=== PATIENT | female | born 1965 | race Caucasian/White ===

== ENCOUNTER 2019-03-29 13:56 | Outpatient (CLI) | payer OTHER, MEDICARE, SELFPAY ==
--- NOTE | ~2019-03-29 | CT_ITS ---
EXAMINATION: CT hip RT wo con DATE: 03/29/2019 14:31 INDICATION: Right hip pain. TECHNIQUE: Computed tomography (CT) of the right hip was performed without intravenous contrast. Auto mated exposure control and iterative reconstruction technique were employed. The dose-length product was 344.60 mGy-cm. COMPARISON: None FINDINGS: There is an electrode in right S3 neural foramen with generator in the subcutaneous fat. Th ere are changes of anterior and posterior fusion procedures at L4-L5 with interbody device, pedicle s crews, and anterior plate and screws. No fracture. There is mild osteoarthritis of right sacroiliac j oint and right hip joint. IMPRESSION: 1. Mild right hip osteoarthritis. Reviewed, dictated and finalized at location A. GE RN
== END 2019-03-29 13:57 | disposition home or self-care (01) ==
PROVIDERS: PCP Internal Medicine
DX: M16.11 Unilateral primary osteoarthritis, right hip (principal)
CPT/HCPCS: 73700

== ENCOUNTER → 2022-10-30 10:34 | Outpatient (CLI) | payer OTHER, MEDICARE, SELFPAY ==
--- NOTE | ~2022-10-30 | CT_ITS ---
EXAMINATION: CT cervical spine wo con DATE: 10/30/2022 10:53 INDICATION: Spinal stenosis, cervical region. Neck pain. TECHNIQUE: Computed tomography (CT) of the cervical spine was performed without intravenous contrast. Automated exposure control and iterative reconstruction technique were employed. The dose-length pro duct was 237.92 mGy-cm. COMPARISON: Cervical spine CT 07/26/2014 FINDINGS: There is 6 degrees levocurvature of cervicothoracic spine. There is 2 mm anterolisthesis of C4 on C5 and C7 on T1. There is kyphosis of cervical spine. There is 2 mm retrolisthesis of C5 on C6 with interbody fusion. There is moderately decreased disc height at C3-C4 and severely decreased dis c height at C6-C7. The following disc levels are specifically discussed: C2-C3: There is no uncovertebral joint osteoarthritis. There is mild bilateral facet joint osteoarthr itis. There is no neural foraminal stenosis. There is no central canal stenosis. C3-C4: There is moderate right and severe left uncovertebral joint osteoarthritis. There is mild righ t and severe left facet joint osteoarthritis. There is mild bilateral neural foraminal stenosis. Ther e is mild central canal stenosis. C4-C5: There is mild bilateral uncovertebral joint osteoarthritis. There is severe right and mild lef t facet joint osteoarthritis. There is moderate right neural foraminal stenosis. There is mild centra l canal stenosis. C5-C6: There is ankylosis of the uncovertebral joints without hypertrophy. There is ankylosis of the facet joints with mild hypertrophy. There is no neural foraminal stenosis. There is no central canal stenosis. C6-C7: There is severe bilateral uncovertebral joint osteoarthritis. There is severe right and modera te left facet joint osteoarthritis. There is mild right and moderate left neural foraminal stenosis. There is mild central canal stenosis. C7-T1: There is no uncovertebral joint osteoarthritis. There is severe bilateral facet joint osteoart hritis. There is mild bilateral neural foraminal stenosis. There is no central canal stenosis. IMPRESSION: 1. Severe cervical spondylosis, worsened from 07/26/2014. 2. Anterior and posterior fusion at C5-C6. Reviewed, dictated and finalized at location E.
== END ==
PROVIDERS: PCP Internal Medicine; Visit Provider Internal Medicine
DX: M48.02 Spinal stenosis, cervical region (principal); M47.892 Other spondylosis, cervical region; Z98.1 Arthrodesis status
CPT/HCPCS: 72125

== ENCOUNTER 2023-03-11 13:57 | Outpatient (CLI) | payer OTHER, MEDICARE, SELFPAY ==
--- NOTE | ~2023-03-11 | XR_ITS ---
EXAMINATION: XR chest 2V 03/11/2023 14:12 INDICATION: Cough PROCEDURE: 2 view chest COMPARISON: No prior studies for comparison. FINDINGS: The lungs are clear. The cardiomediastinal silhouette is within normal limits. There are no pleural effusions. There is no pneumothorax suspected. Spinal leads are noted overlying the lowe r thoracic spine. IMPRESSION: 1: NO ACUTE CARDIOPULMONARY DISEASE. Reviewed, dictated and finalized at location L. R RECONNAISSANCE SPECIALIST
== END 2023-03-11 13:58 ==
PROVIDERS: PCP Internal Medicine; Visit Provider Internal Medicine
DX: R05.9 Cough, unspecified (principal)
CPT/HCPCS: 71046

== ENCOUNTER 2024-06-21 08:30 | Outpatient (CLI) | payer MEDICARE, SELFPAY ==
--- OUTSIDE RECORDS SUMMARY | 2024-06-21 08:34 | XMS_ITS | CONTINUITY OF CARE DOCUMENT ---
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 Name Role Phone Dima MARTINEZ, Umesh Unavailable TRINI MARTINEZ, CHICO Unavailable [phone] TRINI MARTINEZ, CHICO Unavailable [phone] PROBLEMS Condition Status Date Provider Notes PALPITATIONS active Tiffanie Staadairschmidtani DEPRESSION active Tiffanie Staadairschmidt ANXIETY DISORDER GENERALIZED active Tiffanie Covingtonmidtani SHORTNESS OF BREATH SLEEP AP NIKKI USES CPAP active Umesh Ch MD CHEST PAIN-NL STRESS TEST IN 07 completed - Umesh Ch MD HYPERCHOLESTEROLEMIA completed - Umesh Ch MD CAD completed - Umesh Ch MD BACK PAIN, CHRONIC WITH ATON IC BLADDER active Umesh Ch MD Family History Coronary Hear t Disease male < 55: active ? Umesh Ch MD Chest pain--CCS zero , 10/2022 active Rudy Penn Petechiae active David Rodrigues MD Elevated LFT's active David Rodrigues MD Hypertension--echo ef nl, 08/2022 active To payton Ch MD Hyperlipidemia active Umesh Ch MD Elevated liver enzymes active Umesh Ch MD ENCOUNTERS Date Type Provider Location Encounter Diag nosis 11/01 - 11/01 In-person encounter Office Visit Umesh Ch MD [facility] Chest pain--CCS zero , 10/2022 - 08/25 In-person encounter Office Visit Umesh Ch MD [facility] 10/06 - 10/06 In-person encounter Office Visit Umesh Ch MD [facility] HYPERCHOLESTEROLEMIAHyperlipidemiaElevat ed liver enzymes 09/28 - 09/28 In-person encounter Office Visit Umesh Ch MD [facility] 09/10 - 09/10 In-person encounter Office Visit Umesh Ch MD [facility] Hypertension--echo ef nl, 08/2022 - 04/13 In-person encounter Office Visit David Rodrigues MD [facility] Elevated LFT's 03/15 - 03/23 In-person encounter Office Visit David Rodrigues MD [facility] Petechiae 02/21 - 02/21 In-person encounter Office Visit Umesh Ch MD [facility] CHEST PAIN-NL STRESS TEST IN 07Chest pain--CCS zero , 10/2022 - 09/19 In-person encounter Office Visit Umesh Ch MD [facility] 04/02 - 04/02 In-person encounter Office Visit Umesh Ch MD [facility] Family History Coronary Heart Disease ma le < 55: 04/03 - 04/04 In-person encounter Office Visit Umesh Ch MD [facility] 04/04 - 04/05 In-person encounter Office Visit Umesh Ch MD [facility] 03/30 - 04/01 In-person encounter Office Visit Umesh Ch MD [facility] 08/05 - 08/05 In-person encounter Office Visit Umesh Ch MD [facility] BACK PAIN, CHRONIC WITH ATONIC BLADDER 04/03 - 04/03 In-person encounter Office Visit Umesh Ch MD [facility] 09/03 - 09/04 In-person encounter Office Visit Umesh Ch MD [facility] SHORTNESS OF BREATH SLEEP APNEA USES CPA PCAD 04/04 - 04/04 In-person encounter Office Visit Umesh Ch MD [facility] 08/03 - 08/06 In-person encounter Office Visit Umesh Ch MD [facility] 03/02 - 03/05 In-person encounter Office Visit Umesh Ch MD [facility] VITAL SIGNS Date Observation Value Provider Body Mass Index (Ratio) 31.01 kg/m2 Easton Ch MD blood pressure, cuff size regular Ke glen Villalobos blood pressure, diastolic 84 mm[Hg] Ke rrbenjamin Villalobos blood pressure, systolic 130 mm[Hg] Santana Villalobos oxygen saturation, oximetry 96 % Juany Villalobos respiratory rate E&M 12 /min Juany barragan pulse rate 90 /min Juany Zavaleta [facility] weight E&M 198 [lb_av] Juany Zavaleta [facility] height E&M 67 [in_i] Juany Zavaleta [facility] Body Mass Index (Ratio) 30.38 kg/m2 Easton Ch MD blood pressure, diastolic 84 mm[Hg] Libia Vidal blood pressure, systolic 138 mm[Hg] She elma Vidal pulse rate 103 /min Jie Vidal oxygen saturation, oximetry 98 % Jie Vidal weight E&M 194 [lb_av] Jie Vidal blood pressure, cuff size regular caro Vidal height E&M 67 [in_i] Jie Vidal Body Mass Index (Ratio) 29.29 kg/m2 Easton Ch MD blood pressure, diastolic 92 mm[Hg] Li nkLog blood pressure, systolic 164 mm[Hg] Madhavi kLog blood pressure, cuff size large Ke rri Fengnejagdish blood pressure, diastolic 92 mm[Hg] Ke rri Fengyelena blood pressure, systolic 164 mm[Hg] Santana ri Griselda oxygen saturation, oximetry 98 % Juany Griselda respiratory rate E&M 16 /min Juany Morrell [facility] pulse rate 81 /min Juany Aztay [facility] weight E&M 187 [lb_av] Juany Waqar [facility] height E&M 67 [in_i] Juany Waqar [facility] Body Mass Index (Ratio) 30.38 kg/m2 Easton Ch MD blood pressure, resting Yes [facility] blood pressure, diastolic 96 mm[Hg] To [facility] blood pressure, systolic 145 mm[Hg] [facility] oxygen saturation, oximetry 98 % [facility] respiratory rate E&M 16 /min [facility] pulse rate 85 /min [facility] weight E&M 194 [lb_av] [facility] height E&M 67 [in_i] [facility] Body Mass Index (Ratio) 31.95 kg/m2 Kaylee Rodrigues MD blood pressure, diastolic 92 mm[Hg] Zoraida Pringle blood pressure, systolic 158 mm[Hg] Danyell Pringle oxygen saturation, oximetry 94 % Iris Pringle respiratory rate E&M 18 /min Candice Pringle pulse rate 89 /min Iris child weight E&M 204.0 [lb_av] Iris torres height E&M 67 [in_i] Iris Rae lanettemalcolm Body Mass Index (Ratio) 31.63 kg/m2 Kaylee Rodrigues MD blood pressure, cuff size regular Ke rri Griselda blood pressure, diastolic 90 mm[Hg] Ke rri Griselda blood pressure, systolic 160 mm[Hg] Santana paulino Griselda oxygen saturation, oximetry 97 % Juany Griselda respiratory rate E&M 16 /min Juany barragan pulse rate 62 /min Juany Waqar lder weight E&M 202 [lb_av] Juany Waqar er height E&M 67 [in_i] Juany Waqar er blood pressure, diastolic 80 mm[Hg] Zoraida Pringle blood pressure, systolic 136 mm[Hg] Danyell Pringle pulse rate 73 /min Iris Rae lanettemalcolm oxygen saturation, oximetry 98 % Iris Pringle respiratory rate E&M 18 /min Candice Pringle Body Mass Index (Ratio) 32.10 kg/m2 Grace Pringle weight E&M 205 [lb_av] Iris Rae lanettemalcolm pulse rate 75 /min Esther Page oxygen saturation, oximetry 100 % Esther Page respiratory rate E&M 18 /min Estherarash Page blood pressure, diastolic 90 mm[Hg] Kr isty Duncan blood pressure, systolic 130 mm[Hg] Aleni leena Page Body Mass Index (Ratio) 30.85 kg/m2 Ran Page weight E&M 197 [lb_av] Esther Page blood pressure, diastolic 79 mm[Hg] Me reeves Geller blood pressure, systolic 125 mm[Hg] Mica coburn Geller pulse rate 68 /min Emma Geller oxygen saturation, oximetry 97 % Emma Geller Body Mass Index (Ratio) 30.54 kg/m2 Krysta yin Geller respiratory rate E&M 14 /min Emma Geller weight E&M 195 [lb_av] Emma Geller Body Mass Index (Ratio) 27.04 kg/m2 Camilo i Griselda blood pressure, diastolic 69 mm[Hg] Ke rri Griselda blood pressure, systolic 115 mm[Hg] Santana ri Griselda pulse rate 65 /min Juany Waqar murilloer oxygen saturation, oximetry 98 % Juany Griselda respiratory rate E&M 15 /min Juany Porsche barragan weight E&M 172 [lb_av] Juany Waqar lder Body Mass Index (Ratio) 30.18 kg/m2 Glen ph [place] blood pressure, diastolic 82 mm[Hg] Tricia seph [place] blood pressure, systolic 136 mm[Hg] Triston eph [place] pulse rate 87 /min Rehan [place] oxygen saturation, oximetry 93 % Rehan [place] respiratory rate E&M 16 /min Rehan [place] weight E&M 192 [lb_av] Rehan [place] height E&M 67 [in_i] Rehan [place] blood pressure, diastolic 88 mm[Hg] Tricia seph [place] blood pressure, systolic 134 mm[Hg] Triston eph [place] pulse rate 74 /min Rehan [place] oxygen saturation, oximetry 93 % Rehan [place] respiratory rate E&M 16 /min Rehan [place] weight E&M 204 [lb_av] Rehan [place] blood pressure, diastolic 95 mm[Hg] De maria luisa Otero blood pressure, systolic 117 mm[Hg] Cordell donws Otero pulse rate 84 /min Yogesh Mataran oxygen saturation, oximetry 95 % Yogesh Otero respiratory rate E&M 16 /min Yogesh Mataran weight E&M 202 [lb_av] Yogesh Otero blood pressure, diastolic 79 mm[Hg] To payton Ch MD blood pressure, systolic 126 mm[Hg] Daniel Ch MD pulse rate 78 /min Umesh Ch MD oxygen saturation, oximetry 98 % Umesh Ch MD respiratory rate E&M 18 /min Umesh Ch MD weight E&M 191 [lb_av] Umesh Ch MD blood pressure, diastolic 75 mm[Hg] Camilo Manriquez blood pressure, systolic 121 mm[Hg] Dieudonne Manriquez pulse rate 84 /min Natalie Manriquez oxygen saturation, oximetry 98 % Natalie Manriquez respiratory rate E&M 16 /min Patrick Manriquez weight E&M 208 [lb_av] Natalie Manriquez blood pressure, diastolic, left arm 82 mm [Hg] Katerin Castano blood pressure, systolic, left arm 129 mm [Hg] Katerin Castano blood pressure, diastolic, right arm 83 m m[Hg] Katerin Castano blood pressure, systolic, right arm 119 m m[Hg] Katerin Castano pulse rate 66 /min Katerin Castano oxygen saturation, oximetry 97 % Katerin Castano respiratory rate E&M 20 /min Katerin talbert weight E&M 200 [lb_av] Katerin Castano blood pressure, diastolic 59 mm[Hg] Tricia seph [place] blood pressure, systolic 107 mm[Hg] Triston eph [place] pulse rate 80 /min Rehan [place] oxygen saturation, oximetry 98 % Rehan [place] respiratory rate E&M 16 /min Rehan [place] weight E&M 195 [lb_av] Rehan [place] blood pressure, diastolic 80 mm[Hg] Raissa Blair ZORAIDA blood pressure, systolic 132 mm[Hg] Jeremiah Blair ZORAIDA pulse rate 92 /min Lily Johnnie CONWAY oxygen saturation, oximetry 98 % Lily Johnnie CON[facility]AY respiratory rate E&M 16 /min Lily Johnnie [place] weight E&M 195 [lb_av] Lily Johnnie [place] RESULTS Date Observation Value Provider Reference Range Interpretation Location ristocetin cofactor, plasma 98 % [facility] 50-200 von Willebrand factor antigen 131 % [facility] 50-200 B-12, serum 469 pg/mL [facility] 321-825 2208/12 /03 erythrocyte sedimentation rate 15 mm/h [facility] 0-32 antinuclear antibody Negative [facility] Negative rheumatoid factor 10.1 [iU]/mL [facility] 0.0-13.9 activated partial thromboplastin time (aPTT) 27 s [facility] 24-33 prothrombin time (patient) 11.1 s [facility] 9.1-12.0 international normalized ratio (INR) 1.1 [facility] 0.8-1.2 basophil count, absolute 0.0 x10E3/uL [facility] 0.0-0.2 Eosinophil Absolute Count 0.0 X10E3/UL [facility] 0.0-0.4 monocyte count, blood, automated 0.2 X10E3/UL [facility] 0.1-0.9 lymphocyte count, blood, automated 2.3 X10E3/UL [facility] 0.7-3.1 Absolute Neutrophils 2.0 X10E3/UL [facility] 1.4-7.0 basophils as percent of blood leukocytes 0 % [facility] eosinophils as percent of blood leukocytes 1 % [facility] monocytes as percent of blood leukocytes 5 % [facility] lymphocytes as percent of blood leukocytes 50 % [facility] neutrophils as percent of blood leukocytes 44 % [facility] platelet count 161 X10E3/UL [facility] 960-816 2778/12 /03 red blood cell distribution width 13.8 % [facility] 12.3-15.4 mean corpuscular hemoglobin concentration, RBC 33.2 G/DL [facility] 31.5-35.7 mean corpuscular hemoglobin, RBC 29.9 pg [facility] 26.6-33.0 mean corpuscular volume, RBC 90 fL [facility] 79-97 hematocrit, blood 41.6 % [facility] 34.0-46.6 hemoglobin, blood 13.8 g/dL [facility] 11.1-15.9 erythrocyte (RBC) count 4.62 X10E6/UL [facility] 3.77-5.28 leukocyte count, blood 4.5 X10E3/UL [facility] 3.4-10.8 anti-neutrophil cytoplasmic antibody (ANCA), perinuclear staining <1:20 [facility] Neg:<1:20 anti-neutrophil cytoplasmic antibody (ANCA), diffuse cytoplasmic staining <1:20 [facility] Neg:<1:20 Proteinase-3 antibody <3.5 U/mL [facility] 0.0-3.5 MYELOPEROXIDASE AB (PT; SER; QN; ) <9.0 U/mL [facility] 0.0-9.0 alanine aminotransferase (SGPT), serum 110 1/L [facility] 0-32 High aspartate aminotransferase (SGOT), serum 103 1/L [facility] 0-40 High alkaline phosphatase, serum 56 1/L [facility] 39-117 bilirubin, serum, total 0.4 mg/dL [facility] 0.0-1.2 albumin/globulin ratio, serum 1.6 [facility] 1.1-2.5 globulin, serum 2.9 [facility] 1.5-4.5 albumin, serum 4.5 g/dL [facility] 3.5-5.5 protein, total, serum 7.4 g/dL [facility] 6.0-8.5 calcium, serum 9.4 mg/dL [facility] 8.7-10.2 carbon dioxide, venous blood 23 mmol/L [facility] 18-29 chloride, serum 99 mmol/L [facility] 97-106 potassium, serum 3.8 mmol/L [facility] 3.5-5.2 sodium, serum 141 mmol/L [facility] 399-964 9949/12 /03 urea nitrogen/creatinine ratio, serum 17 [facility] 9-23 eGFR if not 105 mL/min/{1.7 3_m2} [facility] >59 creatinine, serum 0.65 mg/dL [facility] 0.57-1.00 urea nitrogen, blood 11 mg/dL [facility] 6-24 blood glucose, random 120 mg/dL [facility] 65-99 High triglyceride, serum, fasting 269 mg/dL Tricia Stephen HDL cholesterol, serum 57 mg/dL Tricia Stephen LDL cholesterol, serum 95 mg/dL Tricia Stephen cholesterol, serum 206 mg/dL Tricia Stephen cholesterol/HDL ratio, serum 3.3 Bridget Lyles triglyceride, serum, fasting 143 mg/dL Bridget Lyles HDL cholesterol, serum 49 mg/dL Bridget Lyles LDL cholesterol, serum 83 mg[facility], serum 161 mg/dL [facility] thyroid stimulating hormone, serum 3.94 u[IU]/mL [facility] thyroxine, serum, total 11.0 ug/dL [facility] globulins, serum, total 2.7 g/dL [facility] Estimated Glomerular Filtration Rate (calc) 80 mL/min/{1.7 3_m2} [facility] albumin/globulin ratio, serum 1.5 [facility] protein, total, serum 6.8 g/dL [facility] albumin, serum 4.1 g/dL [facility] bilirubin, serum, total 0.4 mg/dL [facility] alkaline phosphatase, serum 37 1/L [facility] alanine aminotransferase (SGPT), serum 26 1/L [facility] aspartate aminotransferase (SGOT), serum 18 1/L [facility] calcium, serum 9.5 mg/dL [facility] blood glucose, fasting 81 mg/dL [facility] creatinine, serum 0.88 mg/dL [facility] urea nitrogen, blood 17 mg/dL [facility] carbon dioxide, serum, total 28 mmol/L [facility] chloride, serum 105 mmol/L [facility] potassium, serum 4.4 mmol/L [facility] sodium, serum 142 mmol/L [facility] platelet count 202 10*3/uL [facility] red blood cell distribution width 12.9 % [facility] mean corpuscular hemoglobin concentration, RBC 33.0 g/dL [facility] mean corpuscular hemoglobin, RBC 31.4 pg [facility] mean corpuscular volume, RBC 95.2 fL [facility] hematocrit, blood 39.6 % [facility] hemoglobin, blood 13.0 g/dL [facility] erythrocyte (RBC) count 4.16 10*6/mm3 [facility] monocytes as percent of blood leukocytes 8.1 % [facility] lymphocytes as percent of blood leukocytes 44.6 % [facility] leukocyte count, blood 4.9 10*3/mm3 [facility] triglyceride, serum, fasting 139 mg/dL [facility] HDL cholesterol, serum 38 mg/dL [facility] LDL cholesterol, serum 126 mg/dL [facility] cholesterol, serum 192 mg/dL [facility] alanine aminotransferase (SGPT), serum 101 1/L [facility] aspartate aminotransferase (SGOT), serum 66 1/L [facility] blood glucose, fasting 94 mg/dL [facility] creatinine, serum 0.91 mg/dL [facility] urea nitrogen, blood 15 mg/dL [facility] carbon dioxide, serum, total 23 mmol/L [facility] chloride, serum 107 mmol/L [facility] potassium, serum 4.2 mmol/L [facility] sodium, serum 142 mmol/L [facility] platelet count 229 10*3/uL [facility] hematocrit, blood 40.1 % [facility] hemoglobin, blood 13.6 g/dL [facility] erythrocyte (RBC) count 4.42 10*6/mm3 [facility] leukocyte count, blood 4.4 10*3/mm3 [facility] thyroid stimulating hormone, serum 2.900 u[IU]/mL [facility] thyroxine, serum, total 10.2 ug/dL [facility] T3 (triiodothyronine), serum, free, by JOSE G 135 nmol/L [facility] very low density lipoproteins 37 mg/dL [facility] triglyceride, serum, fasting 187 mg/dL [facility] HDL cholesterol, serum 50 mg/dL [facility] LDL cholesterol, serum 111 mg/dL [facility] cholesterol, serum 198 mg/dL [facility] globulins, serum, total 2.9 g/dL [facility] Estimated Glomerular Filtration Rate (calc) >59 [facility] albumin/globulin ratio, serum 1.4 [facility] protein, total, serum 7.0 g/dL [facility] albumin, serum 4.1 g/dL [facility] bilirubin, serum, total 0.3 mg/dL [facility] alkaline phosphatase, serum 40 1/L [facility] alanine aminotransferase (SGPT), serum 97 1/L [facility] aspartate aminotransferase (SGOT), serum 58 1/L [facility] calcium, serum 9.8 mg/dL [facility] blood glucose, fasting 79 mg/dL [facility] creatinine, serum 0.95 mg/dL [facility] urea nitrogen, blood 18 mg/dL [facility] carbon dioxide, serum, total 26 mmol/L [facility] chloride, serum 102 mmol/L [facility] potassium, serum 4.3 mmol/L [facility] sodium, serum 139 mmol/L [facility] thyroid stimulating hormone, serum 4.09 u[IU]/mL Nhi Ramsey RN alanine aminotransferase (SGPT), serum 35 1/L Nhi Ramsey RN aspartate aminotransferase (SGOT), serum 23 1/L Nhi Ramsey RN blood glucose, fasting 79 mg/dL Nhi Ramsey RN creatinine, serum 0.86 mg/dL Nhi Ramsey RN urea nitrogen, blood 17 mg/dL [facility] carbon dioxide, serum, total 23 mmol/L [facility] chloride, serum 106 mmol/L [facility] potassium, serum 4.2 mmol/L [facility] sodium, serum 141 mmol/L [facility] triglyceride, serum, fasting 162 mg/dL [facility] HDL cholesterol, serum 53 mg/dL [facility] LDL cholesterol, serum 97 mg/dL [facility] cholesterol, serum 182 mg/dL [facility] blood glucose, fasting 79 mg/dL [facility] creatinine, serum 0.86 mg/dL [facility] urea nitrogen, blood 17 mg/dL [facility] platelet count 187 10*3/uL [facility] hematocrit, blood 36.3 % [facility] hemoglobin, blood 12.6 g/dL [facility] leukocyte count, blood 4.0 10*3/mm3 [facility] thyroid stimulating hormone, serum 2.927 u[IU]/mL [facility] bilirubin, serum, total 0.2 mg/dL [facility] alkaline phosphatase, serum 54 1/L [facility] alanine aminotransferase (SGPT), serum 173 1/L [facility] aspartate aminotransferase (SGOT), serum 144 1/L [facility] blood glucose, random 91 mg/dL [facility] creatinine, serum 0.83 mg/dL [facility] urea nitrogen, blood 14 mg/dL [facility] carbon dioxide, serum, total 28 mmol/L [facility] chloride, serum 103 mmol/L [facility] potassium, serum 403 mmol/L [facility] sodium, serum 143 mmol/L Nhi Braulio WALKER platelet count 191 10*3/uL Nhi Ramsey RN hematocrit, blood 37.5 % Nhi Ramsey RN hemoglobin, blood 13.3 g/dL Nhi Braulio WALKER leukocyte count, blood 5.4 10*3/mm3 Nhi Ramsey RN triglyceride, serum, fasting 310 mg/dL Tricia Stephen HDL cholesterol, serum 43 mg/dL Tricia Stephen LDL cholesterol, serum 137 mg/dL Tricia Stephen cholesterol, serum 242 mg/dL Tricia Stephen HISTORY OF MEDICATION USE Medication Status Instructions Dates Provider Indications Com ments losartan 100 mg tablet active TAKE 1 TABLET BY MOUTH ONCE A DAY DUE FOR FOLLOW UP 10/04 Umesh Ch MD hydrochlorothiazide 12.5 mg capsule active TAKE 1 CAPSULE BY MOUTH ONCE A DAY 09/22 Alejandra Sibley duloxetine 30 mg capsule,delayed release(DR/EC) active Rudy Penn trazodone 50 mg tablet active Rudy Penn losartan 100 mg tablet completed Take 1 tablet by mouth once a day 08/25 - 10/04 Juany Villalobos losartan 100 mg tablet completed Take 1 tablet by mouth every night 09/28 - 08/25 Rudy Penn OLMESARTAN MEDOXOMIL 20 MG ORAL TABLET completed half tab once daily 09/10 - 09/28 Umesh Ch MD Miralax 17 gram/dose powder active once a day 03/15 Juany Villalobos NORCO 7.5-325 MG ORAL TABLET active as needed Esther Page Percocet 2.5-325 mg tablet completed Take as needed 04/03 - 11/01 Rudy Penn Premarin 0.3 mg tablet active 1 tablet by mouth once a day Caroline Jeffrey MELOXICAM 15 MG ORAL TABLET completed 1 tablet by mouth daily - 09/06 Juany Villalobos TRAMADOL HCL 50 MG ORAL TABLET completed take one daily - 09/06 Rehan Mejia TRILIPIX 135 MG ORAL CAPSULE DELAYED RELEASE completed 1 tablet by mouth daily 04/25 - 04/03 Umesh Ch MD LEXAPRO 10 MG ORAL TABLET completed ONE TAB. DAILY 03/02 - 08/03 Umesh Ch MD METOPROLOL TARTRATE 50 MG ORAL TABLET completed 25mg in the moring and 25 in the evening twice daily 04/03 - 04/02 Emma Geller ASPIRIN 81 MG ORAL TABLET completed ONE TAB. DAILY - 09/06 Lily Blair MA ESTRADIOL TABLET completed 08/03 - 09/06 Yogesh Otero tizanidine 4 mg tablet active once a day Caroline Jeffrey TRAZODONE HCL TABLET completed 50 mg once a day - 08/25 Rudy Penn Lyrica 150 mg capsule active 1/2 tablet by mouth in the morning and 1 tablet in the evening Caroline Jeffrey VICODIN TABS completed as directed. - 09/19 Esther Page SOCIAL HISTORY Date Observation Value Provider drug use no Rudy Penn alcohol use, average drinks per day social basis only Rudy Penn alcohol use, type Wine Rudy handley alcohol use yes Rudy Penn passive cigarette sm sandra exposure yes Rudy Penn smoking status Never smoker Rudy Penn social history E&M Lives with amada ruiz/friends E thnicity: U nemployed on disability Katt shelby is a former smoker. socially A lcohol: Socially D rug: No Smoking History: Katt heron has never smoked. Rudy Penn smoking status Never smoker Jie Marcy social history reviewed E&M revi ewed - no changes required Rudy Penn physical exercise, f requency, days per week yes Juany Villalobos caffeine use, averag e drinks per day 1 /d Juany Griselda passive cigarette sm sandra exposure yes Juany Bernardodiana smoking status Former smoker Juany Keene jagdish social history reviewed E&M revi ewed - no changes required Rudy Penn social history E&M Lives with fa joseph/friends E thnicity: U nemployed on disability P atient is a former smoker. socially A lcohol: Socially D rug: No Smoking History: P atient is a former smoker. Umesh Ch MD social history reviewed E&M revi ewed - no changes required Umesh Ch MD physical exercise, f requency, days per week yes [facility] caffeine use, averag e drinks per day 1 /d [facility] passive cigarette sm sandra exposure yes [facility] smoking status Former smoker [facility] social history reviewed E&M revi ewed - no changes required David Rodrigues MD physical exercise, f requency, days per week yes Iris Pringle alcohol use, average drinks per day social basis only Iris Pringle alcohol use, type Wine Iris Pringle alcohol use yes IrisAminata Patele mateusz caffeine use, averag e drinks per day 1 /d Iris Pringle drug use no Iris Rae mateusz passive cigarette sm sandra exposure yes Iris Pringle smoking status Former smoker Iris Roper social history E&M Lives with fa joseph/friends E thnicity: U nemployed on disability Smoking History: P atient is a former smoker. socially A lcohol: Socially D rug: No David Rodrigues MD social history reviewed E&M revi ewed - no changes required David Rodrigues MD physical exercise, f requency, days per week yes Juany Villalobos alcohol use, average drinks per day social basis only Juany Villalobos alcohol use, type Wine Juany kirk alcohol use yes Juany Zavaleta lder caffeine use, averag e drinks per day 1 /d Juany Villalobos drug use no Juany Zavaleta lder passive cigarette sm sandra exposure yes Juany Villalobos smoking status Former smoker Juany ulricher social history reviewed E&M revi ewed - no changes required Umesh Ch MD physical exercise, f requency, days per week yes Iris Pringle alcohol use, average drinks per day social basis only Iris Pringle alcohol use, type Wine Iris Pringle alcohol use yes Iris Rae nson caffeine use, averag e drinks per day 1 /d Iris Pringle drug use no Iris Rae nson passive cigarette sm sandra exposure yes Iris Pringle smoking status Former smoker Iris Roper social history reviewed E&M revi ewed - no changes required Umesh Ch MD smoking status Former smoker Esther Page number of grandchildren Umesh Page physical exercise, f requency, days per week yes Esther Page alcohol use, average drinks per day social basis only Esther Duncan alcohol use, type Wine Esther Bus by alcohol use yes Esther Kaylee caffeine use, averag e drinks per day 1 /d Esther Kaylee drug use no Esther Duncan passive cigarette sm sandra exposure yes Esther Page social history reviewed E&M revi ewed - no changes required Umesh Ch MD physical exercise, f requency, days per week yes Emma Geller alcohol use, average drinks per day social basis only Emma Geller alcohol use, type Wine Emma Delacruz caffeine use, averag e drinks per day 1 /d Emma Geller drug use no Emma Geller passive cigarette sm sandra exposure yes Emma Geller smoking status Former smoker Emma Wong nn social history reviewed E&M reviewed Thierry Herman RN social history reviewed E&M reviewed Umesh Ch MD alcohol use, type Wine Rehan Man acop caffeine use, averag e drinks per day 1 /d Rehan Manacop drug use no Rehan [place] passive cigarette sm sandra exposure yes Rehan Man[place] smoking history, tot al pack/year 1/2 pack per day - 19 years [place] smoking, year quit 2005 Rehan Ma nacop smoking status former smoker Rhean Manac op social history reviewed E&M reviewed Umesh Ch MD social history reviewed E&M reviewed Umesh Ch MD social history reviewed E&M reviewed Umesh Ch MD social history reviewed E&M reviewed Umesh Ch MD social history reviewed E&M reviewed Umesh Ch MD social history reviewed E&M reviewed Umesh Ch MD physical exercise, f requency, days per week yes [employer] caffeine use, averag e drinks per day yes [employer] alcohol use, average drinks per day social basis only [employer] number of years as a smoker less than 10 years [employer] smoking status Quit [employer] social history E&M L rosa with family/friends E thnicity: Umesh Ch MD drug use none Umesh Ch MD social history reviewed E&M reviewed Umesh Ch MD physical exercise, f requency, days per week yes [facility] caffeine use, averag e drinks per day yes [facility] alcohol use, average drinks per day social basis only [facility] number of years as a smoker less than 10 years [facility] smoking status Quit [facility] physical exercise, f requency, days per week yes [facility] caffeine use, averag e drinks per day yes [facility] alcohol use, average drinks per day social basis only [facility] number of years as a smoker less than 10 years [facility] smoking status Quit [facility] MENTAL STATUS Date Observation Value Provider assessment of judgme nt and insight E&M Alert and oriented to time, place and person. Mood and affect are normal. Thierry Herman RN assessment of judgme nt and insight E&M Alert and oriented to time, place and person. Mood and affect are normal. Umesh Ch MD assessment of judgme nt and insight E&M Alert and oriented to time, place and person. Mood and affect are normal. Umesh Ch MD assessment of judgme nt and insight E&M Alert and oriented to time, place and person. Mood and affect are normal. Umesh Ch MD assessment of judgme nt and insight E&M Alert and oriented to time, place and person. Mood and affect are normal. Umesh Ch MD assessment of judgme nt and insight E&M Alert and oriented to time, place and person. Mood and affect are normal. Umesh Ch MD assessment of judgme nt and insight E&M Alert and oriented to time, place and person. Mood and affect are normal. Umesh Ch MD assessment of judgme nt and insight E&M Alert and oriented to time, place and person. Mood and affect are normal. Nhi Ramsey RN assessment of judgme nt and insight E&M Alert and oriented to time, place and person. Mood and affect are normal. Umesh Ch MD FAMILY HISTORY Family Member Condition Father [place] male <55 Mother Family History Unkno wn Paternal Grandmother Family History of C oronary Artery Disease: Father Family History Coron isatu Heart Disease male < 55: INSURANCE PROVIDERS Payer name Policy type / Coverage type [employer]ra red constitution party ID [employer] WIG [id number] [place] SEC[place] [id number] ADVANCE DIRECTIVES Name Date DISCUSSED - NO DECISION MADE TREATMENT PLAN Date Name Performer [id number],S, Rudy Ahmedza i [id number],S, Rudy Ahmedza i [id number],S, Rudy Ahmedza i [id number],S, Rudy Ahmedza i [id number],S, Rudy Ahmedza i [id number],S, Rudy Ahmedza i [id number],S, Rudy Ahmedza i [id number],S, Rudy Ahmedza i [id number],S, Rudy Ahmedza i [id number],S, Rudy Ahmedza i [id number],S, Rudy Ahmedza i [id number],S, Rudy Ahmedza i [id number],S, Rudy Ahmedza i [id number],B, Rudy Ahmedza i [id number],S, Rudy Ahmedza i [id number],B, Rudy Ahmedza i Cardiology: H er updated medication list for this problem includes: Losartan 100 Mg Tablet (Losartan) ..... Take 1 tablet by mouth once a day due for follow up Hydrochlorothiazide 12.5 Mg Capsule (Hydrochlorothiazide) ..... Take 1 capsule by mouth once a day Rudy Ahmedzai Cardiology Rudy Ahmedzai Cardiology: H er updated medication list for this problem includes: Losartan 100 Mg Tablet (Losartan) ..... Take 1 tablet by mouth once a day due for follow up Hydrochlorothiazide 12.5 Mg Capsule (Hydrochlorothiazide) ..... Take 1 capsule by mouth once a day BP today: 130/84 P rior BP: 138/84 (08/25/2022) Labs Reviewed: C reat: 0.65 (01/18/2016) C hol: 206 (01/31/2013) HDL: 57 (01/31/2013) LDL: 95 (01/31/2013) T (01/31/2013) Rudy Ahmedzai Cardiology Rudy Ahmedzai Cardiology Rudy Ahmedzai Telehealth Rudy Ahmedzai Telehealth Rudy Ahmedzai Telehealth Rudy Ahmedzai Telehealth Rudy Ahmedzai Cardiology Rudy Ahmedzai Cardiology Rudy Ahmedzai Cardiology Rudy Ahmedzai Cardiology Rudy Ahmedzai Cardiology Rudy Ahmedzai Cardiology Rudy Ahmedzai Cardiology Rudy Ahmedzai Cardiology Rudy Ahmedzai Cardiology Rudy Ahmedzai Cardiology Rudy Ahmedzai Cardiology Rudy Ahmedzai Cardiology Rudy Ahmedzai TeleHealth Umesh Ch MD TeleHealth Umesh Ch MD TeleHealth Umesh Ch MD TeleHealth Umesh Ch MD Cardiology - incomplete Umesh cotto MD Cardiology - incomplete Umesh cotto MD Cardiology - incomplete Umesh cotto MD Cardiology - incomplete Umesh cotto MD Hem/Onc:The patient' s LFTs have been chronically elevated. This may be secondary to her chronic use of Premarin. I will obtain a RUQ ultrasound for further evaluation. Orders: S NOMED-CT: [id number] Current Medications Documented ([id number]) U S, Abdomen ([id number]) 9 9214 MOD Complex ([id number]) David Rodrigues MD Hem/Onc:The patient' s rash on forearms is not likely petechiae. Her hematologic work up is negative thus far. If she develops a bleeding diathasis, then we consider platelet function assay for further evaluation. I query if this rash is not secodnary to an underlying dermatologic issue. 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 O rders: 9 9214 MOD Complex ([id number]) David Rodrigues MD Hem/Onc New Patient: The patient has noticed petechiae that self resolve within a week of appearing. The patient had a normal platelet count and coags in July 2015. I doubt an underlying hematologic issue is the cause of this. However, I will recheck CBC and coags as well as evaluation for von Willebrand's disease. Her petechiae are more likely secondary to an underlying vasculitis. I will check DANIELLE and RF. She will return in two weeks to [facility] lab testing. Orders: P ARTIAL THROMBOPLASTIN TIME, ACTIVATED (763) P rotime (22455) V ITAMIN B12 (927) C BC (INCLUDES DIFF/PLT) (6399) C OMPREHENSIVE METABOLIC PANEL W/EGFR (33929) S ED RATE BY MODIFIED WESTERGREN (809) A NA SCREEN REFL TO TITER, IFA (249) R HEUMATOID FACTOR (4418) v on Willebrand Factor (vWF) Ag (097367) V ON WILLEBRAND FACTOR ACTIVITY (76486) R ISTOCETIN COFACTOR (3459) F actor VIII Antigen (189330) A NCA SCREEN WITH REFLEX TO C- & P-ANCA TITERS AND MPO OR AL-3 AB (68281) 9 9244 MOD C omplex (CPT-[id number]) David Rodrigues MD Cardiology Umesh Ch MD Cardiology Umesh Ch MD Cardiology Umesh Ch MD Cardiology Umesh Ch MD Cardiology Umesh Ch MD Cardiology Umesh Ch MD Cardiology Umesh Ch MD Cardiology Umesh Ch MD Cardiology Umesh Ch MD Cardiology Umesh Ch MD : H er updated medication list for this problem includes: Metoprolol Tartrate 50 Mg Tabs (Metoprolol tartrate) ..... 25mg in the moring and 25 in the evening twice daily BP today: / Prior BP: 136/82 (02/02/2012) H gb: 13.0 (08/12/2010) HCT: 39.6 (08/12/2010) RBC: 4.16 (08/12/2010) WBC: 4.9 (08/12/2010) B UN: 17 (08/12/2010) Creat: 0.88 (08/12/2010) Glucose: 81 (08/12/2010) Na+: 142 (08/12/2010) K+: 4.4 (08/12/2010) Cl: 105 (08/12/2010) Calcium: 9.5 (08/12/2010) TSH: 3.94 (08/12/2010) T4 (total): 11.0 (08/12/2010) H olter Monitor Comments: NSR. The avg HR was 84bpm with a max HR of 153 bpm, min HR of 57bpm. First degree and second degree type 1 AV block. (02/22/2007) N uclear Stress Findings: Negative no evidence of ischemia. Normal myocardial thallium perfusion without evidence of reversible ischemia. (05/06/2006) Orders: E KG ([id number]) Umesh Ch MD : T he following medications were removed from the medication list: Trilipix 135 Mg Cpdr (Choline fenofibrate) ..... 1 tablet by mouth daily BP today: / Prior BP: 136/82 (02/02/2012) C HOL: 161 (08/12/2010) LDL: 83 (08/12/2010) HDL: 49 (08/12/2010) T (08/12/2010) Umesh Ch MD Yearly follow-up: H er updated medication list for this problem includes: Metoprolol Tartrate 50 Mg Tabs (Metoprolol tartrate) ..... 50mg in the moring and 25 in the evening twice daily & #13;BP today: 136/82 Prior BP: 134/88 (01/27/2011) N uclear Stress Findings: Negative no evidence of ischemia. Normal myocardial thallium perfusion without evidence of reversible ischemia. (05/06/2006) C arotid Doppler/Duplex: Normal study (02/16/2007) A rterial Doppler (leg): Normal arterial study of the upper extremities. (02/24/2007) C HOL: 161 (08/12/2010) LDL: 83 (08/12/2010) HDL: 49 (08/12/2010) T (08/12/2010) H gb: 13.0 (08/12/2010) HCT: 39.6 (08/12/2010) RBC: 4.16 (08/12/2010) WBC: 4.9 (08/12/2010) B UN: 17 (08/12/2010) Creat: 0.88 (08/12/2010) Glucose: 81 (08/12/2010) N a+: 142 (08/12/2010) K+: 4.4 (08/12/2010) Cl: 105 (08/12/2010) TSH: 3.94 (08/12/2010) T4 (total): 11.0 (08/12/2010) Umesh Ch MD Yearly follow-up: H er updated medication list for this problem includes: Metoprolol Tartrate 50 Mg Tabs (Metoprolol tartrate) ..... 50mg in the moring and 25 in the evening twice daily & #13;BP today: 136/82 Prior BP: 134/88 (01/27/2011) H gb: 13.0 (08/12/2010) HCT: 39.6 (08/12/2010) RBC: 4.16 (08/12/2010) WBC: 4.9 (08/12/2010) B UN: 17 (08/12/2010) Creat: 0.88 (08/12/2010) Glucose: 81 (08/12/2010) N a+: 142 (08/12/2010) K+: 4.4 (08/12/2010) Cl: 105 (08/12/2010) Calcium: 9.5 (08/12/2010) TSH: 3.94 (08/12/2010) T4 (total): 11.0 (08/12/2010) H olter Monitor Comments: NSR. The avg HR was 84bpm with a max HR of 153 bpm, min HR of 57bpm. First degree and second degree type 1 AV block. (02/22/2007) N uclear Stress Findings: Negative no evidence of ischemia. Normal myocardial thallium perfusion without evidence of reversible ischemia. (05/06/2006) Umesh Ch MD 6 month follow-up: H er updated medication list for this problem includes: Metoprolol Tartrate 50 Mg Tabs (Metoprolol tartrate) ..... 50mg in the moring and 25 in the evening twice daily & #13;BP today: 134/88 Prior BP: 117/95 (08/05/2010) N uclear Stress Findings: Negative no evidence of ischemia. Normal myocardial thallium perfusion without evidence of reversible ischemia. (05/06/2006) C arotid Doppler/Duplex: Normal study (02/16/2007) A rterial Doppler (leg): Normal arterial study of the upper extremities. (02/24/2007) C HOL: 161 (08/12/2010) LDL: 83 (08/12/2010) HDL: 49 (08/12/2010) T (08/12/2010) H gb: 13.0 (08/12/2010) HCT: 39.6 (08/12/2010) RBC: 4.16 (08/12/2010) WBC: 4.9 (08/12/2010) B UN: 17 (08/12/2010) Creat: 0.88 (08/12/2010) Glucose: 81 (08/12/2010) N a+: 142 (08/12/2010) K+: 4.4 (08/12/2010) Cl: 105 (08/12/2010) TSH: 3.94 (08/12/2010) T4 (total): 11.0 (08/12/2010) E chocardiogram: Normal left ventricular systolic function. Normal left ventricular size. Normal left ventricular wall thickness. The E to A ratio shows signs of borderline left ventricular diastolic dysfunction. Normal E/E` 8.0. Left ventricular ejection fraction is estimated at 60%. No significant valvular abnormalities. GC (08/05/2010) Umesh Ch MD 6 month follow-up: H er updated medication list for this problem includes: Trilipix 135 Mg Cpdr (Choline fenofibrate) ..... 1 tablet by mouth daily BP today: 134/88 Prior BP: 117/95 (08/05/2010) C HOL: 161 (08/12/2010) LDL: 83 (08/12/2010) HDL: 49 (08/12/2010) T (08/12/2010) Umesh Ch MD follow up: H er updated medication list for this problem includes: Metoprolol Tartrate 50 Mg Tabs (Metoprolol tartrate) ..... 50mg in the moring and 25 in the evening twice daily Umesh Ch MD follow up Umesh Ch MD follow up Umesh Ch MD follow up: H er updated medication list for this problem includes: Metoprolol Tartrate 50 Mg Tabs (Metoprolol tartrate) ..... 50mg in the moring and 25 in the evening twice daily BP today: 117/95 Prior BP: 126/79 (01/31/2010) H gb: 13.6 (03/03/2010) HCT: 40.1 (03/03/2010) RBC: 4.42 (03/03/2010) WBC: 4.4 (03/03/2010) B UN: 15 (03/03/2010) Creat: 0.91 (03/03/2010) Glucose: 94 (03/03/2010) N a+: 142 (03/03/2010) K+: 4.2 (03/03/2010) Cl: 107 (03/03/2010) Calcium: 9.8 (09/05/2009) TSH: 2.900 (09/05/2009) T4 (total): 10.2 (09/05/2009) H olter Monitor Comments: NSR. The avg HR was 84bpm with a max HR of 153 bpm, min HR of 57bpm. First degree and second degree type 1 AV block. (02/22/2007) N uclear Stress Findings: Negative no evidence of ischemia. Normal myocardial thallium perfusion without evidence of reversible ischemia. (05/06/2006) E chocardiogram: Normal LV ystolic function. Normal LV size. Mild concentric LVH. Normal E/E` 4.0. LVEF 60%. The left atrium is normal in size. T race MR. Aortic valve appears structurally normal. Tri-leaflet aortic valve. Trace TR. Non-specific thickening of the TV. The IVC is not well visualized. Unable to adequately assess the RVSP. Normal aortic root. [place] office (02/01/2009) Umesh Ch MD follow up: H er updated medication list for this problem includes: Trilipix 135 Mg Cpdr (Choline fenofibrate) ..... 1 tablet by mouth daily BP today: 117/95 Prior BP: 126/79 (01/31/2010) C HOL: 192 (03/03/2010) LDL: 126 (03/03/2010) HDL: 38 (03/03/2010) T (03/03/2010) Umesh Ch MD : H er updated medication list for this problem includes: Metoprolol Tartrate 50 Mg Tabs (Metoprolol tartrate) ..... 50mg in the moring and 25 in the evening twice daily BP today: 126/79 Prior BP: 121/75 (09/03/2009) H gb: 12.6 (07/31/2008) HCT: 36.3 (07/31/2008) WBC: 4.0 (07/31/2008) B UN: 18 (09/05/2009) Creat: 0.95 (09/05/2009) Glucose: 79 (09/05/2009) N a+: 139 (09/05/2009) K+: 4.3 (09/05/2009) Cl: 102 (09/05/2009) Calcium: 9.8 (09/05/2009) TSH: 2.900 (09/05/2009) T4 (total): 10.2 (09/05/2009) H olter Monitor Comments: NSR. The avg HR was 84bpm with a max HR of 153 bpm, min HR of 57bpm. First degree and second degree type 1 AV block. (02/22/2007) N uclear Stress Findings: Negative no evidence of ischemia. Normal myocardial thallium perfusion without evidence of reversible ischemia. (05/06/2006) E chocardiogram: Normal LV ystolic function. Normal LV size. Mild concentric LVH. Normal E/E` 4.0. LVEF 60%. The left atrium is normal in size. T race MR. Aortic valve appears structurally normal. Tri-leaflet aortic valve. Trace TR. Non-specific thickening of the TV. The IVC is not well visualized. Unable to adequately assess the RVSP. Normal aortic root. [place] office (02/01/2009) Umesh Ch MD : H er updated medication list for this problem includes: Metoprolol Tartrate 50 Mg Tabs (Metoprolol tartrate) ..... 50mg in the moring and 25 in the evening twice daily Umesh Ch MD : H er updated medication list for this problem includes: Metoprolol Tartrate 50 Mg Tabs (Metoprolol tartrate) ..... 50mg in the moring and 25 in the evening twice daily BP today: 126/79 Prior BP: 121/75 (09/03/2009) N uclear Stress Findings: Negative no evidence of ischemia. Normal myocardial thallium perfusion without evidence of reversible ischemia. (05/06/2006) C arotid Doppler/Duplex: Normal study (02/16/2007) A rterial Doppler (leg): Normal arterial study of the upper extremities. (02/24/2007) C HOL: 198 (09/05/2009) LDL: 111 (09/05/2009) HDL: 50 (09/05/2009) T (09/05/2009) H gb: 12.6 (07/31/2008) HCT: 36.3 (07/31/2008) WBC: 4.0 (07/31/2008) B UN: 18 (09/05/2009) Creat: 0.95 (09/05/2009) Glucose: 79 (09/05/2009) N a+: 139 (09/05/2009) K+: 4.3 (09/05/2009) Cl: 102 (09/05/2009) TSH: 2.900 (09/05/2009) T4 (total): 10.2 (09/05/2009) E chocardiogram: Normal LV ystolic function. Normal LV size. Mild concentric LVH. Normal E/E` 4.0. LVEF 60%. The left atrium is normal in size. T race MR. Aortic valve appears structurally normal. Tri-leaflet aortic valve. Trace TR. Non-specific thickening of the TV. The IVC is not well visualized. Unable to adequately assess the RVSP. Normal aortic root. [place] office (02/01/2009) Umesh Ch MD f/u: H er updated medication list for this problem includes: Metoprolol Tartrate 50 Mg Tabs (Metoprolol tartrate) ..... One tab. twice daily BP today: 121/75 Prior BP: 107/59 (08/03/2008) H gb: 12.6 (07/31/2008) HCT: 36.3 (07/31/2008) WBC: 4.0 (07/31/2008) B UN: 17 (07/31/2008) Creat: 0.86 (07/31/2008) Glucose: 79 (07/31/2008) N a+: 141 (07/31/2008) K+: 4.2 (07/31/2008) Cl: 106 (07/31/2008) TSH: 4.09 (07/31/2008) Holter Monitor Comments: NSR. The avg HR was 84bpm with a max HR of 153 bpm, min HR of 57bpm. First degree and second degree type 1 AV block. (02/22/2007) Nuclear Stress Findings: Negative no evidence of ischemia. Normal myocardial thallium perfusion without evidence of reversible ischemia. (05/06/2006) E chocardiogram: Normal LV ystolic function. Normal LV size. Mild concentric LVH. Normal E/E` 4.0. LVEF 60%. The left atrium is normal in size. T race MR. Aortic valve appears structurally normal. Tri-leaflet aortic valve. Trace TR. Non-specific thickening of the TV. The IVC is not well visualized. Unable to adequately assess the RVSP. Normal aortic root. [place] office (02/01/2009) Umesh Ch MD f/u: H er updated medication list for this problem includes: Metoprolol Tartrate 50 Mg Tabs (Metoprolol tartrate) ..... One tab. twice daily Trilipix 135 Mg Cpdr (Choline fenofibrate) ..... 1 tablet by mouth daily BP today: 121/75 Prior BP: 107/59 (08/03/2008) N uclear Stress Findings: Negative no evidence of ischemia. Normal myocardial thallium perfusion without evidence of reversible ischemia. (05/06/2006) C arotid Doppler/Duplex: Normal study (02/16/2007) A rterial Doppler (leg): Normal arterial study of the upper extremities. (02/24/2007) C HOL: 182 (07/31/2008) LDL: 97 (07/31/2008) HDL: 53 (07/31/2008) T (07/31/2008) H gb: 12.6 (07/31/2008) HCT: 36.3 (07/31/2008) WBC: 4.0 (07/31/2008) B UN: 17 (07/31/2008) Creat: 0.86 (07/31/2008) Glucose: 79 (07/31/2008) N a+: 141 (07/31/2008) K+: 4.2 (07/31/2008) Cl: 106 (07/31/2008) TSH: 4.09 (07/31/2008) Umesh Ch MD f/u: H er updated medication list for this problem includes: Trilipix 135 Mg Cpdr (Choline fenofibrate) ..... 1 tablet by mouth daily BP today: 121/75 Prior BP: 107/59 (08/03/2008) CHOL: 182 (07/31/2008) LDL: 97 (07/31/2008) HDL: 53 (07/31/2008) T (07/31/2008) Umesh Ch MD f/u: H er updated medication list for this problem includes: Metoprolol Tartrate 50 Mg Tabs (Metoprolol tartrate) ..... One tab. twice daily BP today: 121/75 Prior BP: 107/59 (08/03/2008) N uclear Stress Findings: Negative no evidence of ischemia. Normal myocardial thallium perfusion without evidence of reversible ischemia. (05/06/2006) E chocardiogram: Normal LV ystolic function. Normal LV size. Mild concentric LVH. Normal E/E` 4.0. LVEF 60%. The left atrium is normal in size. T race MR. Aortic valve appears structurally normal. Tri-leaflet aortic valve. Trace TR. Non-specific thickening of the TV. The IVC is not well visualized. Unable to adequately assess the RVSP. Normal aortic root. [place] office (02/01/2009) H gb: 12.6 (07/31/2008) HCT: 36.3 (07/31/2008) WBC: 4.0 (07/31/2008) B UN: 17 (07/31/2008) Creat: 0.86 (07/31/2008) Glucose: 79 (07/31/2008) N a+: 141 (07/31/2008) K+: 4.2 (07/31/2008) Cl: 106 (07/31/2008) SGOT (AST): 23 (07/31/2008) SGPT (ALT): 35 (07/31/2008) TSH: 4.09 (07/31/2008) Umesh Ch MD [facility]: H er updated medication list for this problem includes: Trilipix 135 Mg Cpdr (Choline fenofibrate) ..... 1 tablet by mouth daily BP today: / Prior BP: 107/59 (08/03/2008) C HOL: 182 (07/31/2008) LDL: 97 (07/31/2008) HDL: 53 (07/31/2008) T (07/31/2008) Umesh Ch MD [facility]: H er updated medication list for this problem includes: Metoprolol Tartrate 50 Mg Tabs (Metoprolol tartrate) ..... One tab. twice daily BP today: / Prior BP: 107/59 (08/03/2008) H gb: 12.6 (07/31/2008) HCT: 36.3 (07/31/2008) WBC: 4.0 (07/31/2008) B UN: 17 (07/31/2008) Creat: 0.86 (07/31/2008) Glucose: 79 (07/31/2008) N a+: 141 (07/31/2008) K+: 4.2 (07/31/2008) Cl: 106 (07/31/2008) TSH: 4.09 (07/31/2008) Holter Monitor Comments: NSR. The avg HR was 84bpm with a max HR of 153 bpm, min HR of 57bpm. First degree and second degree type 1 AV block. (02/22/2007) N uclear Stress Findings: Negative no evidence of ischemia. Normal myocardial thallium perfusion without evidence of reversible ischemia. (05/06/2006) E chocardiogram: Trace MR. Minimal TR. Mitral valve prolapse. (02/17/2007) Umesh Ch MD 6 month follow-up wi th Echo today: H er updated medication list for this problem includes: Metoprolol Tartrate 50 Mg Tabs (Metoprolol tartrate) ..... One tab. twice daily BP today: / Prior BP: 107/59 (08/03/2008) H gb: 12.6 (07/31/2008) HCT: 36.3 (07/31/2008) WBC: 4.0 (07/31/2008) B UN: 17 (07/31/2008) Creat: 0.86 (07/31/2008) Glucose: 79 (07/31/2008) N a+: 141 (07/31/2008) K+: 4.2 (07/31/2008) Cl: 106 (07/31/2008) TSH: 4.09 (07/31/2008) Holter Monitor Comments: NSR. The avg HR was 84bpm with a max HR of 153 bpm, min HR of 57bpm. First degree and second degree type 1 AV block. (02/22/2007) N uclear Stress Findings: Negative no evidence of ischemia. Normal myocardial thallium perfusion without evidence of reversible ischemia. (05/06/2006) E chocardiogram: Trace MR. Minimal TR. Mitral valve prolapse. (02/17/2007) Umesh Ch MD 6 month follow-up with [facility] [place] Umesh Ch MD 6 month follow-up wi th Echo today: H er updated medication list for this problem includes: Metoprolol Tartrate 50 Mg Tabs (Metoprolol tartrate) ..... One tab. twice daily Orders: E KG ([id number]) BP today: / Prior BP: 107/59 (08/03/2008) N uclear Stress Findings: Negative no evidence of ischemia. Normal myocardial thallium perfusion without evidence of reversible ischemia. (05/06/2006) E chocardiogram: Trace MR. Minimal TR. Mitral valve prolapse. (02/17/2007) H gb: 12.6 (07/31/2008) HCT: 36.3 (07/31/2008) WBC: 4.0 (07/31/2008) B UN: 17 (07/31/2008) Creat: 0.86 (07/31/2008) Glucose: 79 (07/31/2008) N a+: 141 (07/31/2008) K+: 4.2 (07/31/2008) Cl: 106 (07/31/2008) SGOT (AST): 23 (07/31/2008) SGPT (ALT): 35 (07/31/2008) TSH: 4.09 (07/31/2008) Umesh Ch MD 6 month [id number] eds pt instructions, then letter. rest done: B P today: 107/59 Prior BP: 132/80 (03/02/2008) H gb: 12.6 (07/31/2008) HCT: 36.3 (07/31/2008) WBC: 4.0 (07/31/2008) B UN: 17 (07/31/2008) Creat: 0.86 (07/31/2008) Glucose: 79 (07/31/2008) N a+: 143 (04/18/2008) K+: 403 (04/18/2008) Cl: 103 (04/18/2008) TSH: 2.927 (04/18/2008) Holter Monitor Comments: NSR. The avg HR was 84bpm with a max HR of 153 bpm, min HR of 57bpm. First degree and second degree type 1 AV block. (02/22/2007) N uclear Stress Findings: Negative no evidence of ischemia. Normal myocardial thallium perfusion without evidence of reversible ischemia. (05/06/2006) E chocardiogram: Trace MR. Minimal TR. Mitral valve prolapse. (02/17/2007) Nhi Ramsey RN 6 month [id number] eds pt instructions, then letter. rest done: B P today: 107/59 Prior BP: 132/80 (03/02/2008) H gb: 12.6 (07/31/2008) HCT: 36.3 (07/31/2008) WBC: 4.0 (07/31/2008) B UN: 17 (07/31/2008) Creat: 0.86 (07/31/2008) Glucose: 79 (07/31/2008) N a+: 143 (04/18/2008) K+: 403 (04/18/2008) Cl: 103 (04/18/2008) TSH: 2.927 (04/18/2008) Holter Monitor Comments: NSR. The avg HR was 84bpm with a max HR of 153 bpm, min HR of 57bpm. First degree and second degree type 1 AV block. (02/22/2007) N uclear Stress Findings: Negative no evidence of ischemia. Normal myocardial thallium perfusion without evidence of reversible ischemia. (05/06/2006) E chocardiogram: Trace MR. Minimal TR. Mitral valve prolapse. (02/17/2007) Nhi Ramsey RN 6 month [id number] eds pt instructions, then letter. rest done: B P today: 107/59 Prior BP: 132/80 (03/02/2008) N uclear Stress Findings: Negative no evidence of ischemia. Normal myocardial thallium perfusion without evidence of reversible ischemia. (05/06/2006) C arotid Doppler/Duplex: Normal study (02/16/2007) A rterial Doppler (leg): Normal arterial study of the upper extremities. (02/24/2007) C HOL: 242 (04/19/2008) LDL: 137 (04/19/2008) HDL: 43 (04/19/2008) T (04/19/2008) H gb: 12.6 (07/31/2008) HCT: 36.3 (07/31/2008) WBC: 4.0 (07/31/2008) B UN: 17 (07/31/2008) Creat: 0.86 (07/31/2008) Glucose: 79 (07/31/2008) N a+: 143 (04/18/2008) K+: 403 (04/18/2008) Cl: 103 (04/18/2008) TSH: 2.927 (04/18/2008) Echocardiogram: Trace MR. Minimal TR. Mitral valve prolapse. (02/17/2007) Nhi Ramsey RN FU: T he following medications were removed from the medication list: Aspirin 81 Mg Tabs (Aspirin) ..... One tab. daily BP today: 132/80 Prior BP: / () H olter Monitor Comments: NSR. The avg HR was 84bpm with a max HR of 153 bpm, min HR of 57bpm. First degree and second degree type 1 AV block. (02/22/2007) N uclear Stress Findings: Negative no evidence of ischemia. Normal myocardial thallium perfusion without evidence of reversible ischemia. (05/06/2006) E chocardiogram: Trace MR. Minimal TR. Mitral valve prolapse. (02/17/2007) Umesh Ch MD FU: T he following medications were removed from the medication list: Aspirin 81 Mg Tabs (Aspirin) ..... One tab. daily BP today: 132/80 Prior BP: / () H olter Monitor Comments: NSR. The avg HR was 84bpm with a max HR of 153 bpm, min HR of 57bpm. First degree and second degree type 1 AV block. (02/22/2007) N uclear Stress Findings: Negative no evidence of ischemia. Normal myocardial thallium perfusion without evidence of reversible ischemia. (05/06/2006) E chocardiogram: Trace MR. Minimal TR. Mitral valve prolapse. (02/17/2007) Umesh Ch MD FU Umesh Ch MD Date Name CT, Coronary Calcium Score Holter Monitor 48 hr Complete Echo Complete Echo US, Abdomen ANCA SCREEN WITH REF SYLVAIN TO C- & P-ANCA TITERS AND MPO OR AL-3 AB Factor VIII Antigen RISTOCETIN COFACTOR VON WILLEBRAND FACTO R ACTIVITY von Willebrand Facto r (vWF) Ag RHEUMATOID FACTOR DANIELLE SCREEN REFL TO T ITER, IFA SED RATE BY MODIFIED [place]EN COMPREHENSIVE METABO LIC PANEL W/EGFR CBC (INCLUDES DIFF/P LT) VITAMIN B12 Protime PARTIAL THROMBOPLAST IN TIME, ACTIVATED HISTORY OF PROCEDURES Procedure Date Procedure Name Provider Procedure Notes S tatus CT- Coronary CA score Umesh Ch MD completed EKG Umesh Ch MD completed EKG Umesh Ch MD completed SNOMED-CT: 578093119 [id number] Current Medications Documented David Rodrigues MD completed Stress EKG Chriss Rasmussen MD complet ed Regadenoson, 4 units Umesh Ch MD completed Cardiolite, 2 units Umesh Ch MD completed SPECT Images Chriss Rasmussen MD compl eted SNOMED-CT: [id number] Current Medications Documented David Rodrigues MD completed SNOMED-CT: [id number] Current Medications Documented Umesh Ch MD completed SNOMED-CT: [id number] Physical Exam, Performed: Pulse Exam of Foot Umesh Ch MD completed EKG Umesh Ch MD completed SNOMED-CT: [id number] Current Medications Documented Umesh Ch MD completed EKG Umesh Ch MD completed EKG Umesh Ch MD completed ePrescribe - Check t his box if eRx is used Umesh Ch MD completed EKG Umesh Ch MD completed EKG Umesh Ch MD completed EKG Umesh Ch MD completed LUIS ALBERTOG Umesh Ch MD completed
--- OUTSIDE RECORDS SUMMARY | 2024-06-21 08:34 | XMS_ITS | Data Portability ---
[facility] Organization [facility] Address [address] [facility] [place] [address] Care Team Providers Care Extrusion Bender Name Role Phone CLAUDIA GARVIN Vessel Builder Unavailable Assessment Encounter Date Assessment Date Assessment LastModified by Organization Details LastModified Time 09/10/2020 09/10/2020 Miri SANTIAGO [email or web address] Not available 09/09/2020 21:49:57 11/13/2021 11/13/2021 PAMELA Cole [email or web address] Not available 11/13/2021 15:01:18 Plan of Treatment Reminders Order Date Submit Date Provider Last Modified By Organization Details Last Modified Time Details Appointments None recorded . Lab None recorded . Referral genetic counselo r referral [address] Scheduling, [address] [place], [address], 09:02:38 Procedures None recorded . Surgeries None recorded . Imaging MAMMO, screenin g, bilatera l 2020 021 [facility], [address] [place], [address], 10:06:22 Medication Orders Premarin 1.25 mg tablet 2023 024 [facility], [address] [place] [address], [id number], 17:16:54 estradio l 0.01% (0.1 mg/gram) vaginal cream 2023 024 [facility], [address] [place] [address], [id number], 4 13:32:04 Replens vaginal gel 2023 024 [id number], [address] [place], [address], 4 09:07:31 estradio l 0.01% (0.1 mg/gram) vaginal cream 2022 023 [facility], [address] [place] [address], [id number], 3 13:03:44 Premarin 1.25 mg tablet 2022 023 [facility], [address] [place] [address], [id number], 3 13:03:45 metronid azole 0.75 % (37.5 mg/5 gram) vaginal gel 2022 023 [facility], [address] [place] [address], [id number], 3 13:03:44 Premarin 1.25 mg tablet 2021 022 [facility], [address] [place] [address], [id number], 3 16:18:13 estradio l 0.01% (0.1 mg/gram) vaginal cream 2021 022 ERICK [id number], [address] [place], [address], 2 12:49:39 fluconaz ole 150 mg tablet 2021 022 [id number], [address], [place], [address], 3 12:10:24 Premarin 1.25 mg tablet 2020 [id number], [address], [place], [address], 1 17:58:25 Premarin 1.25 mg tablet 2020 021 [facility], [address] [place] [address], [id number], 1 17:59:29 Premarin 1.25 mg tablet 2018 019 ATHENAFAX [facility], [address] [place], [address], 9 17:05:17 multivit miller tablet 2018 019 [email or web address] [id number], [address] [facility], [place], [address], 1 14:02:25 Calcium with Vitamin D 600 mg-10 mcg (400 unit) tablet 2018 019 [email or web address] [facility], [address] [facility], [place], [address], 1 14:01:47 Premarin 0.625 mg/gram vaginal cream 2018 019 [email or web address] [id number], [address], [place], [address], 1 14:02:44 clobetas ol 0.05 % topical cream 2018 019 [email or web address] [id number] In [facility], [address], [place], [address], 3 12:11:57 clobetas ol 0.05 % topical cream [id number] 019 [facility], [address] [facility], [place], [address], 12:11:57 Patient TargetsNo targets recorded. Patient Instructions Encounter Date Encounter Id Patient Instructions Last Modified By Organization Details Last Modified Time 09/10/2020 [id number] mammogram: about this test [email or web address] Not available 09/10/2020 17:58:21 mammogram screening patient instructions [email or web address] Not available 09/10/2020 17:58:21 02/03/2023 [id number] PAMELA Soto Discussed with TITA [email or web address] Not available 02/12/2023 08:37:20 08/09/2023 [id number] On the date of this encounter, I was immediately available to assist the resident/fellow in the care of the patient, and have reviewed and agree with the resident s findings and plan of care. ~MD Greg [email or web address] Not available 08/09/2023 13:14:32 Reason for Referral Genetic Counselor Referral f or Family history of malignant neoplasm of breast in first degree relative Referring Physician: Claudia Garvin, Electronic Warfare Operator, Encounter Date: 11/13/2021 Results Created Date Observation Date Name Description Value Unit Range Abnormal Flag Note LastModifiedBy Organization Detail LastModifiedTime 12/25/19 23 12/23/2022 MAMMO , scree john, bilat eral No observ ation record ed. [facility] [place], [address], 02/20/2023 19:13:17 Result Notes None recorded. Problems Name Problem SNOMED Code Status Onset Date Resolution Date Notes Provider Name and Address Organization Details Recorded Time Atrophy of vagina 110974150 Active 2018 CATHY Hope SIBRIAN 9 16:32:47 Body mass index 30+ - obesity 452394059 Active 2023 Kathy Mcmullen MD Attn: Paolo g,[address] [facility], [place], [address], [place] - [facility] 4 09:58:40 Vaginal dryness 56748072 Active 2023 Kathy Mcmullen MD Attn: Paolo graham,[address] [facility], [place], [address], [place] [facility] 4 09:58:42 Atrophic vaginitis 72337617 Active 2023 Kathy Mcmullen MD Attn: Paolo graham,[address] [facility], [place], [address], [place] - [facility] 4 09:58:48 Pain of breast 96549953 Active Tremayne Ivon null, [place] - [facility] 5 17:54:43 Dyspareunia 85130276 Active Tremayne Ivon null, [place] - [facility] 5 17:54:43 Candidiasis of vagina 74419927 Active Tremayne Ivon null, [place] - [facility] 5 14:50:16 Breast lump 17448207 Active Eneida Fishman LPN null, [place] - [facility] 5 09:24:51 Menopausal syndrome 129409215 Active Tremayne Ivon null, [place] - [facility] 6 12:11:16 Mammography abnormal 031530480 Active Tremayne Ivon null, [place] - [facility] 5 14:08:07 Problem Notes None recorded. Procedures Surgical History Date Name Laterality Status Provider Name and Address Organization Details Recorded Time 12/24/19 23 Date of Last Mammogram completed ZORAIDA Estrada - [place] 02/02/2023 16:42:11 08/03/19 19 Most Recent Mammogram completed ZORAIDA Estrada - [facility] 01/18/2019 16:23:02 10/07/19 12 Date of Last Pap Smear completed ZORAIDA Catalan - [place] 08/02/2014 12:59:11 02/15/19 12 Other completed ZORAIDA Catalan - [place] 08/02/2014 12:59:10 02/15/19 10 Other completed ZORAIDA Catalan - [place] 08/02/2014 12:59:10 02/15/19 07 Orthopedic Surgery completed Grace Graff [place] - [place] 08/02/2014 12:59:10 02/15/19 06 Orthopedic Surgery completed Grace Graff [place] - [place] 08/02/2014 12:59:10 02/15/19 05 Total hysterectomy completed HARMONY LARA Attn: Accounting,[address] [facility], [place], [address], [facility] - SI 10/28/2022 10:59:16 02/15/18 97 Orthopedic Surgery completed Grace Graff [place] - [place] 08/02/2014 12:59:10 02/15/18 94 Tubal Ligation completed Grace Graff [place] - [place] 08/02/2014 12:59:10 Imaging Results Imaging Date Name Status LastModified by Organiz ation Details LastModified Time 12/23/2022 MAMMO, screening, bilateral completed [facility] [place], [address], 02/20/2023 19:13:17 Procedure Notes None recorded. Medical Equipment None Reported. Allergies Allergen ID Allergen Name Allergen Category Reaction Reaction Severity Criticality Documentation Date Start Date Code Code System Note Provider Name and Address Organization Details Recorded Time 459682 morphine medicatio n itching severe Not available 01/18/2019 7052 RxNorm Katerin Solorio MA null, [place] - [place] 9 16:25:44 Medications Name Sig Start Date Stop Date Status Note LastModified by Organization Details LastModified Time Prescriptio n - Clarificati on 01/18 completed Not Available Not Available Not Available multivitami n tablet Take 1 tablet every day by oral route. 09/10 completed Not Available Not Available Not Available losartan 50 mg tablet TAKE 1 TABLET BY MOUTH EVERY DAY AT NIGHT 08/08 completed Not Available Not Available Not Available amoxicillin 500 mg capsule 11/13 completed Not Available Not Available Not Available terconazole 0.4 % vaginal cream APPLY TO EXTERNAL VAGINAL AREA ONCE DAILY 08/08 completed Not Available Not Available Not Available prednisone 10 mg tablet PLEASE SEE ATTACHED FOR DETAILED DIRECTION S 08/08 completed Not Available Not Available Not Available doxycycline hyclate 100 mg capsule TAKE 1 CAPSULE BY MOUTH TWICE A DAY X 6 WEEKS 02/03 completed Not Available Not Available Not Available atorvastati n 20 mg tablet TAKE 1 TABLET BY MOUTH EVERY DAY active Not Available Not Available No t Available trazodone 50 mg tablet TAKE 1 TABLET BY MOUTH EVERY DAY AT NIGHT active Not Available Not Available No t Available azithromyci n 250 mg tablet TAKE 2 TABLETS BY MOUTH TODAY, THEN TAKE 1 TABLET DAILY FOR 4 DAYS DIRECTED 08/08 completed Not Available Not Available Not Available tizanidine 4 mg tablet TAKE 1 TABLET BY MOUTH EVERY DAY NIGHTLY active Not Available Not Available No t Available fluconazole 150 mg tablet TAKE 1 TABLET BY MOUTH EVERY DAY 02/03 completed Not Available Not Available Not Available benzonatate 200 mg capsule TAKE 1 CAPSULE BY MOUTH THREE TIMES A DAY 08/08 completed Not Available Not Available Not Available metronidazo le 0.75 % (37.5 mg/5 gram) vaginal gel Insert 1 applicato rful vaginally every night at bedtime for 5 days active Not Available Not Available No t Available doxycycline hyclate 50 mg capsule TAKE 1 CAPSULE TWICE A DAY X 1 MONTH, THEN 50 MG DAILY X 1 MONTH, THEN STOP. 02/03 completed Not Available Not Available Not Available fluorouraci l 5 % topical cream APPLY TO AFFECTED AREA TWICE DAILY FOR 2 WEEKS 02/03 completed Not Available Not Available Not Available terconazole 0.8 % vaginal cream Insert 1 applicato rful every day by vaginal route for 3 days. 01/18 completed Not Available Not Available Not Available clobetasol 0.05 % topical cream APPLY TOPICALLY TO THE AFFECTED AREA TWICE DAILY active Not Available Not Available No t Available penicillin V potassium 500 mg tablet 01/18 completed Not Available Not Available Not Available metronidazo le 500 mg tablet TAKE 1 TABLET BY MOUTH EVERY 8 HOURS 02/03 completed Not Available Not Available Not Available tretinoin 0.05 % topical cream APPLY TO SERNA EVERY EVENING 02/03 completed Not Available Not Available Not Available ketorolac 10 mg tablet TAKE 1 TABLET BY MOUTH EVERY 6 HOURS NEEDED FOR MODERATE PAIN UP TO 5 DAYS active Not Available Not Available No t Available oxycodone-a cetaminophe n 5 mg-325 mg tablet 01/18 completed Not Available Not Available Not Available prednisolon e acetate 1 % eye drops,suspe nsion PLEASE SEE ATTACHED FOR DETAILED DIRECTION S active Not Available Not Available No t Available estradiol 1 mg tablet TAKE ONE TABLET BY MOUTH ONCE DAILY 01/18 completed Not Available Not Available Not Available hydrocodone 7.5 mg-acetamin ophen 325 mg tablet TAKE ONE TABLET BY MOUTH FOUR TIMES A DAY active Not Available Not Available No t Available pantoprazol e 40 mg tablet,narcisa yed release TAKE 1 TABLET BY MOUTH EVERY DAY active Not Available Not Available No t Available triamcinolo ne acetonide 0.1 % topical ointment 01/18 completed Not Available Not Available Not Available nystatin 100,000 unit/gram topical cream APPLY TO THE AFFECTED AREA(S) BY TOPICAL ROUTE 2 TIMES PER DAY 09/10 completed Not Available Not Available Not Available ranitidine 150 mg tablet 09/10 completed Not Available Not Available Not Available lidocaine 5 % topical patch active Not Available Not Available Not Available losartan 25 mg tablet TAKE 1 TABLET BY MOUTH EVERY DAY AT NIGHT 02/03 completed Not Available Not Available Not Available hydrochloro thiazide 12.5 mg capsule TAKE 1 CAPSULE BY MOUTH ONCE A DAY active Not Available Not Available No t Available estradiol 2 mg tablet active Not Available Not Available No t Available diclofenac sodium 75 mg tablet,narcisa yed release 01/18 completed Not Available Not Available Not Available hydrocortis one 2.5 % topical cream PLEASE SEE ATTACHED FOR DETAILED DIRECTION S active Not Available Not Available No t Available Replens vaginal gel Insert 1 g by vaginal route. 2023 active Not Available Not Available Not Avai lable lorazepam 1 mg tablet TAKE 1 TABLET BY MOUTH EVERYDAY AT BEDTIME active Not Available Not Available No t Available levofloxaci n 500 mg tablet 01/18 completed Not Available Not Available Not Available oxycodone-a cetaminophe n 7.5 mg-325 mg tablet 01/18 completed Not Available Not Available Not Available estradiol 0.01% (0.1 mg/gram) vaginal cream INSERT 3G VAGINALLY EVERY DAY FOR 2 WEEKS, THEN INSERT THREE TIMES WEEKLY active Not Available Not Available No t Available methylpredn isolone 4 mg tablets in a dose pack TAKE 6 TABLETS ON DAY 1 DIRECTED ON PACKAGE AND DECREASE BY 1 TAB EACH DAY FOR A TOTAL OF 6 DAYS 08/08 completed Not Available Not Available Not Available albuterol sulfate HFA 90 mcg/actuati on aerosol inhaler INHALE 2 PUFFS EVERY 4 HOURS BY INHALATIO N ROUTE. active prn Not Available Not Available No t Available timolol maleate 0.5 % eye drops INSTILL 1 DROP INTO AFFECTED EYE EVERY DAY AT BEDTIME 02/03 completed Not Available Not Available Not Available losartan 100 mg tablet TAKE 1 TABLET BY MOUTH ONCE A DAY active Not Available Not Available No t Available vitamin E 268 mg (400 unit) capsule Take 1 capsule twice a day by oral route. 01/18 completed Not Available Not Available Not Available amoxicillin 875 mg-potassiu m clavulanate 125 mg tablet TAKE 1 TABLET BY MOUTH EVERY 12 HOURS 02/03 completed Not Available Not Available Not Available neomycin 3.5 mg/g-polymy aaron B 10,000 unit/g-dexa meth 0.1 % eye oint APPLY TO AFFECTED EYE THREE TIMES DAILY AND EVERY NIGHT AT BEDTIME 09/10 completed Not Available Not Available Not Available Evening [facility] [place] 500 mg capsule Take 1 capsule every day by oral route at bedtime. 01/18 completed Not Available Not Available Not Available olmesartan 20 mg tablet TAKE ONE HALF TABLET BY MOUTH EVERY DAY 09/10 completed Not Available Not Available Not Available Premarin 0.625 mg/gram vaginal cream Insert 0.5 g twice a week by vaginal route. 09/10 completed Not Available Not Available Not Available Premarin 1.25 mg tablet Take 1 tablet by oral route for 90 days. 2023 active Not Available Not Available Not Avai lable epinastine 0.05 % eye drops 01/18 completed Not Available Not Available Not Available duloxetine 30 mg capsule,del ayed release TAKE 1 CAPSULE BY MOUTH EVERY DAY active Not Available Not Available No t Available pregabalin 75 mg capsule TAKE 1 CAPSULE BY MOUTH THREE TIMES A DAY active Not Available Not Available No t Available Combigan 0.2 %-0.5 % eye drops 01/18 completed Not Available Not Available Not Available Calcium with Vitamin D 600 mg-10 mcg (400 unit) tablet Take 1 tablet twice a day by oral route. 09/10 completed Not Available Not Available Not Available GaviLyte-N 420 gram oral solution 09/10 completed Not Available Not Available Not Available estradiol 10 mcg vaginal tablet active Not Available Not Available Not Available Imvexxy Starter Pack 4 mcg vaginal insert, dose pack 2023 active Not Available Not Available Not Avai lable Paxlovid 300 mg (150 mg x 2)-100 mg tablets in a dose pack TAKE 2 OF 150 MG TABLETS AND 1 OF 100 MG TABLETS TWICE DAILY FOR 5 DAYS. HOLD ATORVASTA TIN WHILE ON 02/03 completed Not Available Not Available Not Available COVID-19 At-Home Test kit FOLLOW INSTRUCTI ONS INCLUDED WITH THE PACKAGE. 02/03 completed Not Available Not Available Not Available Vitals Date Recorded Body weight Body mass index (BMI) Body height Systolic blood pressure Diastolic blood pressure Provider Name and Address Organization Details Last Updated DateTime 01/18/2019 02820.74 g 31 kg/m2 167.64 cm 132 mm[Hg] 98 mm[Hg] Katerin Solorio MA [facility] 9 16:31:35 Date Recorded Body height Body mass index (BMI) Body weight Provider Name and Address Organization Details Last Updated DateTime 09/10/2020 167.64 cm 31 kg/m2 84083.74 g Lidia Rice MA [facility] 09/10/2020 14:01:11 Date Recorded Body height Body mass index (BMI) Body weight Systolic blood pressure Diastolic blood pressure Provider Name and Address Organization Details Last Updated DateTime 11/13/2021 167.64 cm 30.2 kg/m2 52738.77 g 118 mm[Hg] 86 mm[Hg] Katerin Solorio MA [facility] 2 12:07:22 Date Recorded Body weight Body mass index (BMI) Body height Systolic blood pressure Diastolic blood pressure Provider Name and Address Organization Details Last Updated DateTime 02/03/2023 38567.92 g 30.4 kg/m2 170.18 cm 142 mm[Hg] 96 mm[Hg] Katerin Solorio MA [facility] 3 12:15:53 Date Recorded Body height Body mass index (BMI) Body weight Respiratory rate Oxygen saturation Oxygen saturation in Arterial blood by Pulse oximetry Heart rate Systolic blood pressure Diastolic blood pressure Provider Name and Address Organization Details Last Updated DateTime 4 170.18 cm 30.7 kg/m2 10420.4 6 g 18 /min 96 % 96 % 85 /min 136 mm[Hg] 98 mm[Hg] Ramon Alvarez MA [facility] 4 12:29:23 Social History Question Answer Notes LastModified by Organizat ion Details LastModified Time Tobacco Smoking Status Former Smoker Grace GraffZORAIDA [place], [place] - [place] 08/02/2014 12:59:10 Do You Have An Advance Directive? No Information not available 08/02/2014 What Is Your Level Of Alcohol Consumption? Occasional Information not available 08/02/2014 Is Blood Transfusion Acceptable In An Emergency? Yes Information not available 08/02/2014 What Is Your Level Of Caffeine Consumption? Occasional Information not available 08/02/2014 How Much Tobacco Do You Chew? None Information not available 08/02/2014 In The 14 Days Before Symptom Onset, Have You Had Close Contact With A Laboratory-confir med COVID-19 While That Case Was Ill? No Information not available 08/09/2023 In The 14 Days Before Symptom Onset, Have You Had Close Contact With A Person Who Is Under Investigation For COVID-19 While That Person Was Ill? No Information not available 08/09/2023 Have You Been To An Area Known To Be High Risk For COVID-19? No Information not available 08/09/2023 Are You Currently Employed? No Information not available 08/02/2014 What Type Of Diet Are You Following? REGULAR Information not available 08/02/2014 Which Illicit Or Recreational Drugs Have You Used? None Information not available 08/02/2014 Education 4 Year College Informatio n not available 08/02/2014 What Is Your Occupation? None Information not available 08/02/2014 Live Alone Or With Others? With Others Information not available 08/02/2014 What Was The Date Of Your Most Recent Tobacco Screening? 08/09/2023 Information not available 08/09/2023 How Many Children Do You Have? 2 Information not available 08/02/2014 Performs Monthly Self-breast Exam? Yes Information no t available 08/02/2014 Do You Use Protection During Sex? No Information not available 08/02/2014 What Is Your Relationship Status? Information not available 08/02/2014 Do You Use Your Seat Belt Or Car Seat Routinely? Yes Information not available 08/09/2023 Seat Belts Used Routinely Yes Information not available 08/02/2014 Are You Sexually Active? Yes Information not available 08/02/2014 Do You Have Smoke And Carbon Monoxide Detectors In Your Home? Yes Information not available 11/13/2021 At What Age Did You Start Smoking Tobacco? 20 Information not available 08/02/2014 Are You Passively Exposed To Smoke? Yes Information no t available 11/13/2021 How Much Tobacco Do You Smoke? 1 PPW Information not available 08/02/2014 General Stress Level Low Information not available 08/02/2014 Do You Use Any Illicit Or Recreational Drugs? No Information not available 11/13/2021 Do You Use Sunscreen Routinely? Yes Information not available 08/02/2014 Has Tobacco Cessation Counseling Been Provided? Yes Information not available 02/03/2023 On What Date Was Tobacco Cessation Counseling Provided? 08/09/2023 Information not available 08/09/2023 How Many Years Have You Smoked Tobacco? 20 Information not available 08/02/2014 Do You Or Have You Ever Used Any Other Forms Of Tobacco Or Nicotine? No Information not available 11/13/2021 Sex: Unknown Functional Status Question Answer Note LastModified by Organizat ion Details LastModified Time What is your exercise level? Occasional Information not available 08/02/2014 Mental Status None recorded. Family History Relationship Description Onset Age of this Age Resolved Age Notes LastModified by Organization Details LastModified Time Paternal Grandfather Malignant neoplasm of lung [email or web address] Not available 08/02 23:46:44 Paternal Grandmother Diabetes mellitus [email or web address] Not available 08/02 23:46:44 Paternal Grandmother Cerebrovascu lar accident [email or web address] Not available 23:46:44 Paternal Grandmother Heart disease [email or web address] Not available 08/02 23:46:44 Father Heart disease 46 [email or web address] Not available 08/02 23:46:44 Father Pulmonary embolism 46 Not available 2016 12:17:43 Medical History Condition Response Heart Problems N Other N Breast Cancer N Kidney or Bladder Problems Y Thyroid Problems N Blood Clots N Depression N Lung Disease N GI Problems N Acne N Breast Problem N Eating Disorder N Anemia N Anesthesia Complications N Headaches/Migraines N Anxiety Disorder N Diabetes N Ovarian Cancer N Muscle, Joint, or Bone Problems Y Blood Transfusions N Arthritis N Polyps N Infertility N Acid Reflux (GERD) N Cancer N Stroke N Abuse/Domestic Violence N Asthma N Endometriosis N High Cholesterol N Hepatitis N Liver Disease Y Heart Disease N Fibromyalgia N Pre-Eclampsia N Hypertension N Osteoporosis N Kidney Disease N Gynecological History Statement/Question Response Abnormal Pap Y Date of Last Mammogram 12/23/2022 On BCP's at Conception? N STIs/STDs N HPV Vaccine N Most Recent Mammogram 08/02/2018 Age at Menarche 15 Current Control Method Hysterectom y Age at First Child 24 Sexually Active? Y Menses Monthly No Date of Last Pap Smear 10/07/2011 Sexual Problems? Y LMP Unknown Desired Control Method None Obstetrics History GPAL:G 2 P 2 0 0 2 Type Value Multiple Births 0 Full Term 2 Induced 0 Spontaneous 0 Premature 0 Living 2 Ectopics 0 Total 2 Past Encounters Encounter ID Performer Location Encounter Start Date Encounter Closed Date Diagnosis/Indication Diagnosis SNOMED-CT Code Diagnosis ICD10 Code Diagnosis Note [id number] [address] [place] [phone] 0 08/02/2014 11:59:49 08/02/2014 14:20:42 Pain of breast 37881889 Screening for malignant neoplasm of breast 841363586 Dyspareunia 61885570 [id number] [facility] [address] [place] [address] [phone] 0 03/25/2016 11:48:45 03/26/2016 12:59:13 Screening mammography 53050285 Z12.31 Atrophic vaginitis 70109 000 N95.2 Liver func tion tests outside reference range 652265857 R94.5 Menopausal syndrome 1237 67146 N95.9 stop premarin oral for 3 mo recheck lft [id number] MD Last Steinberg ([facility]) [address] [place] [address] [phone] 01/18/2019 15:54:46 01/18/2019 17:12:21 Menopausal syndrome 044293969 N95.9 stop premarin oral for 3 mo recheck lft Lichen scl erosus et atrophicus 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 L90.0 Atrophic vaginitis 34146 000 N95.2 [id number] MD Last Steinberg ([facility]CRE[facility]) [address] [place] [address] [phone] 09/10/2020 10:08:22 09/10/2020 21:25:33 Screening mammography 92832243 Z12.31 Menopausal syndrome 1237 01676 N95.9 unable to tolerate all other HRT products including estradiol 2mgbut only tolerates premarin needs HARMONY [id number] HARMONY LARA ([facility]) [address] [place] [address] [phone] 11/13/2021 11:49:22 11/17/2021 19:41:34 Gynecologic examination 27361411 Z01.419 Cervical cancer screening: Hysterecto my 2005Breast cancer screening: Mammogram 07/2021, normal. Discussed SBEColonos copy: UTDDiet/ex ercise: Counseled regarding importance of physical activity, healthy diet and appropriat e calcium intake. DEXA UTDRTC in 6 months Atrophic vaginitis 78930 000 N95.2 Advised pt to use estradiol topical vaginal cream to help w/ atrophyCou nseled on use of OTC vaginal moisturize rs and natural oils (coconut, crisco) as wellRTC in 6 mo to reassess symptoms Menopausal syndrome 1237 93661 N95.9 Hysterecto my with b/l salpingo-o opherectom y 2005Has been on oral Premarin to control menopause symptoms, tried to taper in the past but symptoms returnedWi ll continue Premarin at this time, discussed risks/bene fits Family his tory of malignant neoplasm of breast in first degree relative [id number] Z80.3 Pt states sister recently diagnosed with breast cancerRefe rral placed to genetic counseling Candidiasis of vagina [id number] B37.3 Pt w/ hx of recurrent yeast infections , given 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 doxy useCandidi asis seen on examFlucon azole prescribed prn [id number] HARMONY LARA (SCREW CUTTER) [address] [place] [address] [phone] 02/03/2023 11:46:30 02/17/2023 09:29:16 Menopausal syndrome [id number] N95.9 Hysterecto my with b/l salpingo-o opherectom y 2004Has been on oral Premarin to control menopause symptoms, tried to taper in the past but symptoms returnedWi ll continue Premarin at this time, discussed risks/bene fits Atrophic vaginitis 42620 000 N95.2 Continue estradiol topical vaginal cream to help w/ atrophyCou nseled on use of OTC vaginal moisturize rs and natural oils (coconut, crisco) as well Bacterial vaginosis 4197 67450 N76.0 Patient with recurrent BV.Metroni dazole gel rx given.Gyne cological hygeine discussed, patient educated. [id number] MD Last Perdomo (SCREW CUTTER) [address] [place] [address] [phone] 08/09/2023 12:06:56 08/09/2023 12:07:54 Body mass index 30+ - obesity [id number] Z68.30 Patient educated on healthy eating habits and exercise at least 30 mins per day. A diet comprised of four to five servings of fruit, four to five servings of vegetables , and two to three servings of low-fat dairy per day, with <25 percent of daily caloric intake from fat. Vaginal dryness 69964072 N89.8 - pt with h/o atrophic vaginitis, managed on estradiol vaginal cream. Discussed with patient about trying Replens vaginal gel. Gynecologi c examination [id number] Z01.419 Cervical cancer screening: Hysterecto my 2004Breast cancer screening: Mammogram 07/2021, normal. Discussed SBEColonos copy: UTDDiet/ex ercise: Counseled regarding importance of physical activity, healthy diet and appropriat e calcium intake. SERAFINA UTDRTC in 6 months Atrophic vaginitis 45070 000 N95.2 Advised pt to continue to use estradiol topical vaginal cream as directed to help w/ atrophyCou nseled on use of OTC vaginal moisturize rs and natural oils (coconut, crisco) as well- refil estradiol creamRTC in 6 mo to reassess symptoms Menopausal syndrome 1237 22131 N95.9 Hysterecto my with b/l salpingo-o opherectom y 2005Has been on oral Premarin to control menopause symptoms, tried to taper in the past but symptoms returnedWi ll continue Premarin at this time, discussed risks/bene fits Health Concerns Section Related Observation LastModified by Organization Detai ls LastModified Time None Recorded Concern Status LastModified by Organization Details LastModified Time None Recorded Advance Directives Directive N: Payers Encounter Date Sequence Insurance Name Policy Number Policy Hdez Covered Member ID Hdez Member ID Guarantor Name 01/18/2019 1 [facility] [id number] [email or web address] [id number] Angie Elder 09/10/2020 1 [facility] [id number] [employer] [id number] Angie Elder 09/10/2020 2 [place] Angie D Elder [id number] Angie Elder 11/13/2021 2 [place] Angie D Elder [id number] Angie Elder 11/13/2021 1 [facility] BENEFITS MANAGEMENT [id number] Angie Elder [id number] Angie Elder 02/03/2023 2 [place] Angie D Elder [id number] Angie Elder 02/03/2023 1 [employer] [facility] BENEFITS MANAGEMENT [id number] Angie Elder [id number] Angie Elder 08/09/2023 2 [place] Angie Elder [id number] Angie Elder 08/09/2023 1 [employer] BENEFITS MANAGEMENT [id number] Angie Elder [id number] Angie Elder Notes Date Note Type Note Provider Name and Address Organization Details Recorded Time 01/18/2019 text/html Vaginal DrynessReported bypatient.Location:vag negrita Quality:dry; pain with intercourse Severity:moderate; interferes with sexual activity Context:post menopause; s/p hysterectomy Modifying Factors:has not tried any medical intervention yet Associated Symptoms:no vaginal discharge; no vaginal atrophy; no bleeding after intercourse; no hot flashes; no urinary frequency; no feelings of urgency;painful intercourse 53yo wf s/p hyst worried about LSET cracking and fissures dyspareunia Tremayne Del Valle ani [facility] 01/18/2019 18:15:26 09/10/2020 text/html 55yo with h istory of tubal ligation and hysterectomy who presents via phone for medication follow-up. 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 H/o VENKAT/BSO at age 39. Pt currently on oral Premarin, has been for years after surgical induced menopause. States it has helped w/ a majority of her menopausal sxs. Has tried weaning off Premarin twice, states her sxs return. Currently reports vaginal dryness and dyspareunia. Says she is consistently tearing and is extremely dry. Has previously tried Premarin cream, was mildly effective. Pt has been on oral doxycycline for months for her autoimmune disorders. Has caused multiple yeast infections. Last dose of Fluconazole taken 1 month ago.-Onset yesterday, pt developed vaginal burning and itching. Pt states her last mammo was completed 07/2021. Sister has breast cancer. HARMONY LARA Attn: Accounting,[address] [place], [phone], [facility] 11/24/2021 12:48:31 02/03/2023 text/html MenopauseReporte d bypatient.Onset/Timing :>10 years Context:current hormone use: Alleviating Factors:traditional HRT Associated Symptoms:no pelvic pain; no abnormal bleeding; no dysuria; no changes in bowel function; no fever; no irritability; no skin changes; no changes in urination;dispareunia; vaginal dryness;depression;anx ielinden Adams is a 57 y/o F with a hx of a hysterectomy here for menopause f/u. She needs refills on her premarin and estradiol cream. She denies abnormal bleeding or discharge. She reports she tears almost weekly. She also reports BV anytime she has sex. She denies any other concerns.Mammogram UTD (Dec 2022) HARMONY LARA Attn: Accounting, [place], [address], [facility] 02/12/2023 08:39:50 08/09/2023 text/html MenopauseReporte d bypatient.Onset/Timing :>10 years Context:current hormone use: Alleviating Factors:traditional HRT Aggravating Factors:poor sleep; heat Associated Symptoms:no pelvic pain; no abnormal bleeding; no dysuria; no changes in bowel function; no fever; no irritability; no changes in urination;dispareunia; vaginal dryness;skin changes Angie is a 57 y/o F with a hx of a hysterectomy here for menopause f/u. She denies abnormal bleeding or discharge. She reports she tears almost weekly. She also reports BV anytime she has sex.She underwent hysterectomy at 38 years old due to endometriosis. Since then she has been managed on premarin 1.25 mg. She reports the medication do not help with vaginal dryness. She is also using the estradiol 0.01% vaginal cream. She needs refills on her premarin and estradiol cream. Mammogram UTD (Dec 2022) Kathy Mcmullen MD Attn: Accounting, [address] [place], [address], [facility] 08/20/2023 09:59:29 OBGyn Episode Ob Episode Information Episode Created Date Number of Fetuses Patient Bloodtype Patient rh Status Prepregnancy Weight lbs Domestic Partner Domestic Partner Phone Father Name Chemical Treatment Plant Technician Status 03/25/19 17 1 CLOSED Fetus Data First Name Last Name Admitted to NICU Weight (g) Sex Living Outcome Pediatric Complications Fetus ID Race Codes Race Delivery Type 3231.84 3 F Full Term [id number] Vaginal Noe Calculation Initial Noe Date Initial Exam Date Initial Exam Provider Initial Ultrasound Date Last Menstrual Period Date Ultra Sound Weeks Gestation 0 Eighteen To Twenty Week Noe Update Ultra Sound Date Fundal Height At Umbil Quickening Date Ultra Sound Latest Weeks Gestation Final Noe Confirmed By Final Noe Confirmed Date Final Noe Date Ultra Sound Latest Days Gestation 0 0 Menstrual History Last Menstrual Date Menses Monthly On Bcp Conception Prior Menses Frequency Hcg Plus Date Menarche Onset Age Delivery Information Delivery Date Delivery Type Labor Anesthesia Weeks Gestation Incision Type Labor Labor Length Hrs Delivered By Post Complications Tubal Sterilization Discharge Date Comments 0 None 40.3 false 28 [facility] Discharge Information Feeding Method Contraceptive Method Maternal HG B and HCT Levels Ob Episode Information Episode Created Date Number of Fetuses Patient Bloodtype Patient rh Status Prepregnancy Weight lbs Domestic Partner Domestic Partner Phone Father Name Chemical Treatment Plant Technician Status 03/25/19 17 1 CLOSED Fetus Data First Name Last Name Admitted to NICU Weight (g) Sex Living Outcome Pediatric Complications Fetus ID Race Codes Race Delivery Type 2721.55 2 F Full Term [id number] Noe Calculation Initial Noe Date Initial Exam Date Initial Exam Provider Initial Ultrasound Date Last Menstrual Period Date Ultra Sound Weeks Gestation 0 Eighteen To Twenty Week Noe Update Ultra Sound Date Fundal Height At Umbil Quickening Date Ultra Sound Latest Weeks Gestation Final Noe Confirmed By Final Noe Confirmed Date Final Noe Date Ultra Sound Latest Days Gestation 0 0 Menstrual History Last Menstrual Date Menses Monthly On Bcp Conception Prior Menses Frequency Hcg Plus Date Menarche Onset Age Delivery Information Delivery Date Delivery Type Labor Anesthesia Weeks Gestation Incision Type Labor Labor Length Hrs Delivered By Post Complications Tubal Sterilization Discharge Date Comments 4 Regional-Ep idural [address],[place], [place] Discharge Information Feeding Method Contraceptive Method Maternal HG B and HCT Levels
--- OUTSIDE RECORDS SUMMARY | 2024-06-21 08:34 | XMS_ITS | Encounter Summary ---
Author Organization [facility] Address [address] [place] [address] Care Team Providers Care Microsoft Exchange Architect Name Role Phone Tyson Talbert MD Primary Care Provider Encounter Details Date Type Department Care Team (Late st Contact Info) Description 03/02/[address] [facility] [place] [address] Nash Butler MD [address] [facility] [address] Social History Tobacco Use Types Packs/Day Years Used Date Smoking Tobacco: Never Assessed Comments Unknown Sex and Gender Information Value Date Recorded Sex Assigned at Not on file Legal Sex Female 8:27 PM CDT Gender Identity Female 02/27/2021 1:39 PM FOOD AND BEVERAGE ATTENDANT Sexual Orientation Straight 02/27/2021 1: 39 PM FOOD AND BEVERAGE ATTENDANT COVID-19 Exposure Response Date Recorded In the last month, have you been in contact with someone who was confirmed or suspected to have Coronavirus / COVID-19? No / Unsure 03/03/2021 11:48 AM FOOD AND BEVERAGE ATTENDANT documented as of this encounter H&P Notes * Nash Butler MD - 03/02/2021 11:27 AM CST Attending Provider: No att. providers found PCP: No primary care provider on file. Angie Elder is an 56-year-old female. Reason for Admission: outpatient surgery HPI: InterStim placed in 2011. Battery is at EOS. Wants MRI compatable device No past medical history on file. HTN HPL Allergies: Not on File morphine Social History Tobacco Use ??? Smoking status: Not on file Substance Use Topics ??? Alcohol use: Not on file No past surgical history on file. Orthopedic Back Hyst neurostimulator No family history on file. Travel Exposure: No current outpatient medications on file prior to visit. No current facility-administered medications on file prior to visit. There were no vitals taken for this visit. ROS neg Physical Exam NAD Normal breathing Assessment: Retention of urine Plan: Remove and replace neurostimulator NASH BUTLER MD 03/02/2021 AND BEVERAGE ATTENDANT documented in this encounter Plan of Treatment Not on file documented as of this encounter Visit Diagnoses Not on filedocumented in this encounter Care Teams Microsoft Exchange Architect Relationship Specialty Start Date End Date Tyson Talbert MD [address] [phone] PCP - General INTERNAL MEDICINE 03/03/21 documented as of this encounter
--- OUTSIDE RECORDS SUMMARY | 2024-06-21 08:34 | XMS_ITS | Clinical Summary ---
Author Organization [facility] [employer] Address [address] [place] [address] Care Team Providers Care Silo Painter Name Role Phone Tyson Talbert MD Primary Care Provider [phone] Source Comments [facility] hospital Affiliates and Associated Physician Practices is amultiple site organization consisting of ambulatory clinics and hospital sitesin [place], [place], [place] and [place]. This disclosure is being madepursuant to the Care Everywhere program and may not contain all information available regarding this patient. Last updated 17.[facility] [employer] Allergies Active Allergy Reactions Criticality Noted Date Comments Morphine Itching Low 08/24/2016 Medications * Be aware that medications may not be up to date on this document. Alwaysverify current medications with the patient. traZODone (DESYREL) 50 MG tablet Take 50 mg by mouth at bedtime Active tiZANidine (ZANAFLEX) 4 MG tablet Take 4 mg by mouth at bedtime Active TIMOLOL 0.5%-LATANOPROS T 0.005% PF EYE DROPS (COMPOUNDED) Instill 1 drop into both eyes once daily Active estrogens, conjugated, (PREMARIN) 1.25 MG tablet Take 1.25 mg by mouth once daily Active HYDROcodone-janet taminophen (NORCO) 7.5-325 MG tablet Take 1 tablet by mouth every 6 hours as needed for Pain Active pregabalin (LYRICA) 75 MG capsule Take 75 mg by mouth once daily Active LORazepam (ATIVAN) 0.5 MG tablet Take 0.5 mg by mouth nightly as needed for Anxiety Active Lido-Capsaicin- Men-Methyl Jalen (FRMK-JMIEQ-PWA OCAINE EX) by Apply externally route once daily Active pantoprazole EC (PROTONIX) 40 MG tablet Take 40 mg by mouth once daily 0 Active Active Problems Problem Noted Date Diagnosed Date Gastroesophageal reflux disease 09/09/2018 Herniation of nucleus pulposus 09/09/2018 NAFLD (nonalcoholic fatty liver disease) 018 Overview (09/04/2019): 09/16/17 Fibroscan CAP 298, LSM 7.1 kPa mcm 09/04/19 Fibroscan CAP 313, LSM 6.3 kPa dwp Bladder dysfunction 08/24/2016 Overview (09/04/2017): Overview: Has bladder stimulator. Chronic back pain 08/24/2016 Overview (09/04/2017): Overview: Herniated disc L4/5 s/p fusions x 2. Pain radiates to legs. Chronic constipation 08/24/2016 Overview (09/04/2017): Overview: Likely related to opiates. Glaucoma 08/24/2016 Granuloma annulare 08/24/2016 Overview (09/04/2017): Overview: In remission after chemotherapy Obesity 08/24/2016 KATARZYNA (obstructive sleep apnea) 08/24/2016 Overview (09/04/2017): Overview: On CPAP since early 2016. Social History Tobacco Use Types Packs/Day Years Used Date Smoking Tobacco: Former Cigarettes Smokeless Tobacco: Never Comments:quit 2004 Alcohol Use Standard Drinks/Week Comments Yes 0 (1 standard drink = 0.6 oz pure alcohol) glass of wine on holidays and special occasions Comments Unknown Sex and Gender Information Value Date Recorded Sex Assigned at Not on file Legal Sex Female 5:24 AM TOURS CAPTAIN Gender Identity Not on file Sexual Orientation Not on file Last Filed Vital Signs Vital Sign Reading Time Taken Comments Blood Pressure 137/86 09/04/2019 11:30 AM CDT Pulse 86 09/04/2019 11:30 AM CDT Temperature 36.8 C (98.2 F) 09/12/2018 3:08 PM CDT Respiratory Rate 20 09/04/2019 11:30 AM CDT Oxygen Saturation 99% 09/04/2019 11:30 AM CDT Inhaled Oxygen Concentration - - Weight 87.1 kg (192 lb 1.6 oz) 09/04/2019 11:30 AM CDT Height 167.6 cm (5' 5.98 ) 09/04/2019 11:30 AM C DT Body Mass Index 31.02 09/04/2019 11:30 AM CDT Plan of Treatment Health Maintenance Due Date Last Done Comments COLOGUARD (AGES 45-75) - COLON CA SCREENING 1967 COLON MONITORING 1967 COLONOSCOPY - COLON CA SCREENING 1967 CT COLONOGRAPHY - COLON CA SCREENING 1967 Colorectal Cancer Screening 1967 FIT - COLON CA SCREENING 1967 FLEX SIG - COLON CA SCREENING 1967 LIPID TESTING 1967 MAMMOGRAM 1967 MEDICARE AWV 12 MONTHS 1967 PAP SMEAR 1967 HIV SCREENING 1982 HEPATITIS C SCREENING 02/10/1985 DTAP/TDAP/TD VACCINES (1 - Tdap) 1986 HEPATITIS B VACCINE (1 of 3 - 19+ 3-dose series) 1986 PNEUMOCOCCAL VACCINE 50+ (1 of 1 - PCV) 2017 ZOSTER VACCINE (1 of 2) 2017 SCREENING FOR DIABETES 08/29/2022 , 09/09/2018, 09/02/2017, Additional history exists COVID-19 VACCINE ( - season) 2023 DEPRESSION SCREENING 02/16/2024 INFLUENZA VACCINE (Season Ended) 2024 12/20/2018, 01/10/2018, 02/28/2015, Additional history exists HIB VACCINE Aged Out No longer eligi ble based on patient's age to complete this topic HPV VACCINE Aged Out No longer eligi ble based on patient's age to complete this topic MENINGOCOCCAL (Group B) VACCINE SHARED DECISION-MAKING Aged Out No longer eligible based on patient's age to complete this topic MENINGOCOCCAL GROUPS A/C/Y/W VACCINE Aged Out No longer eligible based on patient's age to complete this topic Goals Goal Patient Goal Type Associated Problems Recent Progress Patient-Stated? Author Medication Management General On track( 020 11:41 AM CDT) Daniel Renae RN Note: Expected end date: 01/26/19 Interventions: Take all medications as prescribed Let your doctor know right away about any changes in your medications Make sure to request a refill of your medication at least one week prior to your last dose Procedures Procedure Name Priority Date/Time Associated Diagnosis Comments COMPREHENSIVE METABOLIC PANEL Routine 08/30/2019 2:50 PM CDT Elevated liver enzymes from Last 3 Months or Most Recently Relevant to Health Maintenance Results * COMPREHENSIVE METABOLIC PANEL (08/30/2019 2:50 PM CDT) Glucose 88 65 - 99 mg/dL [facility] INSURANCE BILL BUN 16 6 - 24 mg/dL [facility] INSURANCE BILL Creatinine 0.81 0.57 - 1.00 mg/dL [facility] INSURANCE BILL eGFR by MDRD 84 >59 mL/min/1.7 3 [facility] INSURANCE BILL eGFR by MDRD 97 >59 mL/min/1.7 3 [facility] INSURANCE BILL BUN/Creatinine Ratio 20 9 - 23 [facility] INSURANCE BILL Sodium 141 134 - 144 mmol/L [facility] INSURANCE BILL Potassium 4.3 3.5 - 5.2 mmol/L [facility] INSURANCE BILL Chloride 103 96 - 106 mmol/L [facility] INSURANCE BILL CO2 27 20 - 29 mmol/L [facility] INSURANCE BILL Calcium 9.1 8.7 - 10.2 mg/dL [facility] INSURANCE BILL Protein Total 6.9 6.0 - 8.5 g/dL [facility] INSURANCE BILL Albumin 4.1 3.8 - 4.9 g/dL [facility] INSURANCE BILL Globulin Total 2.8 1.5 - 4.5 g/dL [facility] INSURANCE BILL Albumin/Globulin Ratio 1.5 1.2 - 2.2 [facility] INSURANCE BILL Bilirubin Total <0.2 0.0 - 1.2 mg/dL [facility] INSURANCE BILL Alkaline Phosphatase 47 39 - 117 IU/L [facility] INSURANCE BILL AST 24 0 - 40 IU/L [facility] INSURANCE BILL ALT 28 0 - 32 IU/L [facility] INSURANCE BILL Blood BLOOD SPECIMEN / Unknown 08/30/2019 2:50 PM CDT 08/30/2019 Narrative Resulting Agency Comment [facility] [address] [facility] [phone] Gen Moralez MD LAB - CHEMISTRY OR DERABLES Final Result [facility] INSURANCE BILL [address] [place] [address] from Last 3 Months or Most Recently Relevant to Health Maintenance Insurance [facility] MEDICARE [facility] [place] [id number] MEDICARE [facility] MEDICARE [facility] CARE MEDICARE Member Subscriber Plan / Payer ( fective 2008-Present) Name:Mayda Elder Member ID:[id number] Relation to Subscriber:Self Name:MAYDA ELDER Subscriber ID:[id number] Payer ID:Not on file Group ID:Not on file Type:Medicare Address: [place] [id number] CARE Member Subscriber Plan / Payer ( fective 2016-Present) Name:Mayda Elder Relation to Subscriber:Spouse Name:DORA ELDER Subscriber ID:Not on file Date of :1962 Payer ID:[id number] (NAIC) Type:O Address: [place] [phone] MEDICARE Member Subscriber Plan / Payer ( fective 2008-Present) Name:Mayda Elder Member ID:[id number] Relation to Subscriber:Self Name:MAYDA ELDER Subscriber ID:[id number] Payer ID:Not on file Group ID:Not on file Type:Medicare Address: [place] [id number] [facility] CARE MEDICARE AET [facility] CARE MEDICARE [employer] MEDICARE AETNA MEDICARE AETNA MEDICARE TNA Care Teams Silo Painter Relationship Specialty Start Date End Date Tyson Talbert MD [address] [place] [phone] PCP - General 06/29/17
--- OUTSIDE RECORDS SUMMARY | 2024-06-21 08:34 | XMS_ITS | Clinical Summary ---
Author Organization [facility] Address [address] [place] [address] Care Team Providers Care Negative Spotter Name Role Phone Tyson Talbert MD Primary Care Provider [phone] Allergies Active Allergy Reactions Criticality Noted Date Comments Meperidine Itching 03/06/2021 Reaction: PRURITIS, Morphine Rash Low 03/03/2021 Tape Rash,Unknown Low 08/09/2014 Tegaderm cause itching and redness Ketorolac Tromethamine Itching 03/06/2021 Itching in head. Gave benadryl stop itching Medications estrogens, conjugated, (PREMARIN) 0.3 MG tablet Take 2.5 mg by mouth nightly. 5 Active HYDROcodone-janet taminophen (NORCO) 7.5-325 MG tablet Take 1 tablet by mouth 4 (four) times daily as needed. 6 Active losartan 25 MG tablet Take 1 tablet by mouth nightly. 1 Active pregabalin (LYRICA) 150 MG capsule Take 1 capsule by mouth nightly. 8 Active tiZANidine 4 MG tablet Take 1 tablet by mouth nightly. 8 Active TRAZODONE HCL ER OR Take 50 mg by mouth nightly. 8 Active pantoprazole EC 40 MG tablet Take 40 mg by mouth nightly. Active LORazepam 1 MG tablet Take 1 tablet by mouth nightly as needed. 1 Active lidocaine 5 % Apply 1 patch topically daily. Active ibuprofen 200 MG tablet Active TIMOLOL-DORZOLA MID-LATANOPROST OP Apply 1 drop to eye daily. Active HYDROcodone-janet taminophen 7.5-325 MG tabletIndicatio ns:Acute Pain < 7 Day Supply Take 1 tablet by mouth every 6 (six) hours as needed for Pain. Indications: Acute Pain < 7 Day Supply 20 tablet 2 Active Family History Medical History Relation Comments No Known Problems Brother Heart Father pulmonary emboli sm during surgery for heart Dementia Mother No Known Problems Sister Relation Status Comments Brother Alive Father (Age 46) Mother Alive Sister Alive Social History Tobacco Use Types Packs/Day Years Used Date Smoking Tobacco: Former Cigarettes Q uit: 03/03/2005 Smokeless Tobacco: Never Alcohol Use Standard Drinks/Week Comments Yes 0 (1 standard drink = 0.6 oz pur e alcohol) less than a drink per month Comments No Sex and Gender Information Value Date Recorded Sex Assigned at Not on file Legal Sex Female 8:27 PM CDT Gender Identity Female 02/27/2021 1:39 PM HEAD MACHINIST Sexual Orientation Straight 02/27/2021 1: 39 PM HEAD MACHINIST Last Filed Vital Signs Vital Sign Reading Time Taken Comments Blood Pressure 135/75 03/06/2021 10:44 AM HEAD MACHINIST Pulse 76 03/06/2021 10:44 AM HEAD MACHINIST Temperature 36.4 C (97.6 F) 03/06/2021 10:44 AM HEAD MACHINIST Respiratory Rate 15 03/06/2021 10:4 4 AM HEAD MACHINIST Oxygen Saturation 98% 03/06/2021 10: 44 AM HEAD MACHINIST Inhaled Oxygen Concentration - - Weight 88.3 kg (194 lb 10.7 oz) 03/06/2021 7:24 AM HEAD MACHINIST Height 152.4 cm (5') 03/06/2021 7:24 AM HEAD MACHINIST Body Mass Index 38.02 03/06/2021 7:24 AM HEAD MACHINIST Plan of Treatment Health Maintenance Due Date Last Done Comments Colorectal Cancer Screening Colonoscopy (10 Years) 1967 Annual Physical 1970 Hepatitis C 1985 DTaP, Tdap and Td Vaccines (1 - Tdap) 1986 Hepatitis B Vaccines (1 of 3 - 19+ 3-dose series) 1986 Mammogram Screening 2007 Pneumococcal Vaccine: 50+ Years (1 of 1 - PCV) 2017 Zoster Vaccines (2 of 2) 02/23/2020 12/29/2019 COVID-19 Vaccine ( season) 2023 02/11/2021, 05/16/2020, 05/08/2020, Additional history exists Meningococcal B Vaccine Aged Out No l onger eligible based on patient's age to complete this topic Meningococcal Vaccine Aged Out No samir akira eligible based on patient's age to complete this topic RSV Immunizations Under 20 Months Aged Out No longer eligible based on patient's age to complete this topic Medical Devices Implanted Type Area Mesmerist Device Identifier Shelf Expiration Date Model / Serial / Lot Interstim Ii Neurosteimulator Implanted:Qty: 1 on 03/06/2021 by Julio Matos MD at [facility] [place] Stimulator Implant N/A: Buttocks [employer] 10/12/2021 [id number] / [id number] / Insurance MEDICARE [facility] Advance Directives * Full Code (Latest Code Status on File) Date Activated Date Inactivated Comments 03/06/2021 9:33 AM 03/06/2021 12:56 PM Care Teams Negative Spotter Relationship Specialty Start Date End Date Tyson Talbert MD [address] [phone] PCP - General INTERNAL MEDICINE 03/03/21
--- OUTSIDE RECORDS SUMMARY | 2024-06-21 08:34 | XMS_ITS | Encounter Summary ---
Author Organization [facility] Address [address] [place] [address] Care Team Providers Care Master Rigger Name Role Phone Tyson Talbert MD Primary Care Provider Reason for Visit * Diagnostic Imaging (Routine) - Closed Specialty Diagnoses / Procedures Referred By Contac t Referred To Contact Diagnoses Screening mammogram, encounter for Procedures Breast Imaging Screening Outside Reference Referral, Self Referral ID Status Reason Start Date Expiration Date Visits Re quested Visits Authorized [id number] Closed 08/05/2021 09/04/2022 1 1 Encounter Details Date Type Department Care Team (Late st Contact Info) Description 08/02/2018 Hospital Encounter [facility] [address] [place] [id number] Social History Tobacco Use Types Packs/Day [...] making you feel afraid or unsafe? Denies 04/13/2024 Comments No Sex and Gender Information Value Date Recorded Sex Assigned at Not on file Legal Sex Female 2:19 PM AIR AND WATER FILLER Gender Identity Female 12/23/2022 11:06 AM AIR AND WATER FILLER Sexual Orientation Straight 12/23/2022 11 :06 AM AIR AND WATER FILLER documented as of this encounter Plan of [...] on stairs Contact your local community or [facility] for information on exercise, fall prevention [...] only and have not been reviewed by [facility]. There will be no report generated by a [facility] Radiologist. Narrative [facility] - 08/05/2021 11:09 AM CDT EXAMINATION: Images For Reference Purposes Only us Self Referral IMG MAMMO PROCEDURES Final Resul t [facility] documented in this encounter Visit Diagnoses Not on filedocumented in this encounter Care Teams Master Rigger Relationship Specialty Start Date End Date Tyson Talbert MD PCP - General 06/08/16 documented as of this encounter
--- OUTSIDE RECORDS SUMMARY | 2024-06-21 08:34 | XMS_ITS | Referral Summary ---
Author Organization [facility] Address [address] [place] [address] Care Team Providers Care Tourist Adviser Name Role Phone Tyson Talbert MD Primary Care Provider Encounters Date Type Department Care Team Description 04/13/2024 2:38 PM ORDER DETAILER - 04/13/2024 11:59 PM ORDER DETAILER Hospital Encounter [facility] [address] [place], [place] [id number] Cody Callahan MD Cervical radiculopathy (Primary Dx); Spasm of muscle; Neck pain Discharge Disposition: Discharge to home or self care from Last 3 Months Allergies Active Allergy Reactions Criticality Noted Date Comments Adhesive Rash Medium 08/09/2014 Tegaderm cause itching and redness Adhesive Tape-Silicones Unknown 08/09/2014 Ketorolac Tromethamine Itching Low 03/06/2021 Itching in head. Gave benadryl stop itching Meperidine Itching Low Reaction: PRURITIS, Morphine Itching,Rash High 08/24/2016 Propoxyphene-Acetaminop hen Other (See comments) Low Reaction: OTHER REACTION, Medications clobetasol (TEMOVATE) 0.05 % cream Apply sparingly to itchy area(s) twice a day as needed (do not use onface) 6 Active clobetasol (TEMOVATE) 0.05 % ointment APPLY INTO AFFECTED AREA(S) on chest and buttock twice a day for itching, stop when no longer itchy. Do not use on face or groin or axilla. 6 Active HYDROcodone-janet taminophen (NORCO) 7.5-325 mg per tabletIndicatio ns:Pain 0 8 Active polyethylene glycol (MIRALAX) 17 gram/dose powder daily. 9 Active triamcinolone (KENALOG) 0.1 % ointment triamcinolone acetonide 0.1 % topical ointment Active PREMARIN 1.25 mg tablet [address] (PROTONIX) 40 mg EC tablet Take 40 mg by mouth daily 0 Active timolol (TIMOPTIC) 0.5 % ophthalmic solution Administer 1 drop into both eyes every morning 2 Active prednisoLONE acetate (PRED FORTE) 1 % ophthalmic suspension PLEASE SEE ATTACHED FOR DETAILED DIRECTIONS 3 Active metroNIDAZOLE (FLAGYL) 500 mg tablet Take 1 tablet (500 mg total) by mouth every 8 (eight) hours [address] (CYMBALTA) 30 mg capsule Take by mouth daily 3 Active COVID-19 At-Home Test kit FOLLOW INSTRUCTIONS INCLUDED WITH THE PACKAGE. 3 Active losartan (COZAAR) 50 mg tablet Take 1 tablet (50 mg total) by mouth nightly 3 Active LORazepam (ATIVAN) 1 mg tablet TAKE 1 TABLET BY MOUTH EVERYDAY AT BEDTIME 30 tablet 4 Active tiZANidine (ZANAFLEX) 4 mg tabletIndicatio ns:Spasm of muscle TAKE 1 TABLET BY MOUTH EVERY DAY NIGHTLY 90 tablet 3 4 Active traZODone (DESYREL) 50 mg tabletIndicatio ns:Chronic lumbosacral pain TAKE 1 TABLET BY MOUTH EVERY DAY AT NIGHT 90 tablet 3 4 Active pregabalin (LYRICA) 75 mg capsuleIndicati ons:Chronic lumbosacral pain Take 1 capsule (75 mg total) by mouth 3 (three) times a day 270 capsule 5 Active lidocaine (LIDODERM) 5 % Apply 2 patches for 12 hours on and 12 hours off. 180 patch 5 Active Active Problems Problem Noted Date Diagnosed Date At high risk for open angle glaucoma of both eye s 12/23/2017 Assessment & Plan (05/14/2021 6:55 PM CDT): 6 month follow-up. IOP today in high-teens with stable HVF 24-2 and OCT OU H/o increased IOP with steroid injections Restarted timolol with intraocular pressure (IOP) upper teens to 21 Nl and stable RNFL both eyes (OU) today IOP 15 both eyes (OU) today, but does not require tx with thick CCT, OHTS risk calculator indicates 5-year risk of glaucoma at 3.7% Discussed at length with pt- Gonioscopy reveals very lightly pigmented trabecular meshwork (TM), but not occludable angles, no peripheral anterior synechia (PAS) F/U with Dr. Rice as scheduled and here prn Assessment & Plan (01/31/2020 8:44 PM ORDER DETAILER): 6 month follow-up. IOP today in high-teens with stable HVF 24-2 and OCT OU H/o increased IOP with steroid injections Off timolol and IOP acceptable with sl thick CCT Gonioscopy reveals very lightly pigmented trabecular meshwork (TM), but not occludable angles, no peripheral anterior synechia (PAS) F/U with Dr. Rice as scheduled F/U here annually (per pt preference) with OCT Assessment & Plan (08/03/2019 5:33 PM CDT): H/o increased IOP with steroid injections Off timolol and IOP borderline OCT relatively stable, some mild thinning OD but still wnl thickness - Progression in green F/U 6-8 months with Beltran visual field (HVF) 24-2 Assessment & Plan (08/04/2018 8:38 PM CDT): intraocular pressure (IOP) acceptable, but noted elevation 1-2 months post- corticosteroid injection Discussed with pt as she has intractable pain without the injections I suggested trial of timolol q AM to begin 3 wks post injection and intraocular pressure (IOP) check 4-6 wks post injection Nl NFL F/U with Dr. 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 Rec trial off timolol and F/u with Dr. Rice in 1 month Observe if <20 with nl optic nerve (ON) and Beltran visual field (HVF) F/u here in 6 months, BAT, OCT, DFE Posterior subcapsular age-related cataract, both eyes 12/23/2017 Assessment & Plan (05/14/2021 6:55 PM CDT): Not VS- observe Assessment & Plan (01/31/2020 8:46 PM ORDER DETAILER): Not visually significant to pt at this time. Assessment & Plan (08/03/2019 5:32 PM CDT): Not visually significant to pt at this time- discussed future management Assessment & Plan (08/04/2018 8:39 PM CDT): Not visually significant to pt at this time. Assessment & Plan (12/23/2017 6:54 AM ORDER DETAILER): Not visually significant, observe. Social History Tobacco Use Types Packs/Day Years [...] on file Legal Sex Female 2:19 PM ORDER DETAILER Gender Identity Female 12/23/2022 11:06 AM ORDER DETAILER Sexual Orientation Straight 12/23/2022 11 :06 AM ORDER DETAILER Last Filed Vital Signs Vital Sign Reading Time Taken Comments Blood Pressure 168/96 04/13/2024 3:16 PM ORDER DETAILER Pulse 80 04/13/2024 3:16 PM ORDER DETAILER Temperature 36.7 C (98 F) 08/21/2022 4:56 PM CDT Respiratory Rate 18 04/13/2024 3:16 PM ORDER DETAILER Oxygen Saturation 96% 04/13/2024 3:16 PM ORDER DETAILER Inhaled Oxygen Concentration - - Weight 83.9 kg (185 lb) 03/21/2024 9:05 AM ORDER DETAILER Height 167.6 cm (5' 6 ) 03/21/2024 9:05 AM ORDER DETAILER Body Mass Index 29.86 03/21/2024 9:05 AM ORDER DETAILER Plan of Treatment Not on file Goals Goal Patient Goal Type Associated Problems Recent Progress Patient-Stated? Author CCM Chronic Pain Care Plan Chronic Care Management Soraida Anderson RN Note: Problem: Chronic Pain Goals: 1. [...] on stairs Contact your local community or senior center for information on exercise, fall prevention programs, or options for improving home safety. Medical Devices Implanted Type Area Atv Mechanic Device Identifier Shelf Expiration Date Model / Serial / Lot Neurostimulator Neurostimulator Right: Bladder Description:Medtronic Spinal Cord Stimulator Spinal Cord Stimulator Lumbar-Sa cral Spine Description:[employer], Generator on left side Procedures Procedure Name Priority Date/Time Associated Diagnosis Comments IR EPIDURAL INJECTION CERVICAL W GUIDANCE Schedule Routine, Read Routine (OP Routine) 04/13/2024 3:15 PM ORDER DETAILER Spasm of muscle Neck pain SCREENING MAMMOGRAM BILATERAL W PATRICK Schedule Routine, Read Routine (OP Routine) 12/23/2022 2:10 PM ORDER DETAILER Screening mammogram, encounter for from Last 3 Months or Most Recently Relevant to Health Maintenance Results * IR Epidural Injection Cervical W Guidance (Interlaminar) (04/13/2024 3:15 PM ORDER DETAILER) Narrative [facility] - 04/13/2024 3:16 PM ORDER DETAILER The images from this study are not interpreted by Radiology. Please refer to the physician's procedure / OR operative note. Lori Aguila MD IMG IR PROCEDURES Final Re sult [facility] * Screening Mammogram Bilateral W Patrick (12/23/2022 2:10 PM ORDER DETAILER) Anatomical Region Laterality Modality Breast Bilateral Mammography Narrative 12/24/2022 3:33 PM ORDER DETAILER Mammogram Technique: Bilateral Digital Breast Tomosynthesis, Bilateral C-view 2D Screening mammogram. Views obtained: bilateral craniocaudal and bilateral mediolateral oblique. Computer Aided Detection was performed. Mammogram Findings: The present examination has been compared to prior imaging studies performed at [facility] on 08/02/2018, and at [facility] on 06/08/2016 and 08/01/2021. There are scattered areas of fibroglandular density. There is no suspicious abnormality in either breast. Impression: There is no mammographic evidence of malignancy. Annual screening mammography is recommended. OVERALL FINAL ASSESSMENT: BI-RADS CATEGORY 1: Negative. Procedure Note Roselyn Graves MD - 12/24/2022 Mammogram Technique: Bilateral Digital Breast Tomosynthesis, Bilateral C-view 2D Screening mammogram. Views obtained: bilateral craniocaudal and bilateral mediolateral oblique. Computer Aided Detection was performed. Mammogram Findings: The present examination has been compared to prior imaging studies performed at [facility] on 08/02/2018, andat [facility] on 06/08/2016 and 08/01/2021. There are scattered areas of fibroglandular density. There is no suspicious abnormality in either breast. Impression: There is no mammographic evidence of malignancy. Annual screening mammography is recommended. OVERALL FINAL ASSESSMENT: BI-RADS CATEGORY 1: Negative. us Self Screening Mammogram IMG MAMMO PROCEDURES Fi nal Result from Last 3 Months or Most Recently Relevant to Health Maintenance Insurance MEDICARE [place] [address] MEDICARE UHC CHOICE PLUS [facility] Address: [address] [place] [address] [place] [address] MEDICARE [place] [address] IDPA Care Teams Tourist Adviser Relationship Specialty Start Date End Date Tyson Talbert MD PCP - General 06/08/16
--- OUTSIDE RECORDS SUMMARY | 2024-06-21 08:35 | XMS_ITS | Clinical Summary ---
Author Organization [facility] Address [address] [place] [address] Care Team Providers Care Computer Laboratory Technician Name Role Phone Tyson Talbert MD Primary Care Provider Allergies Active Allergy Reactions Criticality Noted Date [...] prn Assessment & Plan (01/31/2020 8:44 PM CUTTER GAS): 6 month follow-up. IOP today in high-teens [...] OCT/BAT/DFE Assessment & Plan (12/23/2017 6:55 AM CUTTER GAS): Glaucoma suspect with steroid-induced component intraocular pressure [...] observe Assessment & Plan (01/31/2020 8:46 PM CUTTER GAS): Not visually significant to pt at this time. Assessment & Plan (08/03/2019 5:32 PM CDT): Not visually significant to pt at this time- discussed future management Assessment & Plan (08/04/2018 8:39 PM CDT): Not visually significant to pt at this time. Assessment & Plan (12/23/2017 6:54 AM CUTTER GAS): Not visually significant, observe. Encounters Date Type Department Care Team Description 04/13/2024 2:38 PM CUTTER GAS - 04/13/2024 11:59 PM CUTTER GAS Hospital Encounter [facility] [address] [place] [address] Cody Callahan MD Cervical radiculopathy (Primary Dx); Spasm of muscle; Neck pain Discharge Disposition: Discharge to home or self care from Last 3 Months Surgical History Surgery Date Site/Laterality Comments VT ARTHRD ANT INTERBODY MIN DSC LUMBAR Lumbar Vertebral Fusion - (Added by TW Conv) INSERTION / PLACEMENT / REVISION NEUROSTIMULATOR Implantation Of Intraspinal Neurostimulator - (Added by TW Conv) VT DELIVERY ONLY Section - (Added by TW Conv) ARTHRODESIS Arthrodesis Cervical - (Added by TW Conv) IR INJECTION ARTHROGRAM SI JOINT BILATERAL WITH GUIDANCE 10/28/2017 Bilateral IR INJECTION ARTHROGRAM SI JOINT BILATERAL WITH GUIDANCE 03/24/2018 Bilateral IR INJECTION ARTHROGRAM SI JOINT BILATERAL WITH GUIDANCE 08/29/2018 Bilateral SPINE SURGERY IR INJECTION ARTHROGRAM SI JOINT BILATERAL WITH GUIDANCE 01/20/2021 Bilateral HYSTERECTOMY Medical History Medical History Date Comments Osteoarthritis Arthritis - (Add ed by TW Conv) Dysuria Dysuria - (Added by TW Conv) Asymptomatic menopausal state Me nopause - (Added by TW Conv) Cataract Sleep apnea uses every night Chronic lower back pain Neck pain Family History Medical History Relation Name Comments Heart disease Father Family history of cardiac disorder - (Added by TW Conv) Hypertension Mother Family history of hypertension - (Added by TW Conv) Relation Name Status Comments Father Mother Alive Social History Tobacco Use Types Packs/Day [...] on file Legal Sex Female 2:19 PM CUTTER GAS Gender Identity Female 12/23/2022 11:06 AM CUTTER GAS Sexual Orientation Straight 12/23/2022 11 :06 AM CUTTER GAS Obstetrics History Last Filed Vital Signs Vital Sign Reading Time Taken Comments Blood Pressure 168/96 04/13/2024 3:16 PM CUTTER GAS Pulse 80 04/13/2024 3:16 PM CUTTER GAS Temperature 36.7 C (98 F) 08/21/2022 4:56 PM CDT Respiratory Rate 18 04/13/2024 3:16 PM CUTTER GAS Oxygen Saturation 96% 04/13/2024 3:16 PM CUTTER GAS Inhaled Oxygen Concentration - - Weight 83.9 kg (185 lb) 03/21/2024 9:05 AM CUTTER GAS Height 167.6 cm (5' 6 ) 03/21/2024 9:05 AM CUTTER GAS Body Mass Index 29.86 03/21/2024 9:05 AM CUTTER GAS Plan of Treatment Health Maintenance Due Date Last Done Comments Colon Cancer Screening-Colonoscopy 1967 Depression Screening 1967 Hepatitis C Screening 1967 DTaP/Tdap/Td Vaccine (1 - Tdap) 1978 Hepatitis B Screening 1985 Regular Well Visit/Exam 18-64 1985 Zoster Vaccine (1 of 2) 2017 Breast Cancer Screening-Mammogram 12/25/2023 12/24/2022, 12/23/2022, 12/23/2022, Additional history exists Influenza Vaccine (Season Ended) 2024 12/17/2021, 12/27/2020, 12/20/2018, Additional history exists Pneumococcal vaccine <65 Aged Out No longer eligible based on patient's age to complete this topic Goals Goal Patient Goal Type Associated Problems Recent Progress Patient-Stated? Author CCM Chronic Pain Care Plan Chronic Care Management No Soraida Lim, RN Note: Problem: Chronic Pain Goals: 1. Minimize further functional decline 2. Maximize quality of life 3. Control pain Strategies: - Activity/exercise program recommendation - Conservative stepwise pain medicine strategy with multi-disciplinary approach - Recommend healthy lifestyle strategies and compensatory methods as needed Reduce the likelihood of falling Lifestyle No Soraida Lim, RN Note: Below are four things you [...] on stairs Contact your local community or [facility] for information on exercise, fall prevention programs, or options for improving home safety. Medical Devices Implanted Type Area Pmp Device Identifier Shelf Expiration Date Model / Serial / Lot Neurostimulator Neurostimulator Right: Bladder Description:Medtronic Spinal Cord Stimulator Spinal Cord Stimulator Lumbar-Sa cral Spine Description:[employer]ifi [employer], Generator on left side Procedures Procedure Name Priority Date/Time Associated Diagnosis Comments IR EPIDURAL INJECTION CERVICAL W GUIDANCE Schedule Routine, Read Routine (OP Routine) 04/13/2024 3:15 PM CUTTER GAS Spasm of muscle Neck pain SCREENING MAMMOGRAM BILATERAL W ANOOP Schedule Routine, Read Routine (OP Routine) 12/23/2022 2:10 PM CUTTER GAS Screening mammogram, encounter for from Last 3 Months or Most Recently Relevant to Health Maintenance Results * IR Epidural Injection Cervical W Guidance (Interlaminar) (04/13/2024 3:15 PM CUTTER GAS) Narrative RAD_PACS[facility] - 04/13/2024 3:16 PM CUTTER GAS The images from this study are not interpreted by Radiology. Please refer to the physician's procedure / OR operative note. us Lori Robins Aguila MD IMG IR PROCEDURES Final Re sult [facility] * Screening Mammogram Bilateral W Anoop (12/23/2022 2:10 PM CUTTER GAS) Anatomical Region Laterality Modality Breast Bilateral Mammography Narrative 12/24/2022 3:33 PM CUTTER GAS Mammogram Technique: Bilateral Digital Breast Tomosynthesis, Bilateral C-view 2D Screening mammogram. Views obtained: bilateral craniocaudal and bilateral mediolateral oblique. Computer Aided Detection was performed. Mammogram Findings: The present examination has been compared to prior imaging studies performed at [facility] on 08/02/2018, and at [facility] on 06/08/2016 and 08/01/2021. There are scattered [...] compared to prior imaging studies performed at [facility] on 08/02/2018, andat [facility] on 06/08/2016 and 08/01/2021. There are scattered areas of fibroglandular density. There is no suspicious abnormality in either breast. Impression: There is no mammographic evidence of malignancy. Annual screening mammography is recommended. OVERALL FINAL ASSESSMENT: BI-RADS CATEGORY 1: Negative. Self Screening Mammogram IMG MAMMO PROCEDURES Fi nal Result from Last 3 Months or Most Recently Relevant to Health [place] [address] [place] [address] MEDICARE [place] [address] MEDICARE [facility] CHOICE PLUS IDPA [facility] [place] [address] MEDICARE [facility] Address: [address] [address] [place] [address] [place] [address] IDPA Care Teams Computer Laboratory Technician Relationship Specialty Start Date End Date Tyson Talbert MD PCP - General 06/08/16
--- OUTSIDE RECORDS SUMMARY | 2024-06-21 08:35 | XMS_ITS | Data Portability ---
Author Organization [facility], Main Office Address [address] [place] [address] Assessment No assessment recorded. Plan of Treatment Reminders Order Date Submit Date Provider Last Modified By Organization Details Last Modified Time Details Appointments None recorded. Lab CBC w/ auto diff 025 025 [facility], [address], [place], [address], 5 14:57:49 CMP, serum or plasma 025 025 [email or web address] [facility], [address], [place], [address], 5 14:57:49 T4, free, serum 025 025 [email or web address] [facility] Adriel [facility], [address], [place], [address], 5 14:57:50 lipid panel, serum 025 025 [facility]riel [facility], [address], [place], [address], 5 14:57:50 TSH, serum or plasma 025 025 [email or web address] [facility], [address], [place], [address], 5 14:57:50 drug screen, urine 025 025 [email or web address] [facility], [address], [place], [address], 5 14:57:50 CMP, serum or plasma 024 ERICK [facility], [address], [place], [address], 4 19:25:26 CBC w/ auto diff 024 ERICK [facility], [address], [place], [address], 4 19:22:44 lipid panel, serum 024 ERICK [facility], [address], [place], [address], 4 19:25:31 vitamin B12, serum 024 [email or web address] [facility], [address], [place], [address], 4 16:14:48 magnesium , serum or plasma 024 024 [email or web address] [facility], [address], [place], [address], 4 16:14:48 CBC w/ auto diff 024 024 [facility], [address], [place], [address], 4 16:14:47 CMP, serum or plasma 024 024 [email or web address] [facility], [address], [place], [address], 4 16:14:47 lipid panel, serum 024 024 [email or web address] [facility], [address], [place], [address], 4 16:14:48 TSH, serum or plasma 024 024 [id number] [facility], [address], [place], [address], 4 16:14:48 T4, free, serum 024 024 [email or web address] [facility], [address], [place], [address], 4 16:14:48 CMP, serum or plasma 023 023 ERICK [facility], [address], [place], [address], 3 19:44:13 lipid panel, serum 023 023 ERICK [facility], [address], [place], [address], 3 19:44:18 CBC w/ auto diff 023 023 [facility], [address], [place], [address], 3 19:48:53 T4, free, serum 023 023 [facility], [address], [place], [address], 3 19:56:18 TSH, serum or plasma 023 023 [facility], [address], [place], [address], 3 20:16:32 drug screen, urine 023 023 [facility], [address], [address], [place], [address], 19:45:39 Referral None recorded. Procedures None recorded. Surgeries None recorded. Imaging None recorded. Medication Orders None recorded. Patient TargetsNo targets recorded. Patient Instructions Encounter Date Encounter Id Patient Instructions Last Modified By Organization Details Last Modified Time 02/02/2023 [id number] Follow-up essent ial hypertension -hyperlipidemia -chronic pain syndrome all clinically stable. Will need blood work in the form of a CBC, CMP, lipid and thyroid. Continue on current Rx follow-up in 4 months Portions of the record may have been created with voice recognition software. Occasional wrong-word or qmtol-w-tjhj substitutions may have occurred due to the inherent limitations of voice recognition software. Read the chart carefully and recognize, using context, where substitutions have occurred. [email or web address] Not available 02/02/2023 12:46:29 06/01/2023 [id number] risk assessment* [email or web address] Not availabl e 06/01/2023 12:36:33 INFLUENZA VACCIN E TD/TDAP Recommended today, patient declined Ordered Pa tient will get at local pharmacy/health department PNEUMONIA VACCINE Ordered Recommended today, patient declined Patient will get at local pharmacy/health department Recommen ded at age 67 SHINGLES Ordered Recommended today, patient declined Patient will get at local pharmacy/health department MAMMOGRAM: Last Mammogram No screening necessary patient is up to date DEXA SCAN CERVICAL SCREENING/PELVIC EXAMINATION COLORECTAL SCREENING: Last Colonoscopy ____ No screening necessary patient is up to date DEPRESSION SCREENING Continue current medication BMI Overweight continue your current weight loss efforts try to lose 5% of your body weight try to lose 10% of your body weight NUTRITION PHYSICAL ACTIVITY Need more exercise/physical activity VISION ALCOHOL USE No alcohol use Occasional/Soci al Use TOBACCO USE non smoker LUNG CANCER SCREENING Non Smoker-not indicated SEXUALLY ACTIVE HEPATITIS C SCREENING Not indicated GLUCOSE SCREENING LIPID SCREENING [email or web address] Not available 06/01/2023 12:26:28 Adult health examination risk assessment stable. Follow-up for hypertension, hyperlipidemia, GERD, chronic pain syndrome and obesity class one. All clinically stable. bone density scan Next Appointment: 4 Months Approximate Date: 09/29/2023 Portions of the record may have been created with voice recognition software. Occasional wrong-word or bbrqt-w-tzjl substitutions may have occurred due to the inherent limitations of voice recognition software. Read the chart carefully and recognize, using context, where substitutions have occurred. Not available 06/01/2023 12:36:13 09/30/2023 [id number] Follow-up essent ial hypertension, hyperlipidemia, GERD, obesity class one all clinically stable. Had blood work performed in June which looked good. Will continue on current Rx follow-up in 4 months. Next Appointment: 4 Months Approximate Date: 01/28/2024 Portions of the record may have been created with voice recognition software. Occasional wrong-word or yhzmh-p-[id number] substitutions may have occurred due to the inherent limitations of voice recognition software. Read the chart carefully and recognize, using context, where substitutions have occurred. [email or web address] Not available 09/30/2023 12:37:11 02/03/2024 [id number] Follow-up hypertension, hyperlipidemia, GERD, depression all clinically stable. Also chronic pain syndrome. Will check blood work consisting of CBC, CMP lipid and continue on current medications and follow-up in four months. Try to set up with pain management Additional Orders - Directives - Recommendations 1. set up with pain management chronic back cervical pain Follow Up: 4 Months Approximate Date: 06/02/2024 Portions of the record may have been created with voice recognition software. Occasional wrong-word or ekfag-i-irda substitutions may have occurred due to the inherent limitations of voice recognition software. Read the chart carefully and recognize, using context, where substitutions have occurred. Created: Tyson Talbert M.D. 02.03.2024 12:04 PM Not available 02/03/2024 13:04:25 06/08/2024 [id number] Follow-up hypertension, hyperlipidemia, GERD, chronic pain syndrome and obesity class one. Clinically doing well check blood work consisting of CBC, CMP, lipid, thyroid. Check a urine drug screen. Continue on current Rx follow-up in four months Follow Up: 4 Months Approximate Date: 10/06/2024 Portions of record are template driven. When necessary additional context will be provided. Additionally some portions have been created with voice recognition software. Occasional wrong-word or ebfkk-f-bpjw substitutions may have occurred due to the inherent limitations of voice recognition software. Read the chart carefully and recognize, using context, where substitutions may have occurred. Created: Tyson Talbert M.D. 06.08.2024 11:26 AM [email or web address] Not available 06/08/2024 12:26:12 Reason for Referral None Reported. Results Created Date Observation Date Name Description Value Unit Range Abnormal Flag Note LastModifiedBy Organization Detail LastModifiedTime 02/03/2002/02/2023 COMPR EHENS CESAR METAB OLIC PANEL sodium 138 mmol/ L 137-14 5 Not Available [facility] (Lab) [address] [place], [address], 02/02/2023 19:44:13 02/03/2002/02/2023 COMPR EHENS CESAR METAB OLIC PANEL potassium 3.9 mmol/ L 3.5-5. 1 Not Available [facility] (Lab) [address] [place], [address], 02/02/2023 19:44:13 02/03/20 23 02/02/2023 COMPR EHENS CESAR METAB OLIC PANEL chloride 101 mmol/ L 98-107 Not Available [facility] (Lab) [address] [place], [address], 02/02/2023 19:44:13 02/03/20 23 02/02/2023 COMPR EHENS CESAR METAB OLIC PANEL carbon dioxide 31 mmol/ L 22-30 high Not Available [facility] (Lab) [address] [place], [address], 02/02/2023 19:44:13 02/03/20 23 02/02/2023 COMPR EHENS CESAR METAB OLIC PANEL anion gap 9.9 mmol/ L 14-22 low Not Available [facility] (Lab) [address] [place], [address], 02/02/2023 19:44:13 02/03/20 23 02/02/2023 COMPR EHENS CESAR METAB OLIC PANEL glucose 91 mg/dL 70-99 Not Available [facility] (Lab) [address] [place], [address], 02/02/2023 19:44:13 02/03/20 23 02/02/2023 COMPR EHENS CESAR METAB OLIC PANEL BUN 15 mg/dL 8-19 Not Available [facility] (Lab) [address] [place], [address], 02/02/2023 19:44:13 02/03/20 23 02/02/2023 COMPR EHENS CESAR METAB OLIC PANEL creatinine 0.67 mg/dL 0.66-1 .25 Not Available [facility] (Lab) [address] [place], [address], 02/02/2023 19:44:13 02/03/20 23 02/02/2023 COMPR EHENS CESAR METAB OLIC PANEL GFR >60 Refer ence Range : [place] ge GFR Healt hy Adult : >60 mL/mi n/1.7 3 m2 Chron ic Kidne y Disea se: 15-60 mL/mi n/1.7 3 m2 Kidne y Failu re: <15/m L/min /1.73 m2 www.n iddk. nih.g ov The MDRD study equat ion has not been valid ated in child abdoul <18 years of age; pregn ant women ; the elder ly >85 years of age; or in some racia l or ethni c subgr oups, such as Hismo nics. Outsi de the valid ated gertrude eters , estim ated GFR is less accur ate, requi ring clini alis judgm ent on a case- by-ca se basis . Clini alis inter preta tion for other races and ages must be made by the clini daniel. The MDRD study equat ion has not been valid ated for the evalu ation of serum creat inine relat ed to nutri laurie l statu s or medic ation usage . For perso ns <18 years of age, a pedia tric GFR calcu lator is avail able on the [facility] websi te: https ://jc wnancy mayesy.o rg/pr ofess ional s/kdo qi/gf r_cal culat or Not Available [facility] (Lab) [address] [place], [address], 02/02/2023 19:44:13 02/03/20 23 02/02/2023 COMPR EHENS CEASR METAB OLIC PANEL alkaline phosphatase 45 U/L 38-126 Not Available [facility] (Lab) [address] [place], [address], 02/02/2023 19:44:13 02/03/20 23 02/02/2023 COMPR EHENS CESAR METAB OLIC PANEL alanine aminotransfe rase 57 U/L 0-35 high Not Available [facility] (Lab) [address] [place], [address], 02/02/2023 19:44:13 02/03/20 23 02/02/2023 COMPR EHENS CESAR METAB OLIC PANEL aspartate aminotransfe rase 63 U/L 15-37 high Not Available [facility] (Lab) [address] [place], [address], 02/02/2023 19:44:13 02/03/20 23 02/02/2023 COMPR EHENS CESAR METAB OLIC PANEL bilirubin, total 0.40 mg/dL 0.20-1 .30 Not Available [facility] (Lab) [address] [place], [address], 02/02/2023 19:44:13 02/03/20 23 02/02/2023 COMPR EHENS CESAR METAB OLIC PANEL calcium 9.3 mg/dL 8.4-10 .2 Not Available [facility] (Lab) [address] [place], [address], 02/02/2023 19:44:13 02/03/20 23 02/02/2023 COMPR EHENS CESAR METAB OLIC PANEL total protein 7.9 g/dL 6.3-8. 2 Not Available [facility] (Lab) [address] [place], [address], 02/02/2023 19:44:13 02/03/20 23 02/02/2023 COMPR EHENS CESAR METAB OLIC PANEL albumin 4.4 g/dL 3.4-5. 0 Not Available [facility] (Lab) [address] [place], [address], 02/02/2023 19:44:13 02/03/20 23 02/02/2023 COMPR EHENS CESAR METAB OLIC PANEL globulin 3.5 g/dL 2.6-4. 2 Not Available [facility] (Lab) [address] [place], [address], 02/02/2023 19:44:13 02/03/20 23 02/02/2023 COMPR EHENS CESAR METAB OLIC PANEL A/G ratio 1.3 ratio 1.0-2. 0 Not Available [facility] (Lab) [address] [place], [address], 02/02/2023 19:44:13 02/03/2002/02/2023 LIPID PANEL cholesterol 211 mg/dL 140-19 9 high NIH VONDA NSUS RECOM MENDA TION FOR SHERIF STERO L: ADULT CHILD LOW RISK: <200 <170 BORDE RLINE : <200- 239 ----- HIGH RISK: >240 >200 Not Available [facility] (Lab) [address] [place], [address], 02/02/2023 19:44:18 02/03/2002/02/2023 LIPID PANEL triglyceride s 280 mg/dL 0-150 high NIH VONDA NSUS REPOR T RECOM MENDA TION FOR TRIGL YCERI MEHRAN: ADULT CHILD LOW RISK: <150 ----- BODER LINE: 150-1 99 ----- HIGH RISK: >200 ----- Not Available [facility] (Lab) [address] [place], [address], 02/02/2023 19:44:18 02/03/20 23 02/02/2023 LIPID PANEL HDL cholesterol 49 mg/dL 40- Not Available [facility] (Lab) [address] [place], [address], 02/02/2023 19:44:18 02/03/20 23 02/02/2023 LIPID PANEL LDL cholesterol, calculated 106 mg/dL 0-130 NIH VONDA NSUS REPOR T RECOM MENDA TIONS FOR LDL: ADULT CHILD LOW RISK <130 <110 (OPTI MAL LDL) <100 ----- BORDE RLINE : 130-1 59 ----- HIGH RISK: >160 >130 A TRIGL YCERI DE RESUL T >400 INVAL IDATE S THE CALCU LATIO N FOR LDL FRACT IONAT ION - THE LDL RESUL T WILL NOT BE REPOR TADEO. Not Available [facility] (Lab) [address] [place], [address], 02/02/2023 19:44:18 02/03/20 23 02/02/2023 URINE DRUG SCREE N amphetamines NEGATI VE Amphe tamin e cut off 500 ng/mL Not Available [facility] (Lab) [address] [place], [address], 02/02/2023 19:45:39 02/03/20 23 02/02/2023 URINE DRUG SCREE N barbiturates NEGATI VE Priya turat e cut off 200 ng/mL Not Available [facility] (Lab) [address] [place], [address], 02/02/2023 19:45:39 02/03/20 23 02/02/2023 URINE DRUG SCREE N benzodiazepi grant NEGATI VE Benzo diaze pine cut off 200 ng/mL Not Available [facility] (Lab) [address] [place], [address], 02/02/2023 19:45:39 02/03/20 23 02/02/2023 URINE DRUG SCREE N cocaine NEGATI VE Cocai ne metab olite cut off 150 ng/mL Not Available [facility] (Lab) [address] [place], [address], 02/02/2023 19:45:39 02/03/20 23 02/02/2023 URINE DRUG SCREE N MDMA NEGATI VE MDMA cut off 500 ng/mL Not Available [facility] (Lab) [address] [place], [address], 02/02/2023 19:45:39 02/03/20 23 02/02/2023 URINE DRUG SCREE N methadone NEGATI VE Metha done cutof f 300 ng/mL . Not Available [facility] (Lab) [address] [place], [address], 02/02/2023 19:45:39 02/03/20 23 02/02/2023 URINE DRUG SCREE N opiates POSITI VE abnormal Opiat e cut off 300 ng/mL Not Available [facility] (Lab) [address] [place], [address], 02/02/2023 19:45:39 02/03/20 23 02/02/2023 URINE DRUG SCREE N oxycodone NEGATI VE Oxyco done cut off 100 ng/mL Not Available [facility] (Lab) [address] [place], [address], 02/02/2023 19:45:39 02/03/20 23 02/02/2023 URINE DRUG SCREE N phencyclidin e NEGATI VE PCP cut off 25 ng/mL Not Available [facility] (Lab) [address] [place], [address], 02/02/2023 19:45:39 02/03/20 23 02/02/2023 URINE DRUG SCREE N marijuana NEGATI VE abnormal Marij uana cut off 50 ng/mL ANY POSIT CESAR RESUL TS REPOR TADEO ARE UNCON FIRME D, AND SUCH, SHOUL D BE USED FOR MEDIC AL TREAT MENT PURPO SES ONLY. Not Available [facility] (Lab) [address] [place], [address], 02/02/2023 19:45:39 02/03/20 23 02/02/2023 CBC/C OMPLE TE BLD COUNT W/DIF F white blood cells 4.5 x10'3 /uL 4.2-10 .8 Not Available [facility] (Lab) [address] [place], [address], 02/02/2023 19:48:53 02/03/20 23 02/02/2023 CBC/C OMPLE TE BLD COUNT W/DIF F red blood cells 4.52 x10'6 /uL 3.80-5 .20 Not Available [facility] (Lab) [address] [place], [address], 02/02/2023 19:48:53 02/03/20 23 02/02/2023 CBC/C OMPLE TE BLD COUNT W/DIF F hemoglobin 14.4 g/dL 12.0-1 5.6 Not Available [facility] (Lab) [address] [place], [address], 02/02/2023 19:48:53 02/03/20 23 02/02/2023 CBC/C OMPLE TE BLD COUNT W/DIF F hematocrit 42.0 % 35.7-4 5.7 Not Available [facility] (Lab) [address] [place], [address], 02/02/2023 19:48:53 02/03/20 23 02/02/2023 CBC/C OMPLE TE BLD COUNT W/DIF F mean red cell volume 92.9 fL 82.0-9 9.0 Not Available [facility] (Lab) [address] [place], [address], 02/02/2023 19:48:53 02/03/20 23 02/02/2023 CBC/C OMPLE TE BLD COUNT W/DIF F mean red cell hemoglobin 31.9 pg 27.0-3 3.0 Not Available [facility] (Lab) [address] [place], [address], 02/02/2023 19:48:53 02/03/20 23 02/02/2023 CBC/C OMPLE TE BLD COUNT W/DIF F mean RBC HGB concentratio n 34.3 g/dL 31.0-3 6.0 Not Available [facility] (Lab) [address] [place], [address], 02/02/2023 19:48:53 02/03/20 23 02/02/2023 CBC/C OMPLE TE BLD COUNT W/DIF F red cell distribution width 12.7 % 11.8-1 5.5 Not Available [facility] (Lab) [address] [place], [address], 02/02/2023 19:48:53 02/03/20 23 02/02/2023 CBC/C OMPLE TE BLD COUNT W/DIF F platelets 141 x10'3 /uL 150-40 0 low Not Available [facility] (Lab) [address] [place], [address], 02/02/2023 19:48:53 02/03/20 23 02/02/2023 CBC/C OMPLE TE BLD COUNT W/DIF F mean platelet volume 11.0 fL 9.0-12 .4 Not Available [facility] (Lab) [address] [place], [address], 02/02/2023 19:48:53 02/03/20 23 02/02/2023 CBC/C OMPLE TE BLD COUNT W/DIF F neutrophils 38.9 % 39.0-7 2.0 low Not Available [facility] (Lab) [address] [place], [address], 02/02/2023 19:48:53 02/03/20 23 02/02/2023 CBC/C OMPLE TE BLD COUNT W/DIF F lymphocytes 45.1 % 16.0-4 7.0 Not Available [facility] (Lab) [address] [place], [address], 02/02/2023 19:48:53 02/03/20 23 02/02/2023 CBC/C OMPLE TE BLD COUNT W/DIF F monocytes 10.8 % 5.0-12 .0 Not Available [facility] (Lab) [address] [place], [address], 02/02/2023 19:48:53 02/03/20 23 02/02/2023 CBC/C OMPLE TE BLD COUNT W/DIF F eosinophils 4.3 % 1.0-7. 0 Not Available [facility] (Lab) [address] [place], [address], 02/02/2023 19:48:53 02/03/20 23 02/02/2023 CBC/C OMPLE TE BLD COUNT W/DIF F basophils 0.7 % 0.0-2. 0 Not Available [facility] (Lab) [address] [place], [address], 02/02/2023 19:48:53 02/03/20 23 02/02/2023 CBC/C OMPLE TE BLD COUNT W/DIF F immature granulocytes 0.2 % 0.00-0 .50 Not Available [facility] (Lab) [address] [place], [address], 02/02/2023 19:48:53 02/03/20 23 02/02/2023 CBC/C OMPLE TE BLD COUNT W/DIF F neutrophils, absolute count 1.74 x10'3 /uL 1.5-8. 0 Not Available [facility] (Lab) [address] [place], [address], 02/02/2023 19:48:53 02/03/20 23 02/02/2023 CBC/C OMPLE TE BLD COUNT W/DIF F lymphocytes, absolute count 2.01 x10'3 /uL 1.07-3 .43 Not Available [facility] (Lab) [address] [place], [address], 02/02/2023 19:48:53 02/03/20 23 02/02/2023 CBC/C OMPLE TE BLD COUNT W/DIF F monocytes, absolute count 0.48 x10'3 /uL 0.29-0 .99 Not Available [facility] (Lab) [address] [place], [address], 02/02/2023 19:48:53 02/03/20 23 02/02/2023 CBC/C OMPLE TE BLD COUNT W/DIF F eosinophils, absolute count 0.19 x10'3 /uL 0.02-0 .53 Not Available [facility] (Lab) [address] [place], [address], 02/02/2023 19:48:53 02/03/20 23 02/02/2023 CBC/C OMPLE TE BLD COUNT W/DIF F basophils, absolute count 0.03 x10'3 /uL 0.01-0 .08 Not Available [facility] (Lab) [address] [place], [address], 02/02/2023 19:48:53 02/03/20 23 02/02/2023 CBC/C OMPLE TE BLD COUNT W/DIF F immature granulocytes ,absolute 0.01 x10'3 /uL 0.00-0 .05 Not Available [facility] (Lab) [address] [place], [address], 02/02/2023 19:48:53 02/03/20 23 02/02/2023 CBC/C OMPLE TE BLD COUNT W/DIF F nucleated red blood cells 0.0 % -0 Not Available [facility] (Lab) [address] [place], [address], 02/02/2023 19:48:53 02/03/20 23 02/02/2023 CBC/C OMPLE TE BLD COUNT W/DIF F NRBC# 0.00 x10'3 /uL Not Available [facility] (Lab) [address] [place], [address], 02/02/2023 19:48:53 02/03/20 23 02/02/2023 T4 FREE free T4 1.04 NG/dL 0.78-2 .19 Not Available [facility] (Lab) [address] [place], [address], 02/02/2023 19:56:18 02/03/20 23 02/02/2023 TSH thyroid-stim ulating hormone 4.180 uIU/m L 0.465- 4.680 Not Available [facility] (Lab) [address] [place], [address], 02/02/2023 20:16:32 06/22/19 24 06/22/2023 CBC/C OMPLE TE BLD COUNT W/DIF F white blood cells 4.7 x10'3 /uL 4.2-10 .8 Not Available [facility] (Lab) [address] [place], [address], 06/22/2023 13:50:03 06/22/19 24 06/22/2023 CBC/C OMPLE TE BLD COUNT W/DIF F red blood cells 4.24 x10'6 /uL 3.80-5 .20 Not Available [facility] (Lab) [address] [place], [address], 06/22/2023 13:50:03 06/22/19 24 06/22/2023 CBC/C OMPLE TE BLD COUNT W/DIF F hemoglobin 13.3 g/dL 12.0-1 5.6 Not Available [facility] (Lab) [address] [place], [address], 06/22/2023 13:50:03 06/22/19 24 06/22/2023 CBC/C OMPLE TE BLD COUNT W/DIF F hematocrit 38.2 % 35.7-4 5.7 Not Available [facility] (Lab) [address] [place], [address], 06/22/2023 13:50:03 06/22/19 24 06/22/2023 CBC/C OMPLE TE BLD COUNT W/DIF F mean red cell volume 90.1 fL 82.0-9 9.0 Not Available [facility] (Lab) [address] [place], [address], 06/22/2023 13:50:03 06/22/19 24 06/22/2023 CBC/C OMPLE TE BLD COUNT W/DIF F mean red cell hemoglobin 31.4 pg 27.0-3 3.0 Not Available [facility] (Lab) [address] [place], [address], 06/22/2023 13:50:03 06/22/19 24 06/22/2023 CBC/C OMPLE TE BLD COUNT W/DIF F mean RBC HGB concentratio n 34.8 g/dL 31.0-3 6.0 Not Available [facility] (Lab) [address] [place], [address], 06/22/2023 13:50:03 06/22/19 24 06/22/2023 CBC/C OMPLE TE BLD COUNT W/DIF F red cell distribution width 13.0 % 11.8-1 5.5 Not Available [facility] (Lab) [address] [place], [address], 06/22/2023 13:50:03 06/22/19 24 06/22/2023 CBC/C OMPLE TE BLD COUNT W/DIF F platelets 161 x10'3 /uL 150-40 0 Not Available [facility] (Lab) [address] [place], [place], [address], 06/22/2023 13:50:03 06/22/19 24 06/22/2023 CBC/C OMPLE TE BLD COUNT W/DIF F mean platelet volume 10.6 fL 9.0-12 .4 Not Available [facility] (Lab) [address] [place], [address], 06/22/2023 13:50:03 06/22/19 24 06/22/2023 CBC/C OMPLE TE BLD COUNT W/DIF F neutrophils 33.5 % 39.0-7 2.0 low Not Available [facility] (Lab) [address] [place], [address], 06/22/2023 13:50:03 06/22/19 24 06/22/2023 CBC/C OMPLE TE BLD COUNT W/DIF F lymphocytes 52.1 % 16.0-4 7.0 high Not Available [facility] (Lab) [address] [place], [address], 06/22/2023 13:50:03 06/22/19 24 06/22/2023 CBC/C OMPLE TE BLD COUNT W/DIF F monocytes 9.6 % 5.0-12 .0 Not Available [facility] (Lab) [address] [place], [address], 06/22/2023 13:50:03 06/22/19 24 06/22/2023 CBC/C OMPLE TE BLD COUNT W/DIF F eosinophils 4.0 % 1.0-7. 0 Not Available [facility] (Lab) [address] [place], [address], 06/22/2023 13:50:03 06/22/19 24 06/22/2023 CBC/C OMPLE TE BLD COUNT W/DIF F basophils 0.6 % 0.0-2. 0 Not Available [facility] (Lab) [address] [place], [address], 06/22/2023 13:50:03 06/22/19 24 06/22/2023 CBC/C OMPLE TE BLD COUNT W/DIF F immature granulocytes 0.2 % 0.00-0 .50 Not Available [facility] (Lab) [address] [place], [address], 06/22/2023 13:50:03 06/22/19 24 06/22/2023 CBC/C OMPLE TE BLD COUNT W/DIF F neutrophils, absolute count 1.57 x10'3 /uL 1.5-8. 0 Not Available [facility] (Lab) [address] [place], [address], 06/22/2023 13:50:03 06/22/19 24 06/22/2023 CBC/C OMPLE TE BLD COUNT W/DIF F lymphocytes, absolute count 2.45 x10'3 /uL 1.07-3 .43 Not Available [facility] (Lab) [address] [place], [address], 06/22/2023 13:50:03 06/22/19 24 06/22/2023 CBC/C OMPLE TE BLD COUNT W/DIF F monocytes, absolute count 0.45 x10'3 /uL 0.29-0 .99 Not Available [facility] (Lab) [address] [place], [address], 06/22/2023 13:50:03 06/22/19 24 06/22/2023 CBC/C OMPLE TE BLD COUNT W/DIF F eosinophils, absolute count 0.19 x10'3 /uL 0.02-0 .53 Not Available [facility] (Lab) [address] [place], [address], 06/22/2023 13:50:03 06/22/19 24 06/22/2023 CBC/C OMPLE TE BLD COUNT W/DIF F basophils, absolute count 0.03 x10'3 /uL 0.01-0 .08 Not Available [facility] (Lab) [address] [place], [address], 06/22/2023 13:50:03 06/22/19 24 06/22/2023 CBC/C OMPLE TE BLD COUNT W/DIF F immature granulocytes ,absolute 0.01 x10'3 /uL 0.00-0 .05 Not Available [facility] (Lab) [address] [place], [address], 06/22/2023 13:50:03 06/22/19 24 06/22/2023 CBC/C OMPLE TE BLD COUNT W/DIF F nucleated red blood cells 0.0 % -0 Not Available [facility] (Lab) [address] [place], [address], 06/22/2023 13:50:03 06/22/19 24 06/22/2023 CBC/C OMPLE TE BLD COUNT W/DIF F NRBC# 0.00 x10'3 /uL Not Available [facility] (Lab) [address] [place], [address], 06/22/2023 13:50:03 06/22/19 24 06/22/2023 COMPR EHENS CESAR METAB OLIC PANEL sodium 137 mmol/ L 137-14 5 Not Available [facility] (Lab) [address] [place], [address], 06/22/2023 14:12:45 06/22/19 24 06/22/2023 COMPR EHENS CESAR METAB OLIC PANEL potassium 4.0 mmol/ L 3.5-5. 1 Not Available [facility] (Lab) [address] [place], [address], 06/22/2023 14:12:45 06/22/19 24 06/22/2023 COMPR EHENS CESAR METAB OLIC PANEL chloride 101 mmol/ L 98-107 Not Available [facility] (Lab) [address] [place], [address], 06/22/2023 14:12:45 06/22/19 24 06/22/2023 COMPR EHENS CESAR METAB OLIC PANEL carbon dioxide 31 mmol/ L 22-30 high Not Available [facility] (Lab) [address] [place], [address], 06/22/2023 14:12:45 06/22/19 24 06/22/2023 COMPR EHENS CESAR METAB OLIC PANEL anion gap 9.0 mmol/ L 14-22 low Not Available [facility] (Lab) [address] [place], [address], 06/22/2023 14:12:45 06/22/19 24 06/22/2023 COMPR EHENS CESAR METAB OLIC PANEL glucose 94 mg/dL 70-99 Not Available [facility] (Lab) [address] [place], [address], 06/22/2023 14:12:45 06/22/19 24 06/22/2023 COMPR EHENS CESAR METAB OLIC PANEL BUN 15 mg/dL 8-19 Not Available [facility] (Lab) [address] [place], [address], 06/22/2023 14:12:45 06/22/19 24 06/22/2023 COMPR EHENS CESAR METAB OLIC PANEL creatinine 0.67 mg/dL 0.66-1 .25 Not Available [facility] (Lab) [address] [place], [address], 06/22/2023 14:12:45 06/22/19 24 06/22/2023 COMPR EHENS CESAR METAB OLIC PANEL GFR >60 Refer ence Range : Jenkin[place]ones ge GFR Healt hy Adult : >60 mL/mi n/1.7 3 m2 Chron ic Kidne y Disea se: 15-60 mL/mi n/1.7 3 m2 Kidne y Failu re: <15/m L/min /1.73 m2 www.n iddk. nih.g ov The MDRD study equat ion has not been valid ated in child abdoul <18 years of age; pregn ant women ; the elder ly >85 years of age; or in some racia l or ethni c subgr oups, such as Hispa nics. Outsi de the valid ated gertrude eters , estim ated GFR is less accur ate, requi ring clini alis judgm ent on a case- by-ca se basis . Clini alis inter preta tion for other races and ages must be made by the clini daniel. The MDRD study equat ion has not been valid ated for the evalu ation of serum creat inine relat ed to nutri laurie l statu s or medic ation usage . For perso ns <18 years of age, a pedia tric GFR calcu lator is avail able on the [facility] websi te: https ://jc w.kid elodia.o rg/pr ofess ional s/kdo qi/gf r_cal culat or Not Available [facility] (Lab) [address] [place], [address], 06/22/2023 14:12:45 06/22/19 24 06/22/2023 COMPR EHENS CESAR METAB OLIC PANEL alkaline phosphatase 48 U/L 38-126 Not Available [facility] (Lab) [address] [place], [address], 06/22/2023 14:12:45 06/22/19 24 06/22/2023 COMPR EHENS CESAR METAB OLIC PANEL alanine aminotransfe rase 35 U/L 0-35 Not Available [facility] (Lab) [address] [place], [address], 06/22/2023 14:12:45 06/22/19 24 06/22/2023 COMPR EHENS CESAR METAB OLIC PANEL aspartate aminotransfe rase 41 U/L 15-37 high Not Available [facility] (Lab) [address] [place], [address], 06/22/2023 14:12:45 06/22/19 24 06/22/2023 COMPR EHENS CESAR METAB OLIC PANEL bilirubin, total 0.50 mg/dL 0.20-1 .30 Not Available [facility] (Lab) [address] [place], [address], 06/22/2023 14:12:45 06/22/19 24 06/22/2023 COMPR EHENS CESAR METAB OLIC PANEL calcium 9.7 mg/dL 8.4-10 .2 Not Available [facility] (Lab) [address] [place], [address], 06/22/2023 14:12:45 06/22/19 24 06/22/2023 COMPR EHENS CESAR METAB OLIC PANEL total protein 6.9 g/dL 6.3-8. 2 Not Available [facility] (Lab) [address] [place], [address], 06/22/2023 14:12:45 06/22/19 24 06/22/2023 COMPR EHENS CESAR METAB OLIC PANEL albumin 4.1 g/dL 3.4-5. 0 Not Available [facility] (Lab) [address] [place], [address], 06/22/2023 14:12:45 06/22/19 24 06/22/2023 COMPR EHENS CESAR METAB OLIC PANEL globulin 2.8 g/dL 2.6-4. 2 Not Available [facility] (Lab) [address] [place], [address], 06/22/2023 14:12:45 06/22/19 24 06/22/2023 COMPR EHENS CESAR METAB OLIC PANEL A/G ratio 1.5 ratio 1.0-2. 0 Not Available [facility] (Lab) [address] [place], [address], 06/22/2023 14:12:45 06/22/19 24 06/22/2023 LIPID PANEL cholesterol 128 mg/dL 140-19 9 low NIH VONDA NSUS RECOM MENDA TION FOR SHERIF STERO L: ADULT CHILD LOW RISK: <200 <170 BORDE RLINE : <200- 239 ----- HIGH RISK: >240 >200 Not Available [facility] (Lab) [address] [place], [address], 06/22/2023 14:12:50 06/22/19 24 06/22/2023 LIPID PANEL triglyceride s 136 mg/dL 0-150 NIH VONDA NSUS REPOR T RECOM MENDA TION FOR TRIGL YCERI MEHRAN: ADULT CHILD LOW RISK: <150 ----- BODER LINE: 150-1 99 ----- HIGH RISK: >200 ----- Not Available [facility] (Lab) [address] [place], [address], 06/22/2023 14:12:50 06/22/19 24 06/22/2023 LIPID PANEL HDL cholesterol 59 mg/dL 40- Not Available [facility] (Lab) [address] [place], [address], 06/22/2023 14:12:50 06/22/19 24 06/22/2023 LIPID PANEL LDL cholesterol, calculated 42 mg/dL 0-130 NIH VONDA NSUS REPOR T RECOM MENDA TIONS FOR LDL: ADULT CHILD LOW RISK <130 <110 (OPTI MAL LDL) <100 ----- BORDE RLINE : 130-1 59 ----- HIGH RISK: >160 >130 A TRIGL YCERI DE RESUL T >400 INVAL IDATE S THE CALCU LATIO N FOR LDL FRACT IONAT ION - THE LDL RESUL T WILL NOT BE REPOR TADEO. Not Available [facility] (Lab) [address] [place], [address], 06/22/2023 14:12:50 06/22/19 24 06/22/2023 MAGNE SIUM magnesium 1.7 mg/dL 1.6-2. 3 Not Available [facility] (Lab) [address] [place], [address], 06/22/2023 14:12:55 06/22/19 24 06/22/2023 T4 FREE free T4 0.83 NG/dL 0.78-2 .19 Not Available [facility] (Lab) [address] [place], [address], 06/22/2023 14:35:03 06/22/19 24 06/22/2023 TSH thyroid-stim ulating hormone 1.920 uIU/m L 0.465- 4.680 Not Available [facility] (Lab) [address] [place], [address], 06/22/2023 14:55:35 06/22/19 24 06/22/2023 VITAM IN B12 (ISABELLE KELLEY ) vb12 474 pg/mL 239-93 1 Not Available [facility] (Lab) [address] [place], [address], 06/22/2023 15:09:59 02/03/20 24 02/03/2024 CBC/C OMPLE TE BLD COUNT W/DIF F white blood cells 5.2 x10'3 /uL 4.2-10 .8 Not Available [facility] (Lab) [address] [place], [address], 02/03/2024 19:22:44 02/03/20 24 02/03/2024 CBC/C OMPLE TE BLD COUNT W/DIF F red blood cells 4.44 x10'6 /uL 3.80-5 .20 Not Available [facility] (Lab) [address] [place], [address], 02/03/2024 19:22:44 02/03/20 24 02/03/2024 CBC/C OMPLE TE BLD COUNT W/DIF F hemoglobin 14.0 g/dL 12.0-1 5.6 Not Available [facility] (Lab) [address] [place], [address], 02/03/2024 19:22:44 02/03/20 24 02/03/2024 CBC/C OMPLE TE BLD COUNT W/DIF F hematocrit 40.8 % 35.7-4 5.7 Not Available [facility] (Lab) [address] [place], [address], 02/03/2024 19:22:44 02/03/20 24 02/03/2024 CBC/C OMPLE TE BLD COUNT W/DIF F mean red cell volume 91.9 fL 82.0-9 9.0 Not Available [facility] (Lab) [address] [place], [address], 02/03/2024 19:22:44 02/03/20 24 02/03/2024 CBC/C OMPLE TE BLD COUNT W/DIF F mean red cell hemoglobin 31.5 pg 27.0-3 3.0 Not Available [facility] (Lab) [address] [place], [address], 02/03/2024 19:22:44 02/03/20 24 02/03/2024 CBC/C OMPLE TE BLD COUNT W/DIF F mean RBC HGB concentratio n 34.3 g/dL 31.0-3 6.0 Not Available [facility] (Lab) [address] [place], [address], 02/03/2024 19:22:44 02/03/20 24 02/03/2024 CBC/C OMPLE TE BLD COUNT W/DIF F red cell distribution width 13.0 % 11.8-1 5.5 Not Available [facility] (Lab) [address] [place], [address], 02/03/2024 19:22:44 02/03/20 24 02/03/2024 CBC/C OMPLE TE BLD COUNT W/DIF F platelets 157 x10'3 /uL 150-40 0 Not Available [facility] (Lab) [address] [place], [address], 02/03/2024 19:22:44 02/03/20 24 02/03/2024 CBC/C OMPLE TE BLD COUNT W/DIF F mean platelet volume 10.9 fL 9.0-12 .4 Not Available [facility] (Lab) [address] [place], [address], 02/03/2024 19:22:44 02/03/20 24 02/03/2024 CBC/C OMPLE TE BLD COUNT W/DIF F neutrophils 48.3 % 39.0-7 2.0 Not Available [facility] (Lab) [address] [place], [address], 02/03/2024 19:22:44 02/03/20 24 02/03/2024 CBC/C OMPLE TE BLD COUNT W/DIF F lymphocytes 40.2 % 16.0-4 7.0 Not Available [facility] (Lab) [address] [place], [address], 02/03/2024 19:22:44 02/03/20 24 02/03/2024 CBC/C OMPLE TE BLD COUNT W/DIF F monocytes 8.2 % 5.0-12 .0 Not Available [facility] (Lab) [address] [place], [address], 02/03/2024 19:22:44 02/03/20 24 02/03/2024 CBC/C OMPLE TE BLD COUNT W/DIF F eosinophils 2.5 % 1.0-7. 0 Not Available [facility] (Lab) [address] [place], [address], 02/03/2024 19:22:44 02/03/20 24 02/03/2024 CBC/C OMPLE TE BLD COUNT W/DIF F basophils 0.6 % 0.0-2. 0 Not Available [facility] (Lab) [address] [place], [address], 02/03/2024 19:22:44 02/03/20 24 02/03/2024 CBC/C OMPLE TE BLD COUNT W/DIF F immature granulocytes 0.2 % 0.00-0 .50 Not Available [facility] (Lab) [address] [place], [address], 02/03/2024 19:22:44 02/03/20 24 02/03/2024 CBC/C OMPLE TE BLD COUNT W/DIF F neutrophils, absolute count 2.52 x10'3 /uL 1.5-8. 0 Not Available [facility] (Lab) [address] [place], [address], 02/03/2024 19:22:44 02/03/20 24 02/03/2024 CBC/C OMPLE TE BLD COUNT W/DIF F lymphocytes, absolute count 2.10 x10'3 /uL 1.07-3 .43 Not Available [facility] (Lab) [address] [place], [address], 02/03/2024 19:22:44 02/03/20 24 02/03/2024 CBC/C OMPLE TE BLD COUNT W/DIF F monocytes, absolute count 0.43 x10'3 /uL 0.29-0 .99 Not Available [facility] (Lab) [address] [place], [address], 02/03/2024 19:22:44 02/03/20 24 02/03/2024 CBC/C OMPLE TE BLD COUNT W/DIF F eosinophils, absolute count 0.13 x10'3 /uL 0.02-0 .53 Not Available [facility] (Lab) [address] [place], [address], 02/03/2024 19:22:44 02/03/20 24 02/03/2024 CBC/C OMPLE TE BLD COUNT W/DIF F basophils, absolute count 0.03 x10'3 /uL 0.01-0 .08 Not Available [facility] (Lab) [address] [place], [address], 02/03/2024 19:22:44 02/03/20 24 02/03/2024 CBC/C OMPLE TE BLD COUNT W/DIF F immature granulocytes ,absolute 0.01 x10'3 /uL 0.00-0 .05 Not Available [facility] (Lab) [address] [place], [address], 02/03/2024 19:22:44 02/03/20 24 02/03/2024 CBC/C OMPLE TE BLD COUNT W/DIF F nucleated red blood cells 0.0 % -0 Not Available [facility] (Lab) [address] [place], [address], 02/03/2024 19:22:44 02/03/20 24 02/03/2024 CBC/C OMPLE TE BLD COUNT W/DIF F NRBC# 0.00 x10'3 /uL Not Available [facility] (Lab) [address] [place], [address], 02/03/2024 19:22:44 02/03/20 24 02/03/2024 COMPR EHENS CESAR METAB OLIC PANEL sodium 138 mmol/ L 137-14 5 Not Available [facility] (Lab) [address] [place], [address], 02/03/2024 19:25:25 02/03/20 24 02/03/2024 COMPR EHENS CESAR METAB OLIC PANEL potassium 3.9 mmol/ L 3.5-5. 1 Not Available [facility] (Lab) [address] [place], [address], 02/03/2024 19:25:25 02/03/20 24 02/03/2024 COMPR EHENS CESAR METAB OLIC PANEL chloride 101 mmol/ L 98-107 Not Available [facility] (Lab) [address] [place], [address], 02/03/2024 19:25:25 02/03/20 24 02/03/2024 COMPR EHENS CESAR METAB OLIC PANEL carbon dioxide 31 mmol/ L 22-30 high Not Available [facility] (Lab) [address] [place], [address], 02/03/2024 19:25:25 02/03/20 24 02/03/2024 COMPR EHENS CESAR METAB OLIC PANEL anion gap 9.9 mmol/ L 14-22 low Not Available [facility] (Lab) [address] [place], [address], 02/03/2024 19:25:25 02/03/20 24 02/03/2024 COMPR EHENS CESAR METAB OLIC PANEL glucose 88 mg/dL 70-99 Not Available [facility] (Lab) [address] [place], [address], 02/03/2024 19:25:25 02/03/20 24 02/03/2024 COMPR EHENS CESAR METAB OLIC PANEL BUN 18 mg/dL 8-19 Not Available [facility] (Lab) [address] [place], [address], 02/03/2024 19:25:25 02/03/20 24 02/03/2024 COMPR EHENS CESAR METAB OLIC PANEL creatinine 0.66 mg/dL 0.66-1 .25 Not Available [facility] (Lab) [address] [place], [address], 02/03/2024 19:25:25 02/03/20 24 02/03/2024 COMPR EHENS CESAR METAB OLIC PANEL GFR >60 Refer ence Range : [place]kin[place] ge GFR Healt hy Adult : >60 mL/mi n/1.7 3 m2 Chron ic Kidne y Disea se: 15-60 mL/mi n/1.7 3 m2 Kidne y Failu re: <15/m L/min /1.73 m2 www.n iddk. nih.g ov The MDRD study equat ion has not been valid ated in child abdoul <18 years of age; pregn ant women ; the elder ly >85 years of age; or in some racia l or ethni c subgr oups, such as Hispa nics. Outsi de the valid ated gertrude eters , estim ated GFR is less accur ate, requi ring clini alis judgm ent on a case- by-ca se basis . Clini alis inter preta tion for other races and ages must be made by the clini daniel. The MDRD study equat ion has not been valid ated for the evalu ation of serum creat inine relat ed to nutri laurie l statu s or medic ation usage . For perso ns <18 years of age, a pedia tric GFR calcu lator is avail able on the [facility] websi te: https ://jc clifton.rima cardenas/moses finneyess ional s/kdo qi/gf r_cal culat or Not Available [facility] (Lab) [address] [place], [address], 02/03/2024 19:25:25 02/03/20 24 02/03/2024 COMPR EHENS CESAR METAB OLIC PANEL alkaline phosphatase 55 U/L 38-126 Not Available [facility] (Lab) [address] [place], [address], 02/03/2024 19:25:25 02/03/20 24 02/03/2024 COMPR EHENS CESAR METAB OLIC PANEL alanine aminotransfe rase 32 U/L 0-35 Not Available [facility] (Lab) [address] [place], [address], 02/03/2024 19:25:25 02/03/20 24 02/03/2024 COMPR EHENS CESAR METAB OLIC PANEL aspartate aminotransfe rase 43 U/L 15-37 high Not Available [facility] (Lab) [address] [place], [address], 02/03/2024 19:25:25 02/03/20 24 02/03/2024 COMPR EHENS CESAR METAB OLIC PANEL bilirubin, total 0.80 mg/dL 0.20-1 .30 Not Available [facility] (Lab) [address] [place], [address], 02/03/2024 19:25:25 02/03/20 24 02/03/2024 COMPR EHENS CESAR METAB OLIC PANEL calcium 9.5 mg/dL 8.4-10 .2 Not Available [facility] (Lab) [address] [place], [address], 02/03/2024 19:25:25 02/03/20 24 02/03/2024 COMPR EHENS CESAR METAB OLIC PANEL total protein 7.1 g/dL 6.3-8. 2 Not Available [facility] (Lab) [address] [place], [address], 02/03/2024 19:25:25 02/03/20 24 02/03/2024 COMPR EHENS CESAR METAB OLIC PANEL albumin 4.2 g/dL 3.4-5. 0 Not Available [facility] (Lab) [address] [place], [address], 02/03/2024 19:25:25 02/03/20 24 02/03/2024 COMPR EHENS CESAR METAB OLIC PANEL globulin 2.9 g/dL 2.6-4. 2 Not Available [facility] (Lab) [address] [place], [address], 02/03/2024 19:25:25 02/03/20 24 02/03/2024 COMPR EHENS CESAR METAB OLIC PANEL A/G ratio 1.4 ratio 1.0-2. 0 Not Available [facility] (Lab) [address] [place], [address], 02/03/2024 19:25:25 02/03/20 24 02/03/2024 LIPID PANEL cholesterol 135 mg/dL 140-19 9 low NIH VONDA NSUS RECOM MENDA TION FOR SHERIF STERO L: ADULT CHILD LOW RISK: <200 <170 BORDE RLINE : <200- 239 ----- HIGH RISK: >240 >200 Not Available [facility] (Lab) [address] [place], [address], 02/03/2024 19:25:31 02/03/20 24 02/03/2024 LIPID PANEL triglyceride s 164 mg/dL 0-150 high NIH VONDA NSUS REPOR T RECOM MENDA TION FOR TRIGL YCERI MEHRAN: ADULT CHILD LOW RISK: <150 ----- BODER LINE: 150-1 99 ----- HIGH RISK: >200 ----- Not Available [facility] (Lab) [address] [place] [address], [address], 02/03/2024 19:25:31 02/03/20 24 02/03/2024 LIPID PANEL HDL cholesterol 54 mg/dL 40- Not Available [facility] (Lab) [address] [place] [address], [address], 02/03/2024 19:25:31 02/03/20 24 02/03/2024 LIPID PANEL LDL cholesterol, calculated 48 mg/dL 0-130 NIH VONDA NSUS REPOR T RECOM MENDA TIONS FOR LDL: ADULT CHILD LOW RISK <130 <110 (OPTI MAL LDL) <100 ----- BORDE RLINE : 130-1 59 ----- HIGH RISK: >160 >130 A TRIGL YCERI DE RESUL T >400 INVAL IDATE S THE CALCU LATIO N FOR LDL FRACT IONAT ION - THE LDL RESUL T WILL NOT BE REPOR TADEO. Not Available [facility] (Lab) [address], [place], [address], 02/03/2024 19:25:31 01/13/20 23 12/23/2022 MAMMO , gwendolyne john, digit al, bilat eral No observ ation record ed. [email or web address] Not Available 2022 12:40:39 03/11/19 24 03/11/2023 XR, chest , 2 view No observ ation record ed. [email or web address] [place] [address] [address], [place], [address], 03/11/2023 22:32:50 03/11/19 24 03/11/2023 XR, chest , 2 view No observ ation record ed. [email or web address] [place] [address] Imaging [address], [place], [address], 03/11/2023 22:33:02 06/22/19 24 DEXA, axial skele ton [facility] [address] [facility] [address] [phone] Patien t Name: MAYDA HARTMANN ion #: [id number] Sex: F : 1965 8 Dictat ed By: Mart Ibrahim Attend [facility] Physic candie: GENET TALBERT CE [facility] Phys[facility] candie: GENET TALBERT CE Exam Date: 2023 10:15 AM Exam Name: XR DEXA AXIAL/ HIP/PE LVIS/S PINE Admitt ing Diagno sis(es ): INDICA TION: post menopa usal DEXA SCAN: BONE DENSIT Y REPORT : LEFT FEMORA L NECK : T Score: -0.1 LEFT HIP TOTAL : T Score: 0.8 TOTAL RADIUS : T Score: 0.9 10 YEAR FRACTU RE RISK* Not report ed IMPRES SAI: Normal study. ------ ------ ------ ------ ------ ------ ------ ------ ----- *FRAX versio n 3.08. Fractu re probab ility calcul ated for an untrea tadeo patien t. Fractu re probab ility may be lower if the patien t has receiv ed treatm ent. T-scor e: compar ammy by hernán dodson deviat ion (SD) to a young adult popula tion, matche d for sex and ethnic ity (used for postme nopaus al women and men >50 years) and classi fied by WHO criter ia. -1.0: normal <-1.0 to >-2.5: osteop enia -2.5: osteop orosis -2.5 plus fragil ity fractu re: severe osteop orosis Page 1 [facility] [address] [place] [address] [phone] Patikev t Name: MANE New MAYDA Access ion #: [id number] Sex: F : 1965 8 Dictat ed By: Mart Valverde ing Physic candie: TRINI FAUST Physic candie: GENET TALBERT Exam Date: 2023 10:15 AM Exam Name: XR DEXA AXIAL/ HIP/PE LVIS/S PINE Admitt ing Diagno sis(es ): Z-scor e: compar ed by SD to an age, sex, and ethnic ity popula tion (used for premen opausa l women, men <50 years, and childr en instea d of T-scor e WHO criter ia 4) <-2.0: below expect ed range/ low bone densit y for age, and a cause should be sought Electr onical ly Signed by: Mart Ibrahim at 2023 11:00: 54 AM Page 2 [email or web address] [facility] ([facility]) [address] [place], [address], 06/22/2023 16:29:27 Result Notes None recorded. 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 3 05:57:15 Liver enzymes outside reference range 277204510 Active Not Available [facility] 3 05:57:15 Senile osteoporos is 86298843 Active 2021 Not Available [facility] 3 05:57:15 Postoperat cesar visit 913097730 Active [address] [facility] [address] [facility] 3 05:57:16 Localized, primary osteoarthr itis of the hand 389889661 Active Not Available [facility] 3 05:57:16 Gastroesop hageal reflux disease 351120701 Active Not Available [facility] 3 05:57:16 Headache 75754723 Active Not Available [facility] 3 05:57:16 Finding of body mass index 707305358 Active 2021 Not Available [facility] 3 05:57:16 Pain in right foot 7975587556667 07 Active 2020 Not Available [facility] 3 05:57:16 Erythema multiforme 44013298 Active Not Available [facility] 3 05:57:16 Chronic pain syndrome 725259757 Active 2017 Not Available [facility] 3 05:57:16 Obesity 227266516 Active 2021 Not Available [facility] 3 05:57:16 Arthropath y of joint of hand 731394339 Active Not Available [facility] 3 05:57:16 Sprain of foot 38662358 Active Not Available [facility] 3 05:57:16 Hyperlipid emia 47977228 Active 2021 Not Available [facility] 3 05:57:16 Essential hypertensi on 49079637 Active 2019 Not Available [facility] 3 05:57:16 Closed fracture of calcaneus 50403640 Active 2020 Not Available [facility] 3 05:57:16 Candidiasi s of vagina 09878957 Active 2021 Not Available [facility] 3 05:57:17 Sleep apnea 34321606 Active Not Available [facility] 3 05:57:17 Pain of elbow region 21113466 Active Not Available [facility] 3 05:57:17 Abnormal liver function 88360819 Active Not Available [facility] 3 05:57:17 COVID-19 939141928 Active 2021 Not Available [facility] 3 05:57:17 Fatigue 11045859 Active Not Available [facility] 3 05:57:17 Herniation of nucleus pulposus 25096537 Active Not Available [facility] 3 05:57:17 Pain in limb 14903204 Active Not Available [facility] 3 05:57:17 Depressive disorder 57313333 Active 2022 Tyson Talbert MD [address], [address], [place], [address] , [place] [facility] 3 14:33:45 Acute sinusitis 19722047 Active 2022 Tyson Talbert MD [address], [address], [place], [address] , [place] [facility] 3 14:11:01 Acute bronchitis 91405720 Active 2022 Tyson Talbert MD [address], [address], [place], [address] , [place] [facility] 3 14:07:00 Diarrhea 05736410 Active 2022 Gianna law, [place] [facility] 3 14:15:35 Clostridiu m difficile colitis 704217863 Active 2022 Tyson Talbert MD [address], [address], [place], [address] , [place] [facility] 3 14:18:48 Obese class I 7616616709974 07 Active 2022 Tyson Talbert MD [address], [address], [place], [address] , [facility] 3 16:24:57 Spinal stenosis in cervical region 26381602 Active 2022 Marcie Green null, [place] [facility] 3 11:36:03 Bacterial vaginosis 418295878 Active 2022 Tyson Talbert MD [address], [address], [place], [address] , [facility] 3 15:19:50 Liver enzymes level above reference range 931919029 Active 2023 Janina Pulido CMA null, [place] [facility] 4 10:07:04 Wheezing 93703478 Active 2023 Tyson Talbert MD [address], [address], [place], [address] , [facility] 4 16:33:55 Cough 17209050 Active 2023 Gianna Ramona null, [place] - [facility] 4 17:02:57 Influenza 4962317 Active 2024 Tyson Talbert MD [address], [address], [place], [address] , [facility] 5 14:19:25 Problem Notes None recorded. Procedures Surgical History None recorded. Imaging Results Imaging Date Name Status LastModified by Organiz ation Details LastModified Time 12/23/2022 MAMMO, screening, digital, bilateral [email or web address] [id number] Information not available 01/12/2023 12:40:39 03/11/2023 XR, chest, 2 view completed [email or web address] [place] [address] [address], [place], [address], 03/11/2023 22:32:50 03/11/2023 XR, chest, [address] view completed [address], [place], [address], 03/11/2023 22:33:02 06/22/2023 DEXA, axial skeleton completed [email or web address] [facility] (Imaging) [address], [place], [address], 06/22/2023 16:29:27 Procedure Notes None recorded. Medical Equipment None Reported. Allergies Allergen ID Allergen Name Allergen Category Reaction Reaction Severity Criticality Documentation Date Start Date Code Code System Note Provider Name and Address Organization Details Recorded Time 17011 morphine medicatio n itching Not available Not available 04/15/2022 7052 RxNorm Not Available [facility] 06:02:00 Medications Name Sig Start Date Stop Date Status Note LastModified by Organization Details LastModified Time losartan 50 mg tablet TAKE 1 TABLET BY MOUTH EVERY DAY AT NIGHT 10/06 completed Not Available Not Available Not Available amoxicill in 500 mg capsule Take 1 capsule 3 times a day by oral route for 10 days. 12/27 completed Not Available Not Available Not Available terconazo le 0.4 % vaginal cream APPLY TO EXTERNAL VAGINAL AREA ONCE DAILY active Not Available Not Available No t Available azelastin e 0.05 % eye drops INSTILL 1 DROP INTO BOTH EYES TWICE A DAY active Not Available Not Available No t Available prednison e 10 mg tablet PLEASE SEE ATTACHED FOR DETAILED DIRECTIO NS 05/31 completed Not Available Not Available Not Available doxycycli ne hyclate 100 mg capsule 06/09 completed Not Available Not Available Not Available atorvasta tin 20 mg tablet TAKE 1 TABLET BY MOUTH EVERY DAY active Not Available Not Available No t Available pilocarpi ne 1 % eye drops INSTILL 1 DROP INTO BOTH EYES IN THE EVENING NEEDED active Not Available Not Available No t Available trazodone 50 mg tablet TAKE 1 TABLET BY MOUTH EVERY DAY AT NIGHT active Not Available Not Available No t Available azithromy poncho 250 mg tablet TAKE 2 TABLET EVERY DAY BY ORAL ROUTE FOR 1 DAY THEN ONE DAILY 06/08 completed Not Available Not Available Not Available tizanidin e 4 mg tablet TAKE 1 TABLET BY MOUTH EVERY DAY NIGHTLY active Not Available Not Available No t Available fluconazo le 150 mg tablet TAKE 1 TABLET BY MOUTH EVERY DAY 05/31 completed Not Available Not Available Not Available benzonata te 200 mg capsule TAKE 1 CAPSULE BY MOUTH THREE TIMES A DAY 06/08 completed Not Available Not Available Not Available Vicodin 5 mg-500 mg tablet Take 1 tablet every 4 hours by oral route. 2013 active Not Available Not Available Not Avai lable metronida zole 0.75 % (37.5 mg/5 gram) vaginal gel Insert 1 applicat orful vaginall y every night at bedtime for 5 days 02/02 completed Not Available Not Available Not Available doxycycli ne hyclate 50 mg capsule 06/09 completed Not Available Not Available Not Available fluoroura cil 5 % topical cream APPLY TO AFFECTED AREA TWICE DAILY FOR 2 WEEKS 05/31 completed Not Available Not Available Not Available clobetaso l 0.05 % topical cream APPLY EXTERNAL LY TO THE AFFECTED AREA TWICE DAILY active Not Available Not Available No t Available promethaz ine 6.25 mg-codein e 10 mg/5 mL syrup Take 5 ML EVERY 6 HOURS by oral route PRN for cough active PHARMACY NEVER RECEIVED ONE FOR THIS FROM EARLIER THIS WEEK GIVING TO PT Not Available Not Available Not Available metronida zole 500 mg tablet TAKE 1 TABLET BY MOUTH EVERY 8 HOURS 05/31 completed Not Available Not Available Not Available tretinoin 0.05 % topical cream 06/09 completed Not Available Not Available Not Available Zantac 150 mg tablet take two tablets am and one pm 04/10 completed Not Available Not Available Not Available ketorolac 10 mg tablet 05/06 completed Not Available Not Available Not Available prednisol one acetate 1 % eye drops,spencer pension PLEASE SEE ATTACHED FOR DETAILED DIRECTIO NS 05/31 completed Not Available Not Available Not Available hydrocodo ne 7.5 mg-acetam inophen 325 mg tablet take one tablet four times a day for DX: M51.9 2024 active Not Available Not Available Not Avai lable timolol 0.5 % eye drops INSTILL 1 DROP INTO AFFECTED EYE(S) BY OPHTHALM IC ROUTE 2 TIMES PER DAY 2016 active Not Available Not Available Not Avai lable pantopraz ole 40 mg tablet,de layed release TAKE 1 TABLET BY MOUTH EVERY DAY active Not Available Not Available No t Available tacrolimu s 0.1 % topical ointment 06/09 completed Not Available Not Available Not Available oseltamiv ir 75 mg capsule TAKE 1 CAPSULE BY MOUTH TWICE A DAY FOR 5 DAYS active Not Available Not Available No t Available triamcino lone acetonide 0.1 % topical ointment APPLY A THIN LAYER TO THE AFFECTED AREA(S) BY TOPICAL ROUTE 2 TIMES PER DAY 10/28 completed Not Available Not Available Not Available nystatin 100,000 unit/gram topical cream 04/23 completed Not Available Not Available Not Available lidocaine 5 % topical patch 06/09 completed Not Available Not Available Not Available losartan 25 mg tablet TAKE 1 TABLET BY MOUTH EVERY DAY AT NIGHT 10/06 completed Not Available Not Available Not Available brimonidi ne 0.2 % eye drops INSTILL 1 DROP INTO BOTH EYES TWICE A DAY active Not Available Not Available No t Available hydrochlo rothiazid e 12.5 mg capsule TAKE 1 CAPSULE BY MOUTH ONCE A DAY active Not Available Not Available No t Available hydrocort isone 2.5 % topical cream PLEASE SEE ATTACHED FOR DETAILED DIRECTIO NS 05/31 completed Not Available Not Available Not Available Levaquin 500 mg tablet Take 1 tablet every 24 hours by oral route. 12/07 completed Not Available Not Available Not Available Transderm -Scop 1 mg over 3 days transderm al patch Apply by transder mal route q 72 hours 10/28 completed Not Available Not Available Not Available lorazepam 1 mg tablet TAKE 1 TABLET BY MOUTH EVERYDAY AT BEDTIME active Not Available Not Available No t Available estradiol 0.01% (0.1 mg/gram) vaginal cream INSERT 3G VAGINALL Y EVERY DAY FOR 2 WEEKS, THEN INSERT THREE TIMES WEEKLY active Not Available Not Available No t Available methylpre dnisolone 4 mg tablets in a dose pack TAKE 6 TABLETS ON DAY 1 DIRECTED ON PACKAGE AND DECREASE BY 1 TAB EACH DAY FOR A TOTAL OF 6 DAYS 05/31 completed Not Available Not Available Not Available albuterol sulfate HFA 90 mcg/actua tion aerosol inhaler INHALE 2 PUFFS EVERY 4 HOURS BY INHALATI ON ROUTE. active Not Available Not Available No t Available timolol maleate 0.5 % eye drops 06/09 completed Not Available Not Available Not Available losartan 100 mg tablet TAKE 1 TABLET BY MOUTH ONCE A DAY DUE FOR FOLLOW UP active Not Available Not Available No t Available Estrace 1 mg tablet Take 1 tablet every day by oral route. 2013 active Not Available Not Available Not Avai lable amoxicill in 875 mg-potass ium clavulana te 125 mg tablet TAKE 1 TABLET BY MOUTH EVERY 12 HOURS 06/09 completed Not Available Not Available Not Available neomycin 3.5 mg/g-poly myxin B 10,000 unit/g-de xameth 0.1 % eye oint APPLY TO AFFECTED EYE THREE TIMES DAILY AND EVERY NIGHT AT BEDTIME 04/23 completed Not Available Not Available Not Available olmesarta n 20 mg tablet TAKE ONE HALF TABLET BY MOUTH EVERY DAY 04/23 completed Not Available Not Available Not Available azelaic acid 15 % topical gel 06/09 completed Not Available Not Available Not Available Restasis 0.05 % eye drops in a dropperet te active Not Available Not Available Not Available Premarin 1.25 mg tablet TAKE ONE TABLET BY MOUTH EVERY DAY FOR HORMONE REPLACEM ENT active Not Available Not Available No t Available duloxetin e 30 mg capsule,d elayed release TAKE 1 CAPSULE BY MOUTH EVERY DAY active Not Available Not Available No t Available Zanaflex 4 mg capsule Take 1 capsule every day by oral route. 04/23 completed Not Available Not Available Not Available pregabali n 75 mg capsule TAKE 1 CAPSULE BY MOUTH 3 TIMES A DAY. active Not Available Not Available No t Available Lyrica 150 mg capsule Take 1 capsule 3 times a day by oral route. 2013 active one in the am two in the pm Not Available Not Available Not Available Paxlovid 300 mg (150 mg x 2)-100 mg tablets in a dose pack TK 2 NIRMATRE LVIR TS AND 1 RITONAVI R T TOGETHER PO TWICE DAILY 02/02 completed Not Available Not Available Not Available COVID-19 At-Home Test kit FOLLOW INSTRUCT IONS INCLUDED WITH THE PACKAGE. 10/06 completed Not Available Not Available Not Available Vitals Date Recorded Body height Body mass index (BMI) Body weight Heart rate Oxygen saturation Oxygen saturation in Arterial blood by Pulse oximetry Systolic blood pressure Diastolic blood pressure Provider Name and Address Organization Details Last Updated DateTime 3 165.1 cm 32.4 kg/m2 68539.5 1 g 90 /min 98 % 98 % 134 mm[Hg] 80 mm[Hg] Gianna Greene [employer] [facility] 3 12:31:44 Date Recorded Body height Body mass index (BMI) Body weight Heart rate Body temperature Oxygen saturation Oxygen saturation in Arterial blood by Pulse oximetry Systolic blood pressure Diastolic blood pressure Provider Name and Address Organization Details Last Updated DateTime 4 165.1 cm 32.8 kg/m2 84226.7 g 88 /min 97 [degF] 95 % 95 % 128 mm[Hg] 80 mm[Hg] Gianna JOHNSON [employer] [facility] 4 12:19:00 Date Recorded Body height Body mass index (BMI) Body weight Heart rate Body temperature Oxygen saturation Oxygen saturation in Arterial blood by Pulse oximetry Systolic blood pressure Diastolic blood pressure Provider Name and Address Organization Details Last Updated DateTime 4 165.1 cm 33.1 kg/m2 91847.8 8 g 89 /min 97.7 [degF] 97 % 97 % 118 mm[Hg] 86 mm[Hg] Wendy Guillen [employer]awrence [employer] [facility] [employer] [facility] 4 12:25:42 Date Recorded Body height Body mass index (BMI) Body weight Heart rate Body temperature Oxygen saturation Oxygen saturation in Arterial blood by Pulse oximetry Systolic blood pressure Diastolic blood pressure Provider Name and Address Organization Details Last Updated DateTime 4 165.1 cm 32.9 kg/m2 87084.2 9 g 80 /min 97 [degF] 95 % 95 % 126 mm[Hg] 88 mm[Hg] Wendy Guillen [employer] [facility] [employer] [facility] 4 12:34:50 Date Recorded Body height Body mass index (BMI) Body weight Heart rate Body temperature Oxygen saturation Oxygen saturation in Arterial blood by Pulse oximetry Systolic blood pressure Diastolic blood pressure Provider Name and Address Organization Details Last Updated DateTime 5 165.1 cm 31.6 kg/m2 13446.5 5 g 96 /min 97 [degF] 96 % 96 % 132 mm[Hg] 78 mm[Hg] Gianna Greene [employer] [facility] 5 12:16:49 Social History Question Answer Notes LastModified by [employer] Details LastModified Time Tobacco Smoking Status Former Smoker Not Available [facility] 04/15/2022 05:52:50 What Is Your Level Of Alcohol Consumption? Occasional [id number] Information not available 04/15/2022 In The 14 Days Before Symptom Onset, Have You Had Close Contact With A Laboratory-confir med COVID-19 While That Case Was Ill? No [id number] Information not available 04/15/2022 In The 14 Days Before Symptom Onset, Have You Had Close Contact With A Person Who Is Under Investigation For COVID-19 While That Person Was Ill? No [id number] Information not available 04/15/2022 Do You Or Have You Ever Used E-cigarettes Or Vape? Never Used Electronic Cigarettes [id number] Information not available 04/15/2022 Do You Or Have You Ever Used Smokeless Tobacco? Never Used Smokeless Tobacco [id number] Information not available 04/15/2022 How Much Tobacco Do You Smoke? 0.5 PPD [id number] Information not available 04/15/2022 How Many Years Have You Smoked Tobacco? 15 [id number] Information not available 04/15/2022 Have You Recently Traveled Abroad? No [id number] Information not available 04/15/2022 Sex: Female Functional Status Question Answer Note LastModified by [employer] Details LastModified Time What is your exercise level? Occasional [id number] Information not available 04/15/2022 Mental Status None recorded. Family History Nothing Reported Notes:Mother living 83 HTN F ather 46 from ASHD and complications of CABG One brother and one sister both living and in good health Medical History Condition Response NERVE DISEASE N BLINDNESS N RHEUMATIC FEVER N KIDNEY STONES N BLADDER PROBLEMS N OTHER # 1 N POLIO N LUNG DISEASE/DISORDER N RADIATION / CHEMOTHERAPY N COPD N Other # 2 N BLOOD DISEASES N SURGERY N EAR OR HEARING PROBLEMS N MUMPS N BOWEL PROBLEMS N DEPRESSION (INCLUDING POST ) N STROKE/TIA N ULCERS N BENIGN PROSTATIC HYPERPLASIA N MEASLES N MYOCARDIAL INFARCTION N OBESITY N GERD/NAUSEA Y ANEURYSM N URINARY/BLADDER/KIDNEY PROBLEMS N INPATIENT PSYCH CARE N CORONARY ARTERY DISEASE (CAD) N ADDICTION CONCERNS N Impotence N ENDOMETRIOSIS N USE OF BLOOD THINNERS N SKIN PROBLEMS N GASTROINTESTINAL DISORDER N PERIPHERAL VASCULAR DISEASE N MUSCLE,JOINT OR BONE PROBLEMS N GASTROINTESTINAL BLEEDING N BLOOD CLOTS N ASTHMA N CATARACTS N ERECTILE DYSFUNCTION N VARICOSITIES N GI PROBLEMS N Low Testosterone N INFERTILITY N AIDS/HIV N LIVER DISEASE N MALE HYPOGONADISM N HYPERTENSION Y Deficiency N ANXIETY DISORDER N BLOOD TRANSFUSION N ANEMIA/BLOOD DISORDER N CHRONIC EAR INFECTIONS N BRONCHITIS N TUBERCULOSIS N GLAUCOMA N FOOT PROBLEM N DIVERTICULITIS N SLEEP APNEA Y CHICKENPOX N INFECTIOUS DISEASE N PROSTATE N HEART ARRHYTHMIA N INSOMNIA N HIGH CHOLESTEROL / HYPERLIPIDEMIA N EYE PROBLEMS N HYPERTHYROIDISM N NEUROLOGICAL PROBLEMS N EDEMA N CHRONIC PAIN SYNDROME N HYPOTHYROIDISM N CONSTIPATION N CAROTID BLOCKAGE N BACK / NECK PROBLEMS Y HAVE [facility] ? N ATHEROSCLEROSIS N BREAST PROBLEMS N DIALYSIS N ECZEMA N OSTEOPOROSIS N ARTHRITIS Y NO SIGNIFICANT PAST MEDICAL HISTORY N APPENDICITIS N DIABETES, TYPE N BAD TEETH N ENT N HEARTBURN / REFLUX N AUTISM SPECTRUM DISORDER (ASD) N HEPATITIS / LIVER DISEASE N PULMONARY DISEASE N GOUT N SLEEP DISORDER N ALZHEIMER'S DISEASE N Brain Problems N DEMENTIA N HERPES N SEIZURES/EPILEPSY N HEADACHES/MIGRAINES Y VASCULAR DISEASE N PACEMAKER N Blood Disorder N DIZZINESS N HEART DISEASE/HEART PROBLEMS N KIDNEY DISEASE N MULTIPLE SCLEROSIS N CANCER: SPECIFY N CARDIAC ARRHYTHMIA N ANESTHESIA COMPLICATIONS N ATRIAL FIBRILLATION N Gall Stones N PULMONARY EMBOLISM N AUTOIMMUNE DISEASE N Gynecological HistoryNo gynecological history recorded. Obstetrics History GPAL:G 0 P 0 0 0 0 Immunizations Vaccine Type Date Status Note Provider Nam e and Address Organization Details Recorded Time Influenza, split virus, trivalent, preservative 6 completed Not Available [facility] 04/15/2022 06:01:53 SARS-COV-2 (COVID-19) vaccine, UNSPECIFIED 1 completed Not Available [facility] 04/15/2022 06:01:53 influenza, unspecified formulation 2 completed Not Available [facility] 04/15/2022 06:01:53 COVID-19, mRNA, LNP-S, bivalent, PF, 30 mcg/0.3 mL dose 2 completed Not Available [facility] 04/15/2022 06:01:53 SARS-COV-2 (COVID-19) vaccine, UNSPECIFIED 1 completed Not Available [facility] 04/15/2022 06:01:53 SARS-COV-2 (COVID-19) vaccine, UNSPECIFIED 1 completed Not Available [facility] 04/15/2022 06:01:54 Influenza, split virus, trivalent, preservative 3 completed Not Available [facility] 04/15/2022 06:01:54 Influenza, split virus, quadrivalent, PF 1 completed Not Available [facility] 04/15/2022 06:01:54 Influenza, split virus, quadrivalent, preservative 9 completed Not Available [facility] 04/15/2022 06:01:54 Influenza, split virus, quadrivalent, PF 8 completed Not Available [facility] 04/15/2022 06:01:54 Past Encounters Encounter ID Performer Location Encounter Start Date Encounter Closed Date Diagnosis/Indication Diagnosis SNOMED-CT Code Diagnosis ICD10 Code Diagnosis Note [id number] Tyson Talbert MD [facility] [facility] [place] [address] [facility] [address] , [place] [address] 04/23/2020 00:00:00 04/23/2020 16:18:10 [id number] [facility] [place] [address] [place] [address] 06/24/2020 00:00:00 06/25/2020 15:13:49 [id number] [facility] [place] [address] [place] [address] 07/29/2020 00:00:00 07/29/2020 12:06:06 [id number] [facility] [place] [facility] [place] [address] [facility] [address] , [place] [address] 08/20/2020 00:00:00 08/20/2020 16:05:27 [id number] [facility] [place] [address] [place] [address] 08/22/2020 00:00:00 08/27/2020 10:15:52 [id number] [facility] [place] [address] [place] [address] 10/14/2020 00:00:00 10/14/2020 13:00:24 [id number] [facility] _ATHENA_M IGRATION_ DEFAULT_1 _1 , 11/22/2020 00:00:00 11/25/2020 10:57:43 [id number] [facility] [place] [address] [place] [address] 11/28/2020 00:00:00 12/01/2020 13:22:48 [id number] [address] [facility] [facility] [place] [address] [place] [address] [place] [address] 12/27/2020 00:00:00 12/27/2020 16:43:35 [id number] Tyson Talbert MD [facility] Internal [facility] [place] [address] [place] [address] [place] [address] 05/06/2021 00:00:00 05/06/2021 16:08:33 [id number] Tyson Talbert MD [facility] Internal [facility] [place] [address] [place] [address] [place] [address] 10/07/2021 00:00:00 10/07/2021 15:54:05 [id number] [facility] [place] Internal [facility] [place] [address] [place] [address] [place] [address] 02/03/2022 00:00:00 02/03/2022 16:28:11 [id number] [facility] [place] [address] [place] [address] [place] [address] 06/09/2022 16:09:24 06/09/2022 16:44:59 Gastroesophageal reflux disease 282110129 K21.9 Chronic pain syndrome 37 0693787 G89.4 Hyperlipidemia 51573225 E78.5 Essential hypertension 51507833 I10 Long-term current use of opiate analgesic drug 7728085210 89882 Z79.891 Family his tory of malignant neoplasm 321254711 Z80.9 [id number] Tyson Talbert MD [facility] Internal [facility] [place] [address] [facility] [address] [address] 10/06/2022 16:15:14 10/06/2022 16:32:18 Chronic pain syndrome 182269659 G89.4 Essential hypertension 39456298 I10 Hyperlipidemia 62245093 E78.5 Gastroesop hageal reflux disease 394459282 K21.9 Obese class I [id number] 97049 E66.9 [id number] Tyson Talbert MD [facility] Internal [facility] Naima llmaria esther [address] [place] [address] [place] [address] 02/02/2023 12:10:57 02/02/2023 12:49:41 Chronic pain syndrome [id number] G89.4 Essential hypertension 89374713 I10 Hyperlipidemia 34899928 E78.5 Long-term current use of opiate analgesic drug [id number] 91332 Z79.630 [id number] Tyson Talbert MD [facility] Internal [facility] Naima llmaria esther [address] [facility] arash [place], [place] [address] 06/01/2023 12:12:18 06/01/2023 12:41:46 Adult health examination 247362050 Z00.00 Depression screening 171 594706 Z13.31 Essential hypertension 51870884 I10 Gastroesop hageal reflux disease 644777058 K21.9 Hyperlipidemia 30613549 E78.5 Obese class I [id number] 48056 E66.9 Chronic pain syndrome 37 0110416 G89.4 [id number] Tyson Talbert MD [facility] Internal Med Akhilvi llmaria esther [address] [place] [address] [address] 09/30/2023 12:14:33 09/30/2023 12:41:22 Essential hypertension 79128263 I10 Hyperlipidemia 34274586 E78.5 Gastroesop hageal reflux disease 134058151 K21.9 Obese class I [id number] 35160 E66.9 [id number] Tyson Talbert MD [facility] [place] Primary [facility] [place] [address] [place] [address] 02/03/2024 11:59:16 02/03/2024 14:13:54 Chronic pain syndrome 636568787 G89.4 Depressive disorder 3548 9007 F32.A Essential hypertension 38679674 I10 Gastroesop hageal reflux disease 258932572 K21.9 Hyperlipidemia 08616070 E78.5 [id number] Tyson Tal[address] MD [facility] Primary [facility] [place] [address] [place] [address] 06/08/2024 12:03:35 06/08/2024 12:32:49 Essential hypertension 96265727 I10 Hyperlipidemia 37921586 E78.5 Gastroesop hageal reflux disease 157903587 K21.9 Chronic pain syndrome 37 4411880 G89.4 Obese class I 1906344613 99431 E66.9 Long-term current use of opiate analgesic drug [id number] 92152 Z79.891 Health Concerns Section Related Observation LastModified by Organization Detai ls LastModified Time None Recorded Concern Status LastModified by Organization Details LastModified Time None Recorded Advance Directives Directive None Recorded Payers Encounter Date Sequence Insurance Name Policy Number Policy Hdez Covered Member ID Hdez Member ID Guarantor Name 02/02/2023 1 [employer] (POS II) [id number] Joby Elder [id number] Mayda D Elder 02/02/2023 2 [place] Mayda D Elder [id number] Mayda D Elder 06/01/2023 1 [employer] (POS [place]) [id number] Joby Elder [id number] Mayda D Elder 06/01/2023 2 [place] Mayda D Elder [id number] Mayda D Elder 09/30/2023 1 [employer] ([place]) [id number] Joby [id number] Mayda D Elder 09/30/2023 2 [place] Mayda Clarkeggins [id number] Mayda D Elder 02/03/2024 1 [facility] (POS II) [id number] Joby Elder [id number] Mayda D Elder 02/03/2024 2 [place] Mayda Clarkeggins [id number] Mayda D Elder 06/08/2024 1 [employer] (MEDICARE REPLACEMENT/A DVANTAGE - PPO) Mayda Nicholasins [id number] Mayda Elder Notes Date Note Type Note Provider Name and Address Organization Details Recorded Time 3 text/htm l Physical Examination This is a Obese Class I (According to BMI) 57 y/o female appearing in no distress Skin: Inspection of the exposed areas of the skin demonstrates no new suspicious lesions or discolorations. Head: Head is normal configuration with no new anatomical abnormalities. Eyes: External ocular muscles are intact. There is no conjunctival irritation or evidence of scleral icterus. Fundoscopy reveals no hemorrhages, exudates or other or retinal abnormalities. Visual matos to gross confrontation within normal limits .Funduscopy this somewhat limited because of the lighting conditions. ENT: Ears normal configuration with intact Tms. The visualized portion of the tympanic membranes appear to be normal with no redness - bulging - or other signs of inflammation. Hearing unchanged from previous examinations. Neck: The neck is supple with no nuchal rigidity. The carotid impulses are 2+ with normal upstrokes and no bruits or thrills. The trachea is midline with no deviation or tug. The thyroid is normal size and consistency with no masses, nodules or bruits. Lungs: Normal chest configuration. Normal chest mechanics during inspiration and expiration. Lungs are clear to auscultation and percussion. There no flaring of the costal margins. There is no dullness to percussion, egophony or other findings suggestive of either pleural fluid or consolidation. Heart: S1 and S2 normal duration and intensity. The PMI is not displaced. No murmurs , gallops, clicks, thrills or rubs. No left or right ventricular heave noted. Peripheral pulses are present bilaterally and unchanged from previous examinations. Abdomen: No abdominal distension. Good bowel sounds. No organomegaly or masses noted. No tenderness, guarding or rebound noted. No vascular pulsations or other masses. No hernias or other fascial defects are noted. No new wounds or scars from previous evaluations. Neurological: Gait is normal. Reflexes are symmetrical bilaterally with no evidence any localized muscular weakness in Upper extremities. There is a decreased patellar reflex on the right 2/4 with slight decrease in strength in the right quadriceps. Cranial nerves 2-12 are intact. Higher cognitive functions are normal Musculoskeletal: General inspection of the musculoskeletal system reveals no change in range of motion in the major joints. No swelling, redness or signs of any acute inflammation. No synovial thickening. Immunological: No lymphadenopathy in the cervical, supraclavicular, axillary, Epitrochlear, inguinal or popliteal areas. Tyson Talbert MD [address] [place] [address], [facility] [address], [place], [address], [place] [employer] [facility] 02/02/2023 12:47:01 4 text/htm l Patient Name: Mayda ElderDate Of Service: Wednesday ( 06.01.2023 ): 1965 Age: 58 There has been approximately a 2 lb weight gain since 02/02/2023. This represents approximately a 1.0% change in weight. Weight change attributable to lifestyle changes. Vital Signs:Blood Pressure: Sitting Rt. Arm 128/80Pulse: Sitting 88 /min and RegularRespiratory Rate: 12Height 65 in or 1.7 mWeight 197 lb or 89.4 kgBMI 32.8Temperature: 97 F or 36.1 CPulse Oximetry: 95 % at rest on no oxygen Chief Complaint: Addressed in HPI Problems or conditions discussed in the HPI were the only ones reviewed during the encounter.Only social and family history addressed in the HPI were reviewed during this encounter. Attendant(s): NoneConstitutional and Systemic Symptoms:none Medication Reconciliation: from medication list. Mhnurvcodcb23/31/2023: Echocardiogram demonstrates an estimated ejection fraction of 65%. Aortic and mitral valves appear to be normal structure. Normal-appearing tricuspid with trace try cuspid regurgitation. 10/30/2022: CT cervical spine demonstrate significant spondylolysis with previous postsurgical changes. No evidence of any high-grade central canal stenosis or other surgical type of lesions this time. 11/10/2022: Calcium cardiac score showed some minimal calcifications noted in the LAD etc. No significant calcium deposition is noted History of Present Illness In for a well patient check up. Last well patient evaluation was approximately one year. No interval complaints of any major medical problems. No hx of any chest pain, shortness of breath, nausea, vomiting, diarrhea or constitutional symptoms. Also being followed for other chronically monitored problems.Has Had A Mammogram already doneHas Had A Pap Smear already doneImmunizations Up To Date or refuses to takeNo Significant Change In Family HxColonoscopy or Cologuard: not dueFall Risk normalDepression Score: 0Hearing normalVision normalReviewed Smoking and Drug HistoryReviewed Immunization HistoryInstructed on importance of weight on diabetes, heart and other diseases aggravated by obesity. #1. Essential Hypertension: Stage: Stage I Interval Neurological Complaints no headaches, dizziness, weakness, visual changes, ataxia, aphasia and apraxia. No shortness of breath, orthopnea or cardiovascular symptoms. No other symptoms related to end organ damage. Pressure has been under excellent control. Currently normal. No other end organ symptoms or findings. Therapy reviewed regarding management of hypertension and includes salt restriction and hydrochlorothiazide #2. Type II Hypercholesterolaemia: Currently taking medication and tolerating well. No interval complaints of any muscle pain or arthralgia. No significant liver changes with medications. Last lipid panel: fair control. Therapy reviewed regarding treatment of cholesterol management and include diet and Atorvastatin Calcium. #3. Hx of esophageal reflux currently stable. Hx of Complications: none The severity, duration and intensity of symptoms have remained the same. Frequency: most meals Treatment consists medications taken on intermittent basis. Current therapy includes Protonix. There has been no nausea. No change in he frequency or intensity of symptoms. Has had no melena. Has had no . Discussed use of H2 antagonists and the possibility of trying to reduce the frequency of the use of any PPI inhibitors and try H2 antagonists to see if symptoms can be controlled with lease intensive therapy since a number of complications are associated with chronic prolonged use of PPI inhibitors. #4. Chronic pain management for chronic lumbar, knees and hips Since last examination somewhat improved Interval Testing: noneHas tried NSAIDS partial relief requiring additional medication. Pain Description: constant. 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 Current Average Morphine Milligram Approximate Equivalent: 30 mg approximated if taking full dosage daily. Recommend: NA.Benzodiazepines or other hypnotics: no.Alternative pain management modalities (acupuncture - behavior therapy- additional PT - SNRIs) have been discussed and have either been tried in the past or not acceptable alternatives to patient or not available in our location.Will kept medications the same.Urine Testing: not indicated and this time.Controlled substance database yes and no discrepancies or multiple prescribers noted. Pill counts when available have been acceptable. No other signs of any abuse.Patient reports condition is stable and is able to function with the medication. Denies any misuse or adverse effects.TREATMENT OBJECTIVE: Enhance ability to manage pain independently, improved function and sustain quality of life. Recommendations or alternative therapies and lifestyle changes are discussed on each visit. Has shown improvement inf functionality. Has been educated on the side effects,risks and any black box warnings. Has verbalized the dangers of some of the medications regarding driving and cooperating heavy machinery and have advised against this. #5. Hx of obesity. Currently Class 1 Obesity BMI 30-34.99. Has tried numerous dietary support and supplements with no benefit. Instructed on the health consequences of the obese status particularly cancer - diabetes and heart disease. Discussed new modalities of weight loss including GLP-1 medications that are used to treat diabetes. Potential candidate for bariatric surgery: No. Wishes to be evaluated by Dietary: No and was offered to be evaluated and instructed by homeland security program specialist on weight loss diet. Active Medication ListTrazodone 50 MG One DailyNorco 325 MG-7.5 MG (TABLET - ORAL) One Four Times DailyPremarin 1.25 MG (TABLET - ORAL) One DailyZanaflex 4 MG Once DailyLyrica 150 MG (CAPSULE - ORAL) One Am And Two HsCpap As DirectedAtorvastatin Calcium 20 MG (TABLET - ORAL) One DailyLosartan Potassium 100 MG TABLET Once DailyDuloxetin Hydrochloride 30 MG CAPSULE, DELAYED RELEASE Once DailyDoxycycline 50 MG CAPSULE One DailyAzelaic Acid .15 G/G GEL Once DailyTretinoin .05 G/100G GEL One DailyProtonix 40 MG (TABLET, DELAYED RELEASE - ORAL) Once DailyHydrochlorothiazide 12.5 MG TABLET Once Daily Adverse Drug Reactions ReviewedDarvocet N 100 Nightmares; Confusion Vaccination and Eichmqmhitbd8669-82 Covid Booster Spaqqx4399-92 Oryhvtjcg0203-30 Covid Rwqwqn5275-27 Shingrix Surgical Icyiryu1432-25 Neurostimulator Zpeqkdn1591-43 Bladder Jviipvqsskopmorw2995-05 Spinal Piznkcytqk3866-10 Lumbar Yyfxsj6886-49 Lumbar FJI3624-59 Total Ebjsjnbysfwx6912-02 Cervical Laminectomy Preventative Jyqtmvf2302/02/2023 ALBUMIN 4.4 G/DL12/23/2022 MAMMOGRAM COLONOSCOPY (10 YEARS) 01/25/2028 Social HistorySmoked up to 1/2 pack daily for 15 years. Quit 2002. 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 Family HistoryMother living 83 HTNFather 46 from ASHD and complications of CABGOne brother and one sister both living and in good health Tyson Talbert MD [address] [facility], [facility] [address], [place], [address], [facility] [employer] 06/01/2023 12:36:38 4 text/htm l Patient Name: Mayda NicholaspopDate Of Service: September ( 09.30.2023 ): 1965 Age: 58 There has been approximately a 2 lb weight gain since 06/01/2023. This represents approximately a 1.0% change in weight. Weight change attributable to lifestyle changes. Vital Signs:Blood Pressure: Sitting Rt. Arm 118/86Pulse: Sitting 89 /min and RegularRespiratory Rate: 14Height 65 in or 1.7 mWeight 199 lb or 90.3 kgBMI 33.1Temperature: 97.7 F or 36.5 CPulse Oximetry: 97 % at rest on no oxygen Chief Complaint: Addressed in HPI Problems or conditions discussed in the HPI were the only ones reviewed during the encounter.Only social and family history addressed in the HPI were reviewed during this encounter. Attendant(s): NoneConstitutional and Systemic Symptoms:none Medication Reconciliation: from medication list. Vuqhbiymhky68/31/2023: Echocardiogram demonstrates an estimated ejection fraction of 65%. Aortic and mitral valves appear to be normal structure. Normal-appearing tricuspid with trace try cuspid regurgitation. 10/30/2022: CT cervical spine demonstrate significant spondylolysis with previous postsurgical changes. No evidence of any high-grade central canal stenosis or other surgical type of lesions this time. 11/10/2022: Calcium cardiac score showed some minimal calcifications noted in the LAD etc. No significant calcium deposition is noted History of Present Illness #1. Essential Hypertension: Stage: Stage I Interval Neurological Complaints no headaches, dizziness, weakness, visual changes, ataxia and aphasia. No shortness of breath, orthopnea or cardiovascular symptoms. No other symptoms related to end organ damage. Pressure has been under excellent control. Currently normal. No other end organ symptoms or findings. Therapy reviewed regarding management of hypertension and includes salt restriction and Hydrochlorothiazide and Losartan Potassium. #2. Type II Hypercholesterolaemia: Currently taking medication and tolerating well. No interval complaints of any muscle pain or arthralgia. No significant liver changes with medications. Last lipid panel: fair control. Therapy reviewed regarding treatment of cholesterol management and include diet and Atorvastatin Calcium. #3. Hx of esophageal reflux currently stable. Hx of Complications: none The severity, duration and intensity of symptoms have improved. Frequency: most meals Treatment consists medications taken on intermittent basis. Current therapy includes Protonix. There has been no nausea, eructation, vomiting, hematemesis, dysphagia, velopharyngeal insufficiency and odynophagia. No change in he frequency or intensity of symptoms. Has had no melena. Has had no . Discussed use of H2 antagonists and the possibility of trying to reduce the frequency of the use of any PPI inhibitors and try H2 antagonists to see if symptoms can be controlled with lease intensive therapy since a number of complications are associated with chronic prolonged use of PPI inhibitors. #4. Hx of obesity. Currently Class 1 Obesity BMI 30-34.99. Has tried numerous dietary support and supplements with no benefit. Instructed on the health consequences of the obese status particularly cancer - diabetes and heart disease. Discussed other modalities of weight loss GLP-1 medications that are used to treat diabetes. Potential candidate for bariatric surgery: No. Wishes to be evaluated by Dietary: No and was offered to be evaluated and instructed by homeland security program specialist on weight loss diet. Active Medication ListTrazodone 50 MG One DailyNorco 325 MG-7.5 MG (TABLET - ORAL) One Four Times DailyPremarin 1.25 MG (TABLET - ORAL) One DailyZanaflex 4 MG Once DailyLyrica 150 MG (CAPSULE - ORAL) One Am And Two HsCpap As DirectedAtorvastatin Calcium 20 MG (TABLET - ORAL) One DailyLosartan Potassium 100 MG TABLET Once DailyDuloxetin Hydrochloride 30 MG CAPSULE, DELAYED RELEASE Once DailyDoxycycline 50 MG CAPSULE One DailyAzelaic Acid .15 G/G GEL Once DailyTretinoin .05 G/100G GEL One DailyProtonix 40 MG (TABLET, DELAYED RELEASE - ORAL) Once DailyHydrochlorothiazide 12.5 MG TABLET Once Daily Adverse Drug Reactions ReviewedDarvocet N 100 Nightmares; Confusion Vaccination and Gcuawdzsnuzs9701-84 Covid Booster Ceyuvj2089-29 Edcmjueym3526-37 Covid Abqiiu6858-28 Shingrix Surgical Wsxvbmc1939-18 Neurostimulator Tfudaxj8436-76 Bladder Ebnsazhkrqjsbney9443-57 Spinal Lennnrjxgu3667-01 Lumbar Flfdhz4383-33 Lumbar YCW6568-41 Total Nehpijjedsex8944-39 Cervical Laminectomy Preventative Testing( ) 06/22/2023 Albumin 4.1 G/DL( ) 06/22/2023 DEXA Scan (Normal)( ) 12/23/2022 Mammogram 12/24/2023( ) 01/24/2018 Colonoscopy (10 Years) 01/25/2028 Social HistorySmoked up to 1/2 pack daily for 15 years. Quit 2002. 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 Family HistoryMother living 83 HTNFather 46 from ASHD and complications of CABGOne brother and one sister both living and in good health TEST RESULT RANGE UNITSCBC/COMPLETE BLD COUNT W/DIFF Date: 06/22/2023WHITE BLOOD CELLS 4.7 4.2-10.8 X10'3/ULHEMOGLOBIN 13.3 12.0-15.6 G/DLHEMATOCRIT 38.2 35.7-45.7 %PLATELETS 161 150-400 X10'3/ULCOMPREHENSIVE METABOLIC PANEL Date: 06/22/2023SODIUM 137 137-145 MMOL/LPOTASSIUM 4.0 3.5-5.1 MMOL/LGLUCOSE 94 70-99 MG/DLBUN 15 8-19 MG/DLCREATININE 0.67 0.66-1.25 MG/DLGFR >60ALKALINE PHOSPHATASE 48 38-126 U/LALANINE AMINOTRANSFERASE 35 0-35 U/LASPARTATE AMINOTRANSFERASE 41 15-37 U/LBILIRUBIN, TOTAL 0.50 0.20-1.30 MG/DLLIPID PANEL Date: 4CHOLESTEROL 128 140-199 MG/DLTRIGLYCERIDES 136 0-150 MG/DLHDL CHOLESTEROL 59 40- MG/DLLDL CHOLESTEROL, CALCULATED 42 0-130 MG/DL Tyson Talbert MD [address] [facility] [address], [place], [address], [facility] [employer] 09/30/2023 12:47:16 4 text/htm l Patient Name: Mayda ElderDate Of Service: January ( 02.03.2024 ): 1965 Age: 58 Vital Signs:Blood Pressure: Sitting Rt. Arm 126/88Pulse: Sitting 80 /min and RegularRespiratory Rate: 16Height 65 in or 1.7 mWeight 198 lb or 89.8 kgBMI 32.9Temperature: 97 F or 36.1 CPulse Oximetry: 95 % at rest on no oxygen Chief Complaint: Addressed in HPI Problems or conditions discussed in the HPI were the only ones reviewed during the encounter.Only social and family history addressed in the HPI were reviewed during this encounter. Attendant(s): NoneConstitutional and Systemic Symptoms:none Medication Reconciliation: from medication list. Zpqsbslchvu17/31/2023: Echocardiogram demonstrates an estimated ejection fraction of 65%. Aortic and mitral valves appear to be normal structure. Normal-appearing tricuspid with trace try cuspid regurgitation. 10/30/2022: CT cervical spine demonstrate significant spondylolysis with previous postsurgical changes. No evidence of any high-grade central canal stenosis or other surgical type of lesions this time. 11/10/2022: Calcium cardiac score showed some minimal calcifications noted in the LAD etc. No significant calcium deposition is noted History of Present Illness #1. Essential Hypertension: Stage: Stage I Interval Neurological Complaints no headaches. No shortness of breath, orthopnea or cardiovascular symptoms. No other symptoms related to end organ damage. Pressure has been under excellent control. Currently normal. No other end organ symptoms or findings. Therapy reviewed regarding management of hypertension and includes salt restriction and Losartan Potassium. #2. Hx of esophageal reflux currently stable. Hx of Complications: none The severity, duration and intensity of symptoms have improved. Frequency: most meals Treatment consists medications taken on a regular basis. Current therapy includes Protonix. There has been no nausea. No change in he frequency or intensity of symptoms. Has had no melena. Has had no . Discussed use of H2 antagonists NA. #3. Hx of depression currently stable. Pharmacological treatment : Duloxetin Hydrochloride . Suicidal thoughts or ideas: None Loss of appetite: No Sleep Disturbance: No Hallucinations: No Is currently seeing no one. Discussed possibility of decreasing and weaning off medication. Feels that current regimen is working fine and wishes not to change the current treatment regimen. No contraindication to continue current therapy. #4. Chronic pain management for chronic generalized joint pain Since last examination no significant change since last examination Interval Testing: noneHas tried NSAIDS constant, exacerbated by activity and interferes with enjoyment and ability to perform activities of daily living. Pain Description: No. 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 Current Average Morphine Milligram Approximate Equivalent: NA mg approximated if taking full dosage daily. Recommend: no.Benzodiazepines or other hypnotics: kept medications the same.Alternative pain management modalities (acupuncture - behavior therapy- additional PT - SNRIs) have been discussed and have either been tried in the past or not acceptable alternatives to patient or not available in our location.Will not indicated and this time.Urine Testing: yes and no discrepancies or multiple prescribers noted.Controlled substance database Class 1 Obesity BMI 30-34.99. Pill counts when available have been acceptable. No other signs of any abuse.Patient reports condition is stable and is able to function with the medication. Denies any misuse or adverse effects.TREATMENT OBJECTIVE: Enhance ability to manage pain independently, improved function and sustain quality of life. Recommendations or alternative therapies and lifestyle changes are discussed on each visit. Has shown improvement inf functionality. Has been educated on the side effects,risks and any black box warnings. Has verbalized the dangers of some of the medications regarding driving and cooperating heavy machinery and have advised against this. #5. Hx of obesity. Currently no. Has tried numerous dietary support and supplements with no benefit. Instructed on the health consequences of the obese status particularly cancer - diabetes and heart disease. Discussed other modalities of weight loss Yes . Potential candidate for bariatric surgery: No and was offered to be evaluated and instructed by homeland security program specialist on weight loss diet. Wishes to be evaluated by Dietary: No and was offered to be evaluated and instructed by homeland security program specialist on weight loss diet. Active Medication ListTrazodone 50 MG One DailyNorco 325 MG-7.5 MG (TABLET - ORAL) One Four Times DailyPremarin 1.25 MG (TABLET - ORAL) One DailyZanaflex 4 MG Once DailyLyrica 150 MG (CAPSULE - ORAL) One Am And Two HsCpap As DirectedAtorvastatin Calcium 20 MG (TABLET - ORAL) One DailyLosartan Potassium 100 MG TABLET Once DailyDuloxetin Hydrochloride 30 MG CAPSULE, DELAYED RELEASE Once DailyDoxycycline 50 MG CAPSULE One DailyAzelaic Acid .15 G/G GEL Once DailyTretinoin .05 G/100G GEL One DailyProtonix 40 MG (TABLET, DELAYED RELEASE - ORAL) Once DailyHydrochlorothiazide 12.5 MG TABLET Once Daily Adverse Drug Reactions ReviewedDarvocet N 100 Nightmares; Confusion Vaccination and Immunization( ) 2024-01 INFLUENZA( ) 2019-12 SHINGRIX( ) 2020- COVID PFIZER( ) 2024-01 COVID BOOSTER PFIZER Surgical Ctjqcxl1397-43 Neurostimulator Lkordmx0641-00 Bladder Tkqriqfstaneenky0967-89 Spinal Amaxrcpjyw6262-27 Lumbar Yynseh4750-14 Lumbar PWH9740-54 Total Qxzdnxdcnibp1196-88 Cervical Laminectomy Preventative Testing( ) 06/22/2023 Albumin 4.1 G/DL( ) 06/22/2023 DEXA Scan (Normal)(X) 12/23/2022 Mammogram 12/24/2023( ) 01/24/2018 Colonoscopy (10 Years) 01/25/2028 Social HistorySmoked up to 1/2 pack daily for 15 years. Quit 2002. 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 Family HistoryMother living 83 HTNFather 46 from ASHD and complications of CABGOne brother and one sister both living and in good health Active Medication ListTrazodone 50 MG One DailyNorco 325 MG-7.5 MG (TABLET - ORAL) One Four Times DailyPremarin 1.25 MG (TABLET - ORAL) One DailyZanaflex 4 MG Once DailyLyrica 150 MG (CAPSULE - ORAL) One Am And Two HsCpap As DirectedAtorvastatin Calcium 20 MG (TABLET - ORAL) One DailyLosartan Potassium 100 MG TABLET Once DailyDuloxetin Hydrochloride 30 MG CAPSULE, DELAYED RELEASE Once DailyDoxycycline 50 MG CAPSULE One DailyAzelaic Acid .15 G/G GEL Once DailyTretinoin .05 G/100G GEL One DailyProtonix 40 MG (TABLET, DELAYED RELEASE - ORAL) Once DailyHydrochlorothiazide 12.5 MG TABLET Once Daily Adverse Drug Reactions ReviewedDarvocet N 100 Nightmares; Confusion Vaccination and Immunization( ) 2024-01 INFLUENZA( ) 2019-12 SHINGRIX( ) 2020-05 COVID PFIZER( ) 2024-01 COVID BOOSTER PFIZER Surgical Riynrue5018-62 Neurostimulator Fxtkwab4780-10 Bladder Cmigosjelqgdzngr1008-68 Spinal Lhqcpnhvog9815-94 Lumbar Mceakj7861-23 Lumbar NGO5449-15 Total Yferjagubkif6195-22 Cervical Laminectomy Preventative Testing( ) 06/22/2023 Albumin 4.1 G/DL( ) 06/22/2023 DEXA Scan (Normal)(X) 12/23/2022 Mammogram 12/24/2023( ) 01/24/2018 Colonoscopy (10 Years) 01/25/2028 Social HistorySmoked up to 1/2 pack daily for 15 years. Quit 2002. 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 Family HistoryMother living 83 HTNFather 46 from ASHD and complications of CABGOne brother and one sister both living and in good health TEST RESULT RANGE UNITSCBC/COMPLETE BLD COUNT W/DIFF Date: 06/22/2023WHITE BLOOD CELLS 4.7 4.2-10.8 X10'3/ULHEMOGLOBIN 13.3 12.0-15.6 G/DLHEMATOCRIT 38.2 35.7-45.7 %PLATELETS 161 150-400 X10'3/ULCOMPREHENSIVE METABOLIC PANEL Date: 06/22/2023SODIUM 137 137-145 MMOL/LPOTASSIUM 4.0 3.5-5.1 MMOL/LGLUCOSE 94 70-99 MG/DLBUN 15 8-19 MG/DLCREATININE 0.67 0.66-1.25 MG/DLREFERENCE RANGE: AVERAGE GFR HEALTHY ADULT: >60 ML/MIN/1.73 [id number] PHOSPHATASE 48 38-126 U/LALANINE AMINOTRANSFERASE 35 0-35 U/LASPARTATE AMINOTRANSFERASE 41 15-37 U/LLIPID PANEL Date: 06/22/2023HOLESTEROL 128 140-199 MG/DLTRIGLYCERIDES 136 0-150 MG/DLHDL CHOLESTEROL 59 40- MG/DLLDL CHOLESTEROL, CALCULATED 42 0-130 MG/DLT4 FREE Date: 06/22/2023FREE T4 0.83 0.78-2.19 NG/DLTSH Date: 06/22/2023THYROID-STIMULATIN G HORMONE 1.920 0.465-4.680 UIU/MLMAGNESIUM Date: 06/22/2023MAGNESIUM 1.7 1.6-2.3 MG/DLVITAMIN B12 (COBALAMIN) Date: 06/22/2023VB12 [phone] PG/ML Tyson Talbert MD [address] [facility], [facility] [address], [place], [address], [facility] [employer] [facility] 02/03/2024 13:05:10 5 text/htm l Patient Name: Mayda ClarkeminaDate Of Service: May ( 06.08.2024 ): 1965 Age: 59 There has been approximately a 8 lb weight loss since 02/03/2024. This represents approximately a 4.0% change in weight. Weight change attributable to lifestyle changes. Vital Signs:Blood Pressure: Sitting Rt. Arm 132/78Pulse: Sitting 96 /min and RegularRespiratory Rate: 16Height 65 in or 1.7 mWeight 190 lb or 86.2 kgBMI 31.6Temperature: 97 F or 36.1 CPulse Oximetry: 96 % at rest on no oxygen Chief Complaint: Addressed in HPI Problems or conditions discussed in the HPI were the only ones reviewed during the encounter.Only social and family history addressed in the HPI were reviewed during this encounter. Attendant(s): NoneConstitutional and Systemic Symptoms:none Medication Reconciliation: from medication list. Mqglsswlntp11/31/2023: Echocardiogram demonstrates an estimated ejection fraction of 65%. Aortic and mitral valves appear to be normal structure. Normal-appearing tricuspid with trace try cuspid regurgitation. 10/30/2022: CT cervical spine demonstrate significant spondylolysis with previous postsurgical changes. No evidence of any high-grade central canal stenosis or other surgical type of lesions this time. 11/10/2022: Calcium cardiac score showed some minimal calcifications noted in the LAD etc. No significant calcium deposition is noted History of Present Illness #1. Essential Hypertension: Stage: Stage I Interval Neurological Complaints no headaches, dizziness, weakness, visual changes, ataxia, aphasia and apraxia. No shortness of breath, orthopnea or cardiovascular symptoms. No other symptoms related to end organ damage. Pressure has been under excellent control. Currently normal. No other end organ symptoms or findings. Therapy reviewed regarding management of hypertension and includes salt restriction and Hydrochlorothiazide and Losartan Potassium. #2. Type II Hypercholesterolaemia: Currently taking medication and tolerating well. No interval complaints of any muscle pain or arthralgia. No significant liver changes with medications. Last lipid panel: fair control. Therapy reviewed regarding treatment of cholesterol management and include diet and Atorvastatin Calcium. #3. Hx of esophageal reflux currently stable. Hx of Complications: none The severity, duration and intensity of symptoms have improved. Frequency: most meals Treatment consists medications taken on intermittent basis. Current therapy includes Protonix. There has been no nausea. No change in he frequency or intensity of symptoms. Has had no melena. Has had no . Discussed use of H2 antagonists and the possibility of trying to reduce the frequency of the use of any PPI inhibitors and try H2 antagonists to see if symptoms can be controlled with lease intensive therapy since a number of complications are associated with chronic prolonged use of PPI inhibitors. #4. Chronic pain management for chronic lumbar Since last examination somewhat improved Interval Testing: noneHas tried NSAIDS partial relief requiring additional medication. Pain Description: constant, exacerbated by activity and interferes with enjoyment and ability to perform activities of daily living. 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 Current Average Morphine Milligram Approximate Equivalent: 30 mg approximated if taking full dosage daily. Recommend: NA.Benzodiazepines or other hypnotics: no.Alternative pain management modalities (acupuncture - behavior therapy- additional PT - SNRIs) have been discussed and have either been tried in the past or not acceptable alternatives to patient or not available in our location. Once again address the possibility that these medications may cause some cognitive impairment at times. Has noticed no cognitive impairment. Instructed to let us know if any of the conditions arise I will need to consider reducing or stopping certain medication.Will kept medications the same.Urine Testing: will be performed and patient instructed that failure of testing within a 24 hour period from time of order may result in termination of medication.Controlled substance database yes and no discrepancies or multiple prescribers noted. Pill counts when available have been acceptable. No other signs of any abuse.Patient reports condition is stable and is able to function with the medication. Denies any misuse or adverse effects.TREATMENT OBJECTIVE: Enhance ability to manage pain independently, improved function and sustain quality of life. Recommendations or alternative therapies and lifestyle changes are discussed on each visit. Has shown improvement inf functionality. Has been educated on the side effects,risks and any black box warnings. Has verbalized the dangers of some of the medications regarding driving and cooperating heavy machinery and have advised against this. #5. Hx of obesity. Currently Class 1 Obesity BMI 30-34.99. Has tried numerous dietary support and supplements with no benefit. Instructed on the health consequences of the obese status particularly cancer - diabetes and heart disease. Discussed other modalities of weight loss no . Potential candidate for bariatric surgery: No. Wishes to be evaluated by Dietary: No and was offered to be evaluated and instructed by homeland security program specialist on weight loss diet. Active Medication ListTrazodone 50 MG One DailyNorco 325 MG-7.5 MG (TABLET - ORAL) One Four Times DailyPremarin 1.25 MG (TABLET - ORAL) One DailyZanaflex 4 MG Once DailyLyrica 150 MG (CAPSULE - ORAL) One Am And Two HsCpap As DirectedAtorvastatin Calcium 20 MG (TABLET - ORAL) One DailyLosartan Potassium 100 MG TABLET Once DailyDuloxetin Hydrochloride 30 MG CAPSULE, DELAYED RELEASE Once DailyDoxycycline 50 MG CAPSULE One DailyAzelaic Acid .15 G/G GEL Once DailyTretinoin .05 G/100G GEL One DailyProtonix 40 MG (TABLET, DELAYED RELEASE - ORAL) Once DailyHydrochlorothiazide 12.5 MG TABLET Once Daily Adverse Drug Reactions ReviewedDarvocet N 100 Nightmares; Confusion Vaccination and Immunization( ) 2024-01 INFLUENZA( ) 2019-12 SHINGRIX( ) 2020-05 COVID PFIZER( ) 2024-01 COVID BOOSTER PFIZER Surgical Wpqxepy3330-55 Neurostimulator Wagclkq2909-47 Bladder Nujyxflpwpnknjyn2292-08 Spinal Iwebwjglqi9468-28 Lumbar Kgnbum7146-88 Lumbar FCO2498-08 Total Hkvmpeiprrdn8882-77 Cervical Laminectomy Preventative Testing( ) 02/03/2024 Albumin 4.2 G/DL( ) 06/22/2023 DEXA Scan (Normal)(X) 12/23/2022 Mammogram 12/24/2023( ) 01/24/2018 Colonoscopy (10 Years) 01/25/2028 Social HistorySmoked up to 1/2 pack daily for 15 years. Quit 2002. 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 Family HistoryMother living 83 HTNFather 46 from ASHD and complications of CABGOne brother and one sister both living and in good health Tyson Talbert MD [address] [facility], [facility] [address], [place], [address], [place] [employer] [facility] 06/08/2024 12:33:24 OBGyn Episode No OBEpisode recorded.
[2024-06-21 09:16] LABS: Basophils Percent Auto 0.2 % (0.2-1.2); Eosinophils Absolute Auto 0.1 K/mm3 (0-0.3); Hematocrit 39.8 % (37.0-47.0); Hemoglobin 13.3 g/dL (12.0-15.0); Immature Granulocyte Absolute 0.01 K/mm3 (0.00-0.031); Immature Granulocyte Percent A 0.2 % (0-0.5); Lymphocytes Absolute Auto 1.91 K/mm3 (0.9-3.2); Lymphocytes Percent Auto 43.3 % (18.3-44.2); Mean Corpuscular HGB Conc 33.4 g/dl (32-36); Mean Corpuscular Hemoglobin 30.9 pg (26-34); Mean Corpuscular Volume 92.3 fl (80-100); Mean Platelet Volume 10.2 fl (7.4-10.4); Monocytes Absolute Auto 0.4 K/mm3 (0.1-0.6); Monocytes Percent Auto 9.3 % (2.6-8.5); Platelet Count Result 150 k/mm3 (150-375); Red Blood Count 4.31 M/mm3 (4.2-5.4); Red Cell Distribution Width 12.7 % (11.5-14.5); White Blood Count 4.4 K/mm3 (4.5-10.0)
[2024-06-21 09:31] LABS: Alanine Aminotransferase 29 U/L (6-35); Albumin Level 4.2 g/dL (3.5-5.1); Alkaline Phosphatase 44 U/L (38-126); Anion Gap 6 mmol/L (4-12); Aspartate Amino Transferase 33 U/L (14-36); Bilirubin,Total 0.5 mg/dL (0.2-1.3); Blood Urea Nitrogen 14 mg/dL (7-17); Calcium 9.4 mg/dL (8.4-10.2); Carbon Dioxide 30 mmol/L (22-30); Chloride 101 mmol/L (98-107); Cholesterol 132 mg/dL (0-200); Estimated Glomerular Filt Rate > 60; Glucose 88 mg/dL (65-110); HDL Direct 54 mg/dL; Potassium 3.9 mmol/L (3.4-5.0); Sodium 137 mmol/L (137-145); Triglycerides 178 mg/dL (<150)
[2024-06-21 09:42] LABS: LDL Cholesterol Direct 44 mg/dL
[2024-06-21 09:59] LABS: Free T4 Free Thyroxine 0.72 ng/dL (0.78-2.19)
== END 2024-06-21 08:31 | disposition home or self-care (01) ==
PROVIDERS: PCP Internal Medicine; Visit Provider Internal Medicine
DX: I10 Essential (primary) hypertension (principal)
CPT/HCPCS: 36415; 80053; 80061; 84439; 84443; 85025

== ENCOUNTER 2024-11-03 11:31 | Outpatient (CLI) | payer MEDICARE, SELFPAY ==
--- OUTSIDE RECORDS SUMMARY | 2018-08-02 | XMS_ITS | Encounter Summary ---
Author Organization [facility] Healthcare Address [address] [place] [address] Care Team Providers Care Dairy Inspector Name Role Phone Tyson Talbert MD Primary Care Provider Reason for Visit * Diagnostic Imaging (Routine) - Closed Specialty Diagnoses / Procedures Referred By Contac t Referred To Contact Diagnoses Screening mammogram, encounter for Procedures Breast Imaging Screening Outside Reference Referral, Self Referral ID Status Reason Start Date Expiration Date Visits Re quested Visits Authorized [id number] Closed 08/05/2021 09/04/2022 1 1 Encounter Details Date Type Department Care Team (Late st Contact Info) Description 08/02/2018 Hospital Encounter [facility] [address] [place] [id number] Social History Tobacco Use Types Packs/Day Years Used Date Smoking Tobacco: Former Smokeless Tobacco: Never Alcohol Use Standard Drinks/Week Comments Not Currently 0 (1 standard drink = 0.6 oz pur e alcohol) Personal Safety Answer Date Recorded Have you ever been in or are you currently in a harmful physical or emotional relationship or is someone making you feel afraid or unsafe? Denies 11/02/2024 Comments No Sex and Gender Information Value Date Recorded Sex Assigned at Not on file Legal Sex Female 2:19 PM GAS EXAMINER Gender Identity Female 12/23/2022 11:06 AM GAS EXAMINER Sexual Orientation Straight 12/23/2022 11 :06 AM GAS EXAMINER documented as of this encounter Plan of Treatment Not on file documented as of this encounter Goals Goal Patient Goal Type Associated Problems Recent Progress Patient-Stated? Author CCM Chronic Pain Care Plan Chronic Care Management No Soraida Lim RN Note: Problem: Chronic Pain Goals: 1. Minimize further functional decline 2. Maximize quality of life 3. Control pain Strategies: - Activity/exercise program recommendation - Conservative stepwise pain medicine strategy with multi-disciplinary approach - Recommend healthy lifestyle strategies and compensatory methods as needed Reduce the likelihood of falling Lifestyle Soraida Anderson, RN Note: Below are four things you can do to prevent falls: 1. Begin an exercise program to improve your leg strength & balance 2. Ask your doctor or pharmacist to review your medicines 3. Get annual eye check-ups & update your eyeglasses 4. Make your home safer by: Removing clutter & tripping hazards Putting railings on all stairs & adding grab bars in the bathroom Having good lighting, especially on stairs Contact your local community or [facility] for information on exercise, fall prevention programs, or options for improving home safety. documented as of this encounter Procedures Procedure Name Priority Date/Time Associated Diagnosis Comments BREAST IMAGING MG SCREENING OUTSIDE REFERENCE Schedule Routine, Read Routine (OP Routine) 08/02/2018 12:00 AM CDT Screening mammogram, encounter for documented in this encounter Results * Breast Imaging Screening Outside Reference (08/02/2018 12:00 AM CDT) Impressions [facility] - 08/05/2021 11:09 AM CDT These images are for Reference purposes only and have not been reviewed by [facility]. There will be no report generated by a [facility] Radiologist. Narrative [facility]MO[facility] - 08/05/2021 11:09 AM CDT EXAMINATION: Images For Reference Purposes Only us Self Referral IMG MAMMO PROCEDURES Final Resul t [facility] documented in this encounter Visit Diagnoses Not on filedocumented in this encounter Care Teams Dairy Inspector Relationship Specialty Start Date End Date Tyson Talbert MD PCP - General 06/08/16 documented as of this encounter
--- OUTSIDE RECORDS SUMMARY | 2024-11-02 13:14 | XMS_ITS | Encounter Summary ---
Author Organization [facility] Address [address] [place] [address] Care Team Providers Care Transportation Program Director Name Role Phone Tyson Talbert MD Primary Care Provider Reason for Referral * Diagnostic Imaging (Routine) - Closed Specialty Diagnoses / Procedures Referred By Contac t Referred To Contact Radiology Diagnoses Radiculopathy of cervical region Procedures IR Epidural Injection Cervical W Guidance (Interlaminar) Lori Aguila MD [address] [employer] [address] [place] [address] Phone: tel: fax: [address] [address] Referral ID Status Reason Start Date Expiration Date Visits Re quested Visits Authorized [id number] Closed 10/30/2024 01/28/2025 1 1 Reason for Visit * Diagnostic Imaging (Routine) - Closed Specialty Diagnoses / Procedures Referred By Contac t Referred To Contact Radiology Diagnoses Radiculopathy of cervical region Procedures IR Epidural Injection Cervical W Guidance (Interlaminar) Lori Aguila MD [address] [employer] [address] [place] [address] Phone: tel: fax: [address] [address] Referral ID Status Reason Start Date Expiration Date Visits Re quested Visits Authorized [id number] Closed 10/30/2024 01/28/2025 1 1 Encounter Details Date Type Department Care Team (Latest Contact Info) Description 11/02/2024 1:14 PM CDT - 11/02/2024 11:59 PM CDT Hospital Encounter [facility] [address] [place] [address] Cody Callahan MD [address] [facility] [address] [place] [address] Radiculopathy of cervical region (Primary Dx) Discharge Disposition: Discharge to home or self care Social History Tobacco Use Types Packs/Day Years [...] on file Legal Sex Female 2:19 PM MANAGER ACTION Gender Identity Female 12/23/2022 11:06 AM MANAGER ACTION Sexual Orientation Straight 12/23/2022 11 :06 AM MANAGER ACTION documented as of this encounter Last Filed Vital Signs Vital Sign Reading Time Taken Comments Blood Pressure 145/90 11/02/2024 2:34 PM CDT Pulse 90 11/02/2024 2:34 PM CDT Temperature - - Respiratory Rate 16 11/02/2024 2:34 PM CDT Oxygen Saturation 96% 11/02/2024 2:34 PM CDT Inhaled Oxygen Concentration - - Weight - - Height - - Body Mass Index - - documented in this encounter Discharge Instructions * Patient Instructions* Cody Callahan MD - 11/02/2024 2:00 PM CDT Post Procedure Instructions You received an epidural steroid injection to your cervical spine. Your injection included: Lidocaine (numbing medicine). The numbing medicine usually lasts for 30- 45 minutes. During this time, your leg may feel weak and numb due to the effects of the numbing medicine. If this occurs, it is important to stay safe and do not stand or walk without assistance until the numbing medicine wears off. Do not drive for one hour after the injection. Betamethasone (steroid medicine for inflammation and pain). The steroid will start working within the next three to five days and can take up to two weeks for the full effect. When you get home: Resume your medicine including any blood thinner you held prior to the injection. Resume your normal diet For soreness, you may place an ice pack once an hour at the injection site for 15-20 minutes. You may shower. To prevent infection, do not take a bath, swim or sit in a Jacuzzi or hot tub for the next two days. Drink plenty of fluids to decrease a chance of a headache associated with steroids. You may resume your physical therapy appointments in 24 hours. Do not exercise for 24 hours, regular day-to-day activities are OK to perform. Diabetic patients: Steroid injections may lead to higher blood glucose (sugar) levels temporarily. Most commonly, the higher levels will return to normal within 1-3 days, though effects may last longer. Rises in blood glucose levels may be more significant in patients with poorly controlled type 2 diabetes (those with HbA1c levels greater than 7) and those with type I diabetes. Check fasting (shuttle threader prior to first meal of the day) and post-prandial (following meals) blood glucose levels. Contact the physician who manages your diabetes if your blood sugar is significantly elevated (for example, over 100mg/dL higher than your pre- injection level) or if blood sugar levels remain significantly elevated 2 days after receiving the injection, to discuss whether a change in medication dosing is needed. For urgent concerns after hours, call our exchange at [phone]. For all other questions regarding the procedure, please call our office at [phone]. Pain Diary Please fill out the pain diary chart below and call or message via [employer] the medical provider whorequested the injection, in two weeks. By how much has your pain improved after your injection? Therapeutic Injection: NOT IMPROVED IMPROVED A LITTLE IMPROVED A LITTLE MORE IMPROVED A LOT NO PAIN Immediately? 0% 20% 50% 80% 100% 6 hours after? 0% 20% 50% 80% 100% 24 hours after? 0% 20% 50% 80% 100% 4 days after? 0% 20% 50% 80% 100% 1 week after? 0% 20% 50% 80% 100% 10 days after? 0% 20% 50% 80% 100% 2 weeks after? 0% 20% 50% 80% 100% documented in this encounter Medications at Time of Discharge clobetasol (TEMOVATE) 0.05 % cream Apply sparingly to itchy area(s) twice a day as needed (do not use onface) 05/31/2015 clobetasol (TEMOVATE) 0.05 % ointment APPLY INTO AFFECTED AREA(S) on chest and buttock twice a day for itching, stop when no longer itchy. Do not use on face or groin or axilla. 05/24/2015 COVID-19 At-Home Test kit FOLLOW INSTRUCTIONS INCLUDED WITH THE PACKAGE. 06/10/[address] (CYMBALTA) 30 mg capsule Take by mouth daily 05/18/2022 HYDROcodone-acet aminophen (NORCO) 7.5-325 mg per tabletIndication s:Pain 0 07/09/2017 lidocaine (LIDODERM) 5 % Apply 2 patches for 12 hours on and 12 hours off. 180 patch 03/22/2024 LORazepam (ATIVAN) 1 mg tablet TAKE 1 TABLET BY MOUTH EVERYDAY AT BEDTIME 30 tablet 10/19/2024 losartan (COZAAR) 50 mg tablet Take 1 tablet (50 mg total) by mouth nightly 07/10/2022 metroNIDAZOLE (FLAGYL) 500 mg tablet Take 1 tablet (500 mg total) by mouth every 8 (eight) hours 06/30/[address] (PROTONIX) 40 mg EC tablet Take 40 mg by mouth daily 06/19/2019 polyethylene glycol (MIRALAX) 17 gram/dose powder daily. 05/18/2008 prednisoLONE acetate (PRED FORTE) 1 % ophthalmic suspension PLEASE SEE ATTACHED FOR DETAILED DIRECTIONS 05/19/2022 pregabalin (LYRICA) 75 mg capsuleIndicatio ns:Chronic lumbosacral pain TAKE 1 CAPSULE BY MOUTH 3 TIMES A DAY. 270 capsule 08/07/2024 PREMARIN 1.25 mg tablet 11/02/2017 timolol (TIMOPTIC) 0.5 % ophthalmic solution Administer 1 drop into both eyes every morning 03/06/2021 tiZANidine (ZANAFLEX) 4 mg tabletIndication s:Spasm of muscle TAKE 1 TABLET BY MOUTH EVERY DAY NIGHTLY 90 tablet 3 01/26/2024 traZODone (DESYREL) 50 mg tabletIndication s:Chronic lumbosacral pain TAKE 1 TABLET BY MOUTH EVERY DAY AT NIGHT 90 tablet 3 01/26/2024 triamcinolone (KENALOG) 0.1 % ointment triamcinolone acetonide 0.1 % topical ointment documented as of this encounter Discharge Disposition Disposition Code Departure Means Destination Discharge to home or self care documented in this encounter Progress Notes * Cody Callahan MD - 11/02/2024 2:00 PM CDT C7-T1 Interlaminar Epidural Steroid Injection with Right Paramedian Approach [facility] Department of Orthopedic Surgery Division of Physical Medicine and Rehabilitation Patient name: Angie Elder Date of : 1965 Date of service: 11/02/2024 Angie Elder presents to the fluoroscopy suite for a fluoroscopically guided C7-T1 interlaminarepidural steroid injection for conservative treatment of cervical radicular pain. After informed consent was obtained, the patient lay in the prone position on the fluoroscopy table. The area was prepped and draped in sterile fashion. Using a 25 gauge 2 inch needle, 1-2 mL of 1% lidocaine was infused subcutaneously to anesthetize the region. Then, an 18G 3.5 inch Tuohy needle was advanced to the posterior interlaminar space. Then access into the epidural space was obtained with a loss of resistance syringe to PF normal saline. Confirmation into the epidural space was obtained with infusion of0.5 mL of Omnipaque contrast, which showed epidural flow. Then a combination of 0.5 mL of 1% lidocaine, 1.5 ml of 6mg/mL Betamethasone (9mg total). The needle was flushed with PF normal saline, removed, and site was dressed appropriately. The patient tolerated the procedure without complications. Pre, intra-operative, and post procedure vitals were stable. Nursing was present for the entirety of the procedure. The patient was given verbal as well as written follow-up instructions. A pain diary was given to the patient with follow-up instructions. Prior to the start of the procedure, verbal verification by the procedure participant(s) confirmed (as applicable): correct patient identity; correct site/side marked and visible; agreement on the procedure to be done; correct patient positioning; an accurate procedure consent form, relevant imagesand results correctly labeled and displayed; any safety precautions based on clinical history and/or medication use have been addressed. Fluoroscopic guidance was used to assist C7-T1 interlaminar epidural steroid injection. Confirmation of needle placement into the epidural space via the right paramedian C7-T1 interlaminar space was obtained by injecting approximately 0.5 mL of Omnipaque contrast. There was no evidence of vascular u ptake or subdural flow noted. I personally performed or was present for the procedure above. Dr. Subramanian assisted with this procedure. Cody Callahan MD documented in this encounter Plan of Treatment [...] the likelihood of falling Lifestyle No Soraida Lim RN Note: Below are four things you [...] GUIDANCE Schedule Routine, Read Routine (OP Routine) 11/02/2024 2:29 PM CDT Radiculopathy of cervical region documented in this encounter Results * IR Epidural Injection Cervical W Guidance (Interlaminar) (11/02/2024 2:29 PM CDT) Narrative [facility] - 11/02/2024 2:30 PM CDT The images from this study are not interpreted by Radiology. Please refer to the physician's procedure / OR operative note. us Lori Aguila MD IMG IR PROCEDURES Final Re sult [facility] documented in this encounter Visit Diagnoses Diagnosis Radiculopathy of cervical region- Primary documented in this encounter Administered Medications Inactive Administered Medications - up to 3 most recent administrations Medication Order MAR Action Action Date Dose Rate Site betamethasone (CELESTONE) injection As needed, Starting on Laureen 11/02/24 at 1420, Intra-Op Given 11/02/2024 2:20 PM CDT 9 mg iohexoL (OMNIPAQUE) 300 mg iodine/mL injection solution As needed, Starting on Laureen 11/02/24 at 1420, Intra-Op Given 11/02/2024 2:20 PM CDT 0.5 mL lidocaine (PF) (XYLOCAINE) 10 mg/mL (1 %) preservative free injection As needed, Starting on Laureen 11/02/24 at 1420, Intra-Op Given 11/02/2024 2:20 PM CDT 5 mL sodium chloride 0.9% solution As needed, Starting on Laureen 11/02/24 at 1421, Intra-Op Given 11/02/2024 2:21 PM CDT 3 mL documented in this encounter Care Teams Transportation Program Director Relationship Specialty Start Date End Date Tyson Talbert MD PCP - General 06/08/16 documented as of this encounter
--- OUTSIDE RECORDS SUMMARY | 2024-11-03 11:36 | XMS_ITS | Clinical Summary ---
Author Organization [facility] Address [address] [place] [address] Care Team Providers Care Business Analyst Intern Name Role Phone Tyson Talbert MD Primary [...] CDT Gender Identity Female 02/27/2021 1:39 PM SUPERVISOR PUBLICATIONS Sexual Orientation Straight 02/27/2021 1: 39 PM SUPERVISOR PUBLICATIONS Last Filed Vital Signs Vital Sign Reading Time Taken Comments Blood Pressure 135/75 03/06/2021 10:44 AM SUPERVISOR PUBLICATIONS Pulse 76 03/06/2021 10:44 AM SUPERVISOR PUBLICATIONS Temperature 36.4 C (97.6 F) 03/06/2021 10:44 AM SUPERVISOR PUBLICATIONS Respiratory Rate 15 03/06/2021 10:4 4 AM SUPERVISOR PUBLICATIONS Oxygen Saturation 98% 03/06/2021 10: 44 AM SUPERVISOR PUBLICATIONS Inhaled Oxygen Concentration - - Weight 88.3 kg (194 lb 10.7 oz) 03/06/2021 7:24 AM SUPERVISOR PUBLICATIONS Height 152.4 cm (5') 03/06/2021 7:24 AM SUPERVISOR PUBLICATIONS Body Mass Index 38.02 03/06/2021 7:24 AM SUPERVISOR PUBLICATIONS Plan of Treatment Health Maintenance Due Date [...] of 2) 02/23/2020 12/29/2019 COVID-19 Vaccine ( - season) 2024 02/11/2021, 05/16/2020, 05/08/2020, Additional history exists Meningococcal B Vaccine Aged Out No l onger eligible based on patient's age to complete this topic Meningococcal Vaccine Aged Out No samir akira eligible based on patient's age to complete this topic RSV Immunizations Under 20 Months Aged Out No longer eligible based on patient's age to complete this topic Medical Devices Implanted Type Area Office Machine Inspector Device Identifier Shelf Expiration Date Model / Serial / Lot Interstim Ii Neurosteimulator Implanted:Qty: 1 on 03/06/2021 by Julio Matos MD at [facility] [place] Stimulator Implant N/A: Buttocks [employer] 10/12/2021 [id number] / [id number] / Insurance MEDICARE [facility] Advance Directives * Full Code (Latest Code Status on File) Date Activated Date Inactivated Comments 03/06/2021 9:33 AM 03/06/2021 12:56 PM Care Teams Business Analyst Intern Relationship Specialty Start Date End Date Tyson Talbert MD [address] [phone] PCP - General INTERNAL MEDICINE 03/03/21
--- OUTSIDE RECORDS SUMMARY | 2024-11-03 11:36 | XMS_ITS | Encounter Summary ---
Author Organization [facility] Address [address] [place] [address] Care Team Providers Care Seal Mixing Operator Name Role Phone Tyson Talbert MD Primary Care Provider [phone] Encounter Details Date Type Department Care Team (Late st Contact Info) Description 03/02/[address] [facility] [place] [address] Nash Butler MD [address] [facility] [place] [address] Social History Tobacco Use Types Packs/Day Years Used Date Smoking Tobacco: Never Assessed Comments Unknown Sex and Gender Information Value Date Recorded Sex Assigned at Not on file Legal Sex Female 8:27 PM CDT Gender Identity Female 02/27/2021 1:39 PM STATION CAPTAIN Sexual Orientation Straight 02/27/2021 1: 39 PM STATION CAPTAIN COVID-19 Exposure Response Date Recorded In the last month, have you been in contact with someone who was confirmed or suspected to have Coronavirus / COVID-19? No / Unsure 03/03/2021 11:48 AM STATION CAPTAIN documented as of this encounter H&P Notes [...] and replace neurostimulator NASH BUTLER MD 03/02/2021 ION CAPTAIN documented in this encounter Plan of Treatment Not on file documented as of this encounter Visit Diagnoses Not on filedocumented in this encounter Care Teams Seal Mixing Operator Relationship Specialty Start Date End Date Tyson Talbert MD [address] [phone] PCP - General INTERNAL MEDICINE 03/03/21 documented as of this encounter
--- OUTSIDE RECORDS SUMMARY | 2024-11-03 11:37 | XMS_ITS | Clinical Summary ---
Author Organization [facility] Address [address] [place] [address] Care Team Providers Care Flame Gouger Name Role Phone Tyson Talbert MD Primary Care Provider [phone] Source Comments [facility] Affiliates and Associated Physician Practices is amultiple site organization consisting of ambulatory clinics and hospital sitesin [place], [place], [place] and [place]. This disclosure is being madepursuant to the Care Everywhere program and may not contain all information available regarding this patient. Last updated 17.[facility] Allergies Active Allergy Reactions Criticality Noted Date [...] needed for Anxiety Active Lido-Capsaicin- Men-Methyl Jalen (XOOD-LNERT-SKT OCAINE EX) by Apply externally route once [...] on file Legal Sex Female 5:24 AM SALES REVIEW CLERK Gender Identity Not on file Sexual Orientation [...] 11:30 AM CDT Height 167.6 cm (5' 5.98) 09/04/2019 11:30 AM C DT Body Mass [...] MAMMOGRAM 1967 MEDICARE AWV 12 MONTHS 1967 HIV SCREENING 1982 HEPATITIS C SCREENING 02/10/1985 DTAP/TDAP/TD VACCINES (1 - Tdap) 1986 HEPATITIS B VACCINE (1 of 3 - 19+ 3-dose series) 1986 PNEUMOCOCCAL VACCINE 50+ (1 of 1 - PCV) 2017 ZOSTER VACCINE (1 of 2) 2017 SCREENING FOR DIABETES 08/29/2022 0, 09/09/2018, 09/02/2017, Additional history exists DEPRESSION SCREENING 02/16/2024 COVID-19 VACCINE ( season) 2024 INFLUENZA VACCINE (#1) 2024 9, 01/10/2018, 02/28/2015, Additional history exists HIB VACCINE [...] Resulting Agency Comment Lab [facility] performed at: [facility] [address] [facility] [id number] Gen Moralez MD LAB - CHEMISTRY OR DERABLES Final Result [facility] INSURANCE BILL [address] [place] [phone] from Last 3 Months or Most Recently Relevant to Health Maintenance Insurance [facility] MEDICARE [facility] MEDICARE [facility] MEDICARE [facility] Member Subscriber Plan / Payer ( fective 2016-Present) Name:Mayda Elder Relation to Subscriber:Spouse Name:DORA ELDER Subscriber ID:Not on file Date of :1960 Payer ID:[id number] (NAIC) Group ID:Not on file Type:O Address: [place] [phone] MEDICARE [facility] Member Subscriber Plan / Payer ( fective 2016-Present) Name:Mayda Elder Relation to Subscriber:Spouse Name:DORA ELDER Subscriber ID:Not on file Date of :1960 Payer ID:[id number] (NAIC) Type:O Address: [place] [phone] [facility] MEDICARE [facility] MEDICARE [employer] MEDICARE Member Subscriber Plan / Payer (Ef fective 2008-Present) Name:Mayda Elder Member ID:[id number] Relation to Subscriber:Self Name:MAYDA ELDER Subscriber ID:[id number] Payer ID:Not on file Group ID:Not on file Type:Medicare Address: [place] [id number] [facility] Address: [facility] [id number] [place] [phone] MEDICARE Member Subscriber Plan / Payer (Ef fective 2008-Present) Name:Mayda Elder Member ID:[id number] Relation to Subscriber:Self Name:MAYDA ELDER Subscriber ID:[id number] Payer ID:Not on file Group ID:Not on file Type:Medicare Address: [place] [phone] [employer] MEDICARE T Care Teams Flame Gouger Relationship Specialty Start Date End Date Tyson Talbert MD [address] [place] [phone] PCP - General 06/29/17
--- OUTSIDE RECORDS SUMMARY | 2024-11-03 11:37 | XMS_ITS | Clinical Summary ---
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 Do not use on face or groin or axilla. 05/24/19 16 Active HYDROcodone-janet taminophen (NORCO) 7.5-325 mg per tabletIndicatio ns:Pain 0 07/10/19 18 Active polyethylene glycol (MIRALAX) 17 gram/dose powder daily. 05/19/19 09 Active triamcinolone (KENALOG) 0.1 % ointment triamcinolone acetonide 0.1 % topical ointment Active PREMARIN 1.25 mg tablet 09/18/[address] (PROTONIX) 40 mg EC tablet Take 40 mg by mouth daily 06/19/19 20 Active timolol (TIMOPTIC) 0.5 % ophthalmic solution Administer 1 drop into both eyes every morning 03/06/19 22 Active prednisoLONE acetate (PRED FORTE) 1 % ophthalmic suspension PLEASE SEE ATTACHED FOR DETAILED DIRECTIONS 05/20/19 23 Active metroNIDAZOLE (FLAGYL) 500 mg tablet Take 1 tablet (500 mg total) by mouth every 8 (eight) hours 07/01/[address] (CYMBALTA) 30 mg capsule Take by mouth daily 05/19/19 23 Active COVID-19 At-Home Test kit FOLLOW INSTRUCTIONS INCLUDED WITH THE PACKAGE. 06/11/19 23 Active losartan (COZAAR) 50 mg tablet Take 1 tablet (50 mg total) by mouth nightly 07/11/19 23 Active tiZANidine (ZANAFLEX) 4 mg tabletIndicatio ns:Spasm of muscle TAKE 1 TABLET BY MOUTH EVERY DAY NIGHTLY 90 tablet 3 01/26/20 24 Active traZODone (DESYREL) 50 mg tabletIndicatio ns:Chronic lumbosacral pain TAKE 1 TABLET BY MOUTH EVERY DAY AT NIGHT 90 tablet 3 01/26/20 24 Active lidocaine (LIDODERM) 5 % Apply 2 patches for 12 hours on and 12 hours off. 180 patch 03/22/19 25 Active pregabalin (LYRICA) 75 mg capsuleIndicati ons:Chronic lumbosacral pain TAKE 1 CAPSULE BY MOUTH 3 TIMES A DAY. 270 capsule 08/08/19 25 Active LORazepam (ATIVAN) 1 mg tablet TAKE 1 TABLET BY MOUTH EVERYDAY AT BEDTIME 30 tablet 10/20/19 25 Active LORazepam (ATIVAN) 1 mg tablet TAKE 1 TABLET BY MOUTH EVERYDAY AT BEDTIME 30 tablet 12/27/19 24 025 Discontin ued(Reord er) Active Problems Problem Noted Date Diagnosed Date [...] prn Assessment & Plan (01/31/2020 8:44 PM DIETITIAN CONSULTANT): 6 month follow-up. 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 Assessment & Plan (08/03/2019 5:32 PM CDT): Not visually significant to pt at this time- discussed future management Assessment & Plan (08/04/2018 8:39 PM CDT): Not visually significant to pt at this time. Assessment & Plan (12/23/2017 6:54 AM DIETITIAN CONSULTANT): Not visually significant, observe. Encounters Date Type Department Care Team Description 11/02/2024 1:14 PM CDT - 11/02/2024 11:59 PM CDT Hospital Encounter [facility] [address] [place] [address] Cody Callahan MD Radiculopathy of cervical region (Primary Dx) Discharge Disposition: Discharge to home or self care 10/19/2024 12:35 PM CDT - 10/19/2024 11:59 PM CDT Hospital Encounter [facility] [address] [place] [address] Encounter for screening mammogram for malignant neoplasm of breast Discharge Disposition: Discharge to home or self care 10/19/2024 11:00 AM CDT Office Visit [facility] Medicine Orthopaedic Surgery [address] [facility] 6[address] [place] [address] [place] [phone] Lori Aguila MD Radiculopathy of cervical region (Primary Dx); Chronic lumbosacral pain 10/18/2024 Telephone [facility] Medicine Ophthalmology [address] [place] [address] Quiana Moore MD from Last 3 Months Surgical History Surgery Date Site/Laterality Comments MA ARTHRD ANT INTERBODY MIN DSC LUMBAR Lumbar Vertebral Fusion - (Added by Conv) INSERTION / PLACEMENT / REVISION NEUROSTIMULATOR Implantation Of Intraspinal Neurostimulator - (Added by Conv) MA DELIVERY ONLY Section - (Added by TW Conv) ARTHRODESIS Arthrodesis Cervical - (Added by TW Conv) IR INJECTION ARTHROGRAM SI JOINT BILATERAL WITH GUIDANCE 10/28/2017 Bilateral IR INJECTION ARTHROGRAM SI JOINT BILATERAL WITH GUIDANCE 03/24/2018 Bilateral IR INJECTION ARTHROGRAM SI JOINT BILATERAL WITH GUIDANCE 08/29/2018 Bilateral SPINE SURGERY IR INJECTION ARTHROGRAM SI JOINT BILATERAL WITH GUIDANCE 01/20/2021 Bilateral HYSTERECTOMY 37y OOPHORECTOMY Bilateral 39y Medical History Medical History Date Comments Osteoarthritis Arthritis - (Add ed by Conv) Dysuria Dysuria - (Added by Conv) Asymptomatic menopausal state Me nopause - (Added by Conv) Cataract Sleep apnea uses every night Chronic lower back pain Neck pain Family History Medical History Relation Name Comments Heart disease Father Family history of cardiac disorder - (Added by Conv) Hypertension Mother Family history of hypertension - (Added by Conv) Breast cancer Sister Ovarian cancer Neg Hx Pancreatic cancer Neg Hx Prostate cancer Neg Hx Relation Name Status Comments Father Mother Alive Sister Social History Tobacco Use Types Packs/Day Years [...] on file Legal Sex Female 2:19 PM DIETITIAN CONSULTANT Gender Identity Female 12/23/2022 11:06 AM DIETITIAN CONSULTANT Sexual Orientation Straight 12/23/2022 11 :06 AM DIETITIAN CONSULTANT Obstetrics History Para Term AB IAB SAB Ectopic Multiple Livin g Live Births 3 2 Date Outcome GA Total Labor Labor/2nd/3rd Weight Sex Type Anes PTL Brooklynn A1 A5 Name Clin Last Filed Vital Signs Vital Sign Reading Time Taken Comments Blood Pressure 145/90 11/02/2024 2:34 PM CDT Pulse 90 11/02/2024 2:34 PM CDT Temperature 36.7 C (98 F) 08/21/2022 4:56 PM CDT Respiratory Rate 16 11/02/2024 2:34 PM CDT Oxygen Saturation 96% 11/02/2024 2:34 PM CDT Inhaled Oxygen Concentration - - Weight 83.9 kg (185 lb) 10/19/2024 12:54 PM CDT Height 167.6 cm (5' 6) 10/19/2024 12:54 PM CDT Body Mass Index 29.86 10/19/2024 12:54 PM CDT Plan of Treatment Health Maintenance Due Date Last Done Comments Colon Cancer Screening-Colonoscopy 1967 Depression Screening 1967 Hepatitis C Screening 1967 DTaP/Tdap/Td Vaccine (1 - Tdap) 1978 Hepatitis B Screening 1985 Regular Well Visit/Exam 18-64 1985 Covid-19 Vaccine ( season) 2024 02/11/2021, 05/08/2020, 04/18/2020 Influenza Vaccine (#1) 2024 4, 12/17/2021, 12/27/2020, Additional history exists Breast Cancer Screening-Mammogram 10/19/2025 10/19/2024, 12/24/2022, 12/23/2022, Additional history exists Zoster Vaccine Completed 01/04/2024, 12/29/2019 Pneumococcal vaccine <65 Aged Out No longer [...] home safety. Medical Devices Implanted Type Area Catering Sous Chef Device Identifier Shelf Expiration Date Model / Serial / Lot Neurostimulator Neurostimulator Right: Bladder Description:Medtronic Spinal Cord Stimulator Spinal Cord Stimulator Lumbar-Sa cral Spine Description:[employer] c, Generator on left side Procedures Procedure Name Priority Date/Time Associated Diagnosis Comments IR EPIDURAL INJECTION CERVICAL W GUIDANCE Schedule Routine, Read Routine (OP Routine) 11/02/2024 2:29 PM CDT Radiculopathy of cervical region SCREENING MAMMOGRAM BILATERAL W PATRICK Schedule Routine, Read Routine (OP Routine) 10/19/2024 1:00 PM CDT Encounter for screening mammogram for malignant neoplasm of breast from Last 3 Months Results * IR Epidural Injection Cervical W Guidance (Interlaminar) (11/02/2024 2:29 PM CDT) Narrative [facility] - 11/02/2024 2:30 PM CDT The images from this study are not interpreted by Radiology. Please refer to the physician's procedure / OR operative note. Lori Aguila MD IMG IR PROCEDURES Final Re sult [facility] * Screening Mammogram Bilateral W Patrick (10/19/2024 1:00 PM CDT) Anatomical Region Laterality Modality Breast Bilateral Mammography Impressions 10/20/2024 9:09 AM CDT Bilateral No evidence of malignancy in either breast. OVERALL BI-RADS FINAL ASSESSMENT: 1 - Negative RECOMMENDATION: Recommend bilateral annual screening mammography. Narrative 10/20/2024 9:09 AM CDT EXAMINATION: Screening Mammogram Bilateral W Patrick: 10/19/2024 COMPARISON: Relevant prior studies available at the time of interpretation were reviewed, including the most recent mammogram on: 12/23/2022. TECHNIQUE: Mammography was performed with 2D and 3D digital breast tomosynthesis (DBT) images. CAD was utilized. BREAST PARENCHYMAL COMPOSITION: There are scattered areas of fibroglandular density. FINDINGS: Bilateral There is no suspicious mass, calcification, or architectural distortion in either breast. Alysia Bernard MD IMG MAMMO PROCEDURES Final Re sult from Last 3 Months Insurance [facility] [employer] MEDICARE PPO MEDICARE [facility] CHOICE PLUS [facility] [place] [id number] [employer] CHOICE MEDICARE PPO Care Teams Boarding Machine Operator Relationship Specialty Start Date End Date Tyson Talbert MD PCP - General 06/08/16
[2024-11-03 12:10] LABS: Hematocrit 39.2 % (37.0-47.0); Hemoglobin 13.7 g/dL (12.0-15.0); Immature Granulocyte Percent A 0.5 % (0-0.5); Lymphocytes Absolute Auto 0.93 K/mm3 (0.9-3.2); Mean Corpuscular HGB Conc 34.9 g/dl (32-36); Mean Corpuscular Hemoglobin 31.8 pg (26-34); Mean Corpuscular Volume 91.0 fl (80-100); Nucleated Red Blood Cells Absolute Auto 0.000 K/mm3 (0.0-0.012); Nucleated Red Blood Cells Perc 0.0 % (0.0-0.2); Platelet Count Result 186 k/mm3 (150-375); Red Blood Count 4.31 M/mm3 (4.2-5.4); White Blood Count 16.0 K/mm3 (4.5-10.0)
[2024-11-03 12:31] LABS: Alanine Aminotransferase 34 U/L (6-35); Albumin Level 4.2 g/dL (3.5-5.1); Alkaline Phosphatase 47 U/L (38-126); Anion Gap 10 mmol/L (4-12); Aspartate Amino Transferase 37 U/L (14-36); Bilirubin,Total 0.3 mg/dL (0.2-1.3); Blood Urea Nitrogen 14 mg/dL (7-17); Calcium 9.3 mg/dL (8.4-10.2); Carbon Dioxide 25 mmol/L (22-30); Chloride 103 mmol/L (98-107); Cholesterol 147 mg/dL (0-200); Estimated Glomerular Filt Rate > 60; Glucose 115 mg/dL (65-110); HDL Direct 57 mg/dL; Magnesium 1.7 mg/dL (1.6-2.3); Potassium 3.8 mmol/L (3.4-5.0); Sodium 138 mmol/L (137-145); Total Protein 7.5 g/dL (6.3-8.2); Triglycerides 92 mg/dL (<150)
[2024-11-03 12:46] LABS: Free T4 Free Thyroxine 0.68 ng/dL (0.78-2.19)
[2024-11-03 13:07] LABS: Thyroid Stimulating Hormone 0.400 uIU/mL (0.465-4.680)
[2024-11-04 07:09] LABS: Vitamin B12 417 pg/mL (232-1245)
== END 2024-11-03 11:32 | disposition home or self-care (01) ==
PROVIDERS: PCP Internal Medicine; Visit Provider Internal Medicine
DX: I10 Essential (primary) hypertension (principal); K21.9 Gastro-esophageal reflux disease without esophagitis
CPT/HCPCS: 36415; 80053; 80061; 82607; 83735; 84439; 84443; 85025